=== PATIENT | female | born 1940 | race Caucasian/White ===

== ENCOUNTER 2016-05-12 02:54 | Inpatient (IN) | payer OTHER ==
--- NOTE | 2016-05-12 03:09 | EDPHY ---
HPI/HX/ROS/PE/MDM Narrative: Chief complaint: Left ankle injury HPI: 76-year-old woman with unclear medical history [place] . Patient was being assisted to ambulate by her when she slipped and twisted her ankle. Per EMS when they arrived she seems confused and this has progressed during the transport of her. states that she does have a history of dementia and this seems to have been waxing waiting recently been worsening the last several weeks. Patient has been refusing all treatment by EMS. They gave her some Versed and fentanyl and she has calmed down. Further history is unavailable as the patient is refusing to answer questions. ROS: Unavailable secondary the patient is unwilling to answer questions or cooperate Past medical history: Hypertension Chronic hypoxic respiratory failure Multiple myeloma in remission Morbid obesity Compression fracture Breast cancer status post lumpectomy and radiation Peripheral neuropathy Bilateral hip and knee arthroplasties Physical exam: Gen: Awake, Alert, No Distress HEENT: Nose: no rhinorrhea Eyes: PERRLA, EOMI Mouth: Dry mucosa Neck: Supple, no JVD Chest: nontender, lungs clear to auscultation Heart: S1, S2 normal, no murmur Abd: Soft, non-tender, no guarding Back: no CVA tenderness, no midline tenderness Ext: no edema, left ankle ears some swelling and deformity to the lateral ankle. There is tenderness in the lateral malleolus. Skin: no rash Neuro: CN II-XII intact, Sensation grossly intact, Strength 5/5 in bilateral upper and lower extremities ED Course: CT scan of the brain: No acute process Left ankle x-ray. Old appearing avulsion of the medial malleolus, no obvious acute injuries. Impression: 76-year-old female presenting after a fall with ankle pain. Patient has a delirium now, possibly secondary to recently worsening dementia symptoms. Per patient has been getting increasing confused particularly in the evening. She is normally requires assistance transferring at home, now has ankle pain with no obvious deformity. She has required Versed and fentanyl by EMS. Still awaiting blood results. She will certainly need to be admitted for further evaluation. I have discussed with Dr. Gillette, hospitalist. Will admit to his service for further care. General Initial Vital Signs: Initial Vital Signs Temperature (C) 35.9 C L 05/12/16 03:08 Heart Rate 68 05/12/16 03:08 Respiratory Rate 18 05/12/16 03:08 Blood Pressure 171/72 H 05/12/16 03:08 O2 Sat (%) 93 05/12/16 03:08 O2 Delivery Mode Nasal Cannula O2 (L/minute) 4 Allergies/Adverse Reactions: No Allergies [NKDA] Allergy (Unknown, Verified 08/20/12 13:30) Home Medications: Medication Instructions Recorded ALPRAZolam [Xanax 0.5 MG (*)] 1 tab PO TID PRN 10/24/15 Fluticasone/Salmeter 100/50Mcg 1 puffs IH BID 10/24/15 [Advair 100/50 (*)] Furosemide [Lasix 20 MG (*)] 40 mg PO DAILY 10/24/15 Gabapentin [Neurontin 300 MG (*)] 600 mg PO HS 10/24/15 Herbals/Supplements -Info Only 1 ea PO DAILY 10/24/15 Potassium Cl [Klor-Con 10 meq (RX)] 20 meq PO DAILY 10/24/15 amLODIPine BESYLATE [Norvasc 5 mg 5 mg PO DAILY 10/24/15 (*)] celeCOXIB [Celebrex (*)] 200 mg PO DAILY 10/24/15 diphenhydrAMINE [Benadryl 25 MG 25 mg PO DAILY PRN 10/24/15 (*)] Gabapentin [Neurontin 300 MG (*)] 300 mg PO DAILY06 10/25/15 Oxybutynin Chloride [OXYBUTYNIN 5 mg PO DAILY 10/25/15 CHLORIDE ER] Nystatin Powder [Mycostatin Powder] 1 devendra TP TID #0 powder 10/27/15 oxyCODONE IR [Oxycodone Ir (*)] 5 mg PO Q4 PRN #0 tab 10/27/15
[2016-05-12] MEDS ORDERED: HALOPERIDOL LACT 5 MG/ML INJ IVP ONE (05:15)
[2016-05-12] MEDS ORDERED: HALOPERIDOL LACT 5 MG/ML INJ ONE (05:18)
[2016-05-12] MEDS ORDERED: ONDANSETRON DISINTEGRATING 4 MG TAB PO PRN (07:25)
[2016-05-12] MEDS ORDERED: ONDANSETRON 4 MG/2 ML VIAL IVP PRN (07:25)
--- NOTE | 2016-05-12 08:01 | GHP ---
[f rep st] HISTORY AND PHYSICAL DATE OF ADMISSION: 05/12/2016 CHIEF COMPLAINT: Left ankle pain. HISTORY OF PRESENT ILLNESS: This is a 76-year-old female, with a history of obesity and chronic nitin lity at baseline. At baseline she is able to pivot, but her basically transports her from be d to wheelchair to bathroom. Apparently, when she was pivoting she twisted her ankle and is having p ain. In the emergency department she is having significant amount of shoulder pain and was unable to cooperate. She has received 5 mg Haldol and is much more sedated. Her says that she has be en getting more confused in the evening, but she does respond to some questions, currently she is not that interactive. REVIEW OF SYSTEMS: Unable to obtain secondary to patient's sedation. PAST MEDICAL HISTORY: 1. Morbid obesity. 2. Asthma. 3. Multiple myeloma, in remission. 4. History of DVT. 5. History of breast cancer. 6. History of peripheral neuropathy secondary to chemotherapy. 7. Chronic respiratory failure. 8. Arthritis. 9. Hypertension. SOCIAL HISTORY: No smoking or alcohol. Lives with her up in the [facility]. FAMILY HISTORY: Reviewed and not contributory. PHYSICAL EXAM: VITAL SIGNS: Afebrile. Blood pressure is 168/90, heart rate 71, oxygenation 91% on 4 L. GENERAL: The patient is well developed, in no apparent distress. HEENT: Nonicteric sclerae. Extraocular movements intact. Moist mucous membranes. NECK: Supple. No thyromegaly. LUNGS: Poor effort, but clear to auscultation bilaterally anteriorly. CARDIOVASCULAR: Regular rhythm. A 2/6 s ystolic murmur right upper sternal border. ABDOMEN: Positive bowel sounds. Soft, nontender, nondis tended. No hepatosplenomegaly. EXTREMITIES: No clubbing, cyanosis, or edema. SKIN: Significant ex coriation and probable yeast infection over the perineal area. NEURO: Sedated. LABS: No labs were able to be done. Head CT: No acute abnormalities. Ankle x-ray: No obvious fracture. ASSESSMENT: This is a 76-year-old female, with chronic debility and probable advancing dementia, pre senting with left ankle sprain and failure to thrive. PLAN: 1. Left ankle sprain. We will see how she does with physical therapy. 2. Weakness. We will have to see what physical therapy assessment and social work in terms of abili ty for to care for her. 3. Shoulder arthritis. She had been on Celebrex. Will try to continue this if she is on it, when m ed reconciliation is done. 4. Dementia with confusion. 5. History of DVTs. Will use prophylaxis. /[id number]/MODL
--- NOTE | 2016-05-12 08:15 | DX ---
Left Ankle, Three Views History: Pain, post trauma. Fall. Confusion. Comparison: October 24, 2015 Findings: No ankle joint fracture, effusion, or dislocation is identified. There is severe pace planu s. There is a moderate plantar calcaneal spur. There is diffuse low bone density, suspicious for oste oporosis. Impression: Negative..
--- NOTE | 2016-05-12 08:28 | CT ---
CT Head Without Contrast History: Confusion. Fall. Comparison: June 2014. Technique: Standard noncontrast head CT protocol utilizing axial images acquired through the [facility]. Images were reconstructed down to 1.25-mm slice thickness as well. Radiation dose technique was u tilized. Findings: Mild periventricular and deep hemispheric white matter change is seen bilaterally. No evide nce for acute hemorrhage, intracranial mass, or acute infarct. Vascular calcifications are seen intra cranially indicating atherosclerotic disease. The ventricles, sulci, and cisterns are within normal l imits for the patient's age. No evidence for an extraaxial fluid collection. No evidence for skull fr acture. Impression: Mild periventricular and deep hemispheric white matter change that can be seen with small vessel ischemic disease. No evidence of acute intracranial abnormality. Results discussed with Dr. Chepe Clemente at 0339 hours on 12 May 2016. Final interpretation concurs with initial preliminary radiologist impression.
[2016-05-12 09:33] LABS: % IMMATURE GRANULYOCYTES 0.3 % (0.0-1.1); ABSOLUTE IMMATURE GRANULOCYTES 0.03 10^3/uL (0.00-0.10); ADD DIFF? NO; ADD MORPH? NO; ADD SCAN? NO; ATYPICAL LYMPHOCYTE FLAG 10 (0-99); FRAGMENT RBC FLAG 0 (0-99); HEMATOCRIT 41.3 % (38.0-47.0); HEMOGLOBIN 13.9 g/dL (12.6-16.3); LEFT SHIFT FLG 0 (0-99); LIPEMIA HEMOLYSIS FLAG 80 (0-99); MEAN CELL HEMOGLOBIN 30.1 pg (27.9-34.1); MEAN CELL HEMOGLOBIN CONCENTR. 33.7 g/dL (32.4-36.7); MEAN CELL VOLUME 89.4 fL (81.5-99.8); MEAN PLATELET VOLUME 8.7 fL (8.7-11.7); PLATELET CLUMPS FLAG 0 (0-99); PLATELET COUNT 183 10^3/uL (150-400); RED BLOOD CELL COUNT 4.62 10^6/uL (4.18-5.33); RED CELL DISTRIBUTION WIDTH 12.5 % (11.5-15.2)
[2016-05-12 10:05] LABS: ALANINE AMINOTRANSFERASE 29 IU/L (9-52); ALBUMIN 3.4 g/dL (3.5-5.0); ALKALINE PHOSPHATASE 108 IU/L (38-126); ANION GAP 7 mEq/L (8-16); ASPARTATE AMINOTRANSFERASE 26 IU/L (14-46); BILIRUBIN,TOTAL 0.6 mg/dL (0.1-1.4); CALCIUM 8.9 mg/dL (8.5-10.4); CARBON DIOXIDE 26 mEq/l (22-31); CHLORIDE 106 mEq/L (97-110); CREATININE 0.8 mg/dL (0.6-1.0); GLOMERULAR FILTRATION RATE > 60; GLUCOSE 101 mg/dL (70-100); POTASSIUM 4.6 mEq/L (3.5-5.2); SODIUM 139 mEq/L (134-144)
[2016-05-12] MEDS ORDERED: oxyCODONE IR 5 MG TAB PO PRN (11:14)
[2016-05-12] MEDS ORDERED: ALPRAZolam 0.5 MG TAB PO PRN (12:02)
[2016-05-12] MEDS ORDERED: ALBUTEROL 60 PUFFS/8 GM MDI IH PRN (12:02)
--- NOTE | 2016-05-12 15:47 | WOCRNPDOC ---
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 Injury is a combination of both moisture-related factors and shear, with shallow, partial- thickness, friable wounds on both buttocks. Scar tissue noted throughout, indicating this is a long-standing problem for patient. Currently, entire site in blanching. However, given the fragile appearance of this tissue and patient' s immobility, she is at high risk for a pressure-related injury. Advised clear zinc w/ geraldine-care, along w/ turns q. 2 (side to side only), and an Accu-max pump applied to the bed for pressure redistribution. Bilateral Breast Dressing Type: Open to Air Exudate Amount: None Exudate Characteristic(s): None Geraldine Wound Tissue: Raw Geraldine Wound Swelling: None Wound Bed Color: Red Wound Bed Constitution: Smooth Tissue Site Odor: Slight Skin Integrity Problem Comment: Raw, denuded skin under bilateral breast folds, w/ shallow, linear wounds noted. Consistent in appearance with itertriginous dermatitis, where redness is mirrored on both the upper and lower aspect of the folds. Advised webfed offset press operatorMEGAN Schwartz to remove existing anti-fungal cream and apply Interdry sheets to both folds to help manage moisture and friction. Bilateral Groin Incont Assoc Dermatitis Dressing Type: Open to Air Exudate Amount: Scant Exudate Color: Reddish/Yellow Exudate Characteristic(s): Serosanguinous Geraldine Wound Tissue: Erythema, Raw, Swollen, Weeping, Denuded Geraldine Wound Swelling: Moderate Wound Bed Color: Red Skin Integrity Problem Comment: Severe IAD noted in both groin folds, w/ scattered vesicles noted. While the geraldine-wound tissue is consistent w/ IAD, the vesicles are a different type of presentation and this injury is possibly a combination etiologies. Advised webfed offset press operatorMEGAN Yates to remove anti-fungal cream, which is adding too much moisture. Placed Interdry sheets in both groin folds, covering areas of denudement. Bilateral Pannus Dermatitis Dressing Type: Open to Air Exudate Amount: None Exudate Characteristic(s): None Geraldine Wound Tissue: Blanching, Erythema Geraldine Wound Swelling: Mild Wound Bed Color: Red Wound Bed Constitution: Smooth Tissue Skin Integrity Problem Comment: Red, denuded skin with shallow, linear wounds noted in bilateral pannus, consistent in appearance w/ intertriginous dermatitis. Skin has characteristic mirrored redness on both upper and lower fold, w/ linear opening at the base of the fold. Supplied RN w/ Interdry sheets to place in folds, which will help w/ both moisture and friction.
[2016-05-12] MEDS: morphINE 10 MG/0.5 ML UDSYR PO PRN ×2 (16:32→21:53)
[2016-05-12] MEDS: HEPARIN 5,000 UNIT/0.5 ML SYR SC SCH ×2 (16:36→22:03)
[2016-05-12 17:12] LABS: COLOR YELLOW; LEUKOCYTE ESTERASE,URINE TRACE (NEGATIVE); NITRITE,URINE NEGATIVE (NEGATIVE)
[2016-05-12 17:15] LABS: BACTERIA TRACE /hpf (NONE SEEN); MUCUS TRACE /lpf (NONE-1+)
[2016-05-12] MEDS: MONTELUKAST SODIUM 10 MG TAB PO SCH (18:23)
[2016-05-12] MEDS: FLUTICASONE/SALMETER 100/50MCG DISKUS IH SCH (19:57)
[2016-05-12] MEDS: GABAPENTIN 300 MG CAP PO SCH (22:01)
[2016-05-13] MEDS: morphINE 10 MG/0.5 ML UDSYR PO PRN ×5 (03:25→22:34)
[2016-05-13] MEDS: GABAPENTIN 300 MG CAP PO SCH ×2 (06:40→22:34)
[2016-05-13] MEDS: HEPARIN 5,000 UNIT/0.5 ML SYR SC SCH ×3 (06:41→22:35)
[2016-05-13] MEDS: FLUTICASONE/SALMETER 100/50MCG DISKUS IH SCH ×2 (08:08→21:01)
[2016-05-13] MEDS ORDERED: NON-FORMULARY NEW DRUG (Esomeprazole Mag Trihydrate [Nexium] 40 MG) PO SCH (09:00)
[2016-05-13] MEDS ORDERED: Herbals/Supplements -Info Only PO SCH (09:00)
--- NOTE | 2016-05-13 10:11 | HOSPPROG ---
Hospitalist Progress Note Assessment/Plan: 76 y/o female with history of dementia presenting with #Adult Failure to Thrive -Pt is refusing meds and refusing to eat # Immobility with reported left ankle sprain found to have severe incontinence associated dermatitis (present on admission) -Cont wound care -palliative care consult ordered # Dementia with possible Delirium vs progressive dementia -UA show trace leuks doubt uti is causing her symptoms -will monitor off abx for now and consider starting based on tomorrows serum wbc -IVF containing dextrose considering ketones in urine -check tsh # History of DVT #generalized pain and discomfort possibly contributing to delirium -cont to trial roxanol as ordered -bowel protocol Pt is high risk dispo: palliative care consult ordered dc to snf vs possibly home with hospice Subjective: pt is confused. does not answer questions appropriately Objective: Vital Signs Temp Pulse Resp BP Pulse Ox 36.8 C 90 18 148/73 H 94 05/13/16 04:31 05/13/16 08:08 05/13/16 08:08 05/13/16 04:31 05/13/16 08:08 Laboratory Results 05/12/16 09:24 05/12/16 09:24 05/12/16 05/13/16 05/14/16 05:59 05:59 05:59 Intake Total 100 Output Total 2 150 Balance -2 -50 refuses exam - Physical Exam Constitutional: chronically ill appearing, uncomfortable Neurologic: CN II-XII Intact, No AAOx3 (oriented to name only), No facial droop ICD10 Worksheet Patient Problems: Problems Problem Status Diagnosed Knee pain, acute Acute Lower limb nerve lesion Active Multiple myeloma in remission Active Back pain Acute Decubital ulcer Acute Yeast infection involving the vagina and surrounding area Acute GERD (gastroesophageal reflux disease) Chronic Hypertension Chronic
[2016-05-13] MEDS: PANTOPRAZOLE SODIUM 40 MG TAB PO SCH ×2 (10:37→11:07)
[2016-05-13] MEDS: POLYETHYLENE GLYCOL 3350 17 GM PKT PO SCH ×2 (10:37→11:25)
[2016-05-13] MEDS: LISINOPRIL/HCTZ 20/12.5MG 1 EA TAB PO SCH ×2 (10:37→11:07)
--- NOTE | 2016-05-13 15:52 | PDPCPN ---
Palliative Care Progress Note Assessment/Plan: Referring provider: Dr Goldstein Reason for consult: Complex medical decision making Symptom control HPI: Bridgett King is a 76 yo female with PMH HTN, Asthma, multiple myeloma in remission, dementia, chronic pain, and chronic disability admitted to the hospital for increasing confusion and inability to care for herself at home. Found to have severe incontinence related dermatitis and acute confusion without known cause. Patient and are familiar to me as she was seen at home for routine care September 2015. At that time patient dementia was mild and able to care for herself with the help of her . She was mostly wheelchair bound at that point due to chronic pain in her shoulders. Spoke with outpatient memory care program resident who states patient has continued to refuse evaluation by PCP but was receiving home health care services. Patient and family have been reluctant to accept increasing help at home at times. Palliative care consulted for complex medical decision making. Spoke with Layton over the phone who stated he is not returning back to the hospital until later this evening. Discussed palliative care and he stated "thats sending someone to hospice to ". Clarified purpose of palliative care is to have a discussion about goals of care as well as values and what matters most depending on the individual that sometimes mean hospice care. He stated he wasn't ready for hospice care. Agreed we would meet on Monday if Bridgett is still in the hospital. Assessment: Physical: - Pain: chronic neuropathy from breast cancer treatment. Chronic bilateral shoulder pain - on scheduled gabapentin and Celebrex - roxanol PRN for any increased pain - weakness - PT/OT on consult Emotional/psychological: Confusion: acute on chronic. Significant decline from baseline - haldol PRN is best choice for any agitation Advanced Care Planning: Is patient decisional?: No Code Status: Full MD POA: is decision maker, though no MDPOA on file Plan: Will have spirtual care follow up with tomorrow. PC will attempt follow up on Monday if still in the hospital. Otherwise plans are for [facility] for rehab when medically ready with potential for intermediate care after rehab completes. Subjective: no Objective: Social History: to [place]. Has a son and daughter involved. Medication list reviewed ROS: General: fatigue, weakness, weight loss ENT: negative Resp: negative GI: poor appetite : negative MS: shoulder pain Skin: excoriation Neuro: negative Psych: confusion, agitation, anxiety Functional assessment: PPS: 30% Functional status: dependent on ADLs, IADLs Vital Signs Temp Pulse Resp BP Pulse Ox 36.6 C 96 20 177/98 H 95 05/13/16 11:20 05/13/16 11:20 05/13/16 11:20 05/13/16 11:20 05/13/16 11:20 Laboratory Results 05/12/16 09:24 05/12/16 09:24 05/12/16 05/13/16 05/14/16 05:59 05:59 05:59 Intake Total 100 Output Total 2 150 Balance -2 -50 Physical Exam - Physical Exam General Appearance: alert, no apparent distress Respiratory: No respiratory distress, No accessory muscle use Skin: normal color, warm/dry Extremities: pedal edema Neuro/Psych: disoriented to person, disoriented to place, disoriented to time ICD10 Worksheet Patient Problems: Problems Problem Status Diagnosed Knee pain, acute Acute Palliative care encounter Acute Lower limb nerve lesion Active Multiple myeloma in remission Active Back pain Acute Decubital ulcer Acute Yeast infection involving the vagina and surrounding area Acute GERD (gastroesophageal reflux disease) Chronic Hypertension Chronic - ICD10 Problem Qualifiers (1) Palliative care encounter
--- NOTE | 2016-05-13 16:57 | WOCRNPDOC ---
WOCRN Advanced Assessment Note - Skin Integrity Problem, Advanced Assess Generalized Buttock Incont Assoc Dermatitis Geraldine Wound Tissue: Blanching, Erythema Geraldine Wound Swelling: Mild Skin Integrity Problem Comment: Site much improved since yesterday's assessment. Clear zinc and regular geraldine-care appear to be mitigating the IAD. Advised grey roll worker Salvador that nursing may apply Cavilon skin prep to skin across buttocks to protect skin. In addition, Allevyn Life foam dressing may be applied to open shear wounds on R buttock for additional protection. Wound RN will reassess site on 05/15.
[2016-05-13] MEDS: MONTELUKAST SODIUM 10 MG TAB PO SCH (18:27)
[2016-05-13] MEDS ORDERED: amLODIPine BESYLATE 5 MG TAB PO ONE (22:30)
[2016-05-13] MEDS: amLODIPine BESYLATE 5 MG TAB PO ONE ×2 (22:36→22:38)
[2016-05-14] MEDS: morphINE 10 MG/0.5 ML UDSYR PO PRN (01:15)
[2016-05-14] MEDS: GABAPENTIN 300 MG CAP PO SCH ×2 (04:46→04:58)
[2016-05-14] MEDS: HEPARIN 5,000 UNIT/0.5 ML SYR SC SCH ×3 (04:46→21:14)
[2016-05-14 05:33] LABS: % IMMATURE GRANULYOCYTES 0.4 % (0.0-1.1); ABSOLUTE IMMATURE GRANULOCYTES 0.03 10^3/uL (0.00-0.10); ADD DIFF? NO; ADD MORPH? NO; ADD SCAN? NO; ATYPICAL LYMPHOCYTE FLAG 10 (0-99); FRAGMENT RBC FLAG 0 (0-99); HEMATOCRIT 43.4 % (38.0-47.0); HEMOGLOBIN 14.4 g/dL (12.6-16.3); LEFT SHIFT FLG 0 (0-99); LIPEMIA HEMOLYSIS FLAG 80 (0-99); MEAN CELL HEMOGLOBIN 29.4 pg (27.9-34.1); MEAN CELL HEMOGLOBIN CONCENTR. 33.2 g/dL (32.4-36.7); MEAN CELL VOLUME 88.6 fL (81.5-99.8); MEAN PLATELET VOLUME 8.8 fL (8.7-11.7); PLATELET CLUMPS FLAG 0 (0-99); PLATELET COUNT 197 10^3/uL (150-400); RED CELL DISTRIBUTION WIDTH 12.5 % (11.5-15.2)
[2016-05-14 05:55] LABS: ANION GAP 12 mEq/L (8-16); CALCIUM 9.8 mg/dL (8.5-10.4); CARBON DIOXIDE 28 mEq/l (22-31); CHLORIDE 101 mEq/L (97-110); CREATININE 0.8 mg/dL (0.6-1.0); GLOMERULAR FILTRATION RATE > 60; GLUCOSE 99 mg/dL (70-100); POTASSIUM 4.2 mEq/L (3.5-5.2); SODIUM 141 mEq/L (134-144)
[2016-05-14] MEDS: D5W 1/2 NS W/ 20 KCl/L 1,000 ML IV SCH ×2 (08:46→23:10)
[2016-05-14] MEDS: FLUTICASONE/SALMETER 100/50MCG DISKUS IH SCH ×2 (09:23→19:08)
--- NOTE | 2016-05-14 09:37 | DX ---
Portable Chest 929 a.m. History: Altered mental status, history of recent fall Comparison: October 24, 2015, June 20, 2014, August 12, 2012 Findings: The heart is large. The pulmonary vascularity is equalized. There is no obvious pulmonary e maddy. There is chronic or recurrent consolidation at the lateral left base. It is difficult to exclud e a small left pleural effusion vs chronic pleural thickening. The right shoulder is again malalignme nt with the glenoid. Kyphoplasty cement is again noted in the L1 vertebral body. A thoracic-lumbar sc oliosis is stable. I do not identify an acute rib fracture. Impression: 1. Chronic cardiomegaly with pulmonary venous hypertension, but no overt failure. 2. Suspect chronic left basilar scarring rather than recurrent left lower lobe pneumonia. 3. Chronic or recurrent malalignment of the right shoulder.
[2016-05-14] MEDS: LISINOPRIL/HCTZ 20/12.5MG 1 EA TAB PO SCH (10:05)
[2016-05-14] MEDS: POLYETHYLENE GLYCOL 3350 17 GM PKT PO SCH (10:05)
[2016-05-14] MEDS: PANTOPRAZOLE SODIUM 40 MG TAB PO SCH (10:05)
[2016-05-14 10:21] LABS: COLOR YELLOW; LEUKOCYTE ESTERASE,URINE NEGATIVE (NEGATIVE); NITRITE,URINE NEGATIVE (NEGATIVE)
[2016-05-14 10:26] LABS: MUCUS 4+ /lpf (NONE-1+)
--- NOTE | 2016-05-14 14:35 | HOSPPROG ---
Hospitalist Progress Note Assessment/Plan: DIAGNOSIS: # ACUTE DECREASE IN ALERTNESS, UNCERTAIN ETIOLOGY # ACUTE ENCEPHALOPATHY, LIKELY MULTIFACTORIAL # ADMINISTRATION OF MULTIPLE SEDATING MEDICATIONS # ACUTE ANKLE INJURY WITHOUT EVIDENCE OF FRACTURE # DEHYDRATION WITH MILD HYPERNATREMIA # CHRONIC ADVANCED DEMENTIA # CHRONIC NEUROPATHY PAIN FROM PREVIOUS CHEMOTHERAPY The patient's mental status has changed remarkably since her admission here approximately 2 days ago. She came in with agitation and confusion, most likely caused by acute pain of injury on top of her chronic advanced dementia. Yesterday she was reported to me as having been still awake but somewhat stuporous, declining food and medications from the nursing staff though she was eating for her family. She was not answering questions for the staff. She did not participate well yesterday with attempted therapies. Today as I have visit the patient and observe her through today she has been barely responsive, only opening her eyes and turning slightly to voice but no other response. My highest suspicion is for dehydration in addition to multiple sedating medicines including fentanyl and Versed which were given in the ambulance route to the ER, Haldol given in the ER, multiple doses of narcotic analgesics given here, as well as her chronic gabapentin at fairly high dose for her age. She has home use of benzodiazepine and that has been prescribed as needed here but she has gotten no doses of benzodiazepine here. I cannot find any evidence of infection, internal organ dysfunction, or other metabolic issue. She is breathing oxygen by nasal cannula here but her oxygen saturations have all been between 95 and 99% and I do not think she needs as much oxygen as she is getting. I have spoken with her family at the bedside about her situation. They are concerned about the possibility of stroke. The gradual onset of this syndrome is not very consistent with stroke and I do not think that is what she has, however her unresponsive state makes evaluating for stroke clinically very difficult by examination. I have ordered an MRI scan to evaluate for the possibility of a brainstem lesion, though at this point between her gradual onset of symptoms and no definite known time of arrival at her current neurologic state there would be no safe indication for use of thrombolytics so that calling a stroke alert is not indicated and have not done so. I am not worried about intracranial hemorrhage from her fall at home as she had a witnessed fall down, did not hit her head, and had a CT scan at the time of admission with no evidence of bleeding. PLANS: -MRI of the brain is ordered -I have also ordered arterial blood glass to check on pH and pCO2 -IV fluids for hydration and electrolyte management -I have discontinued all of her sedating medicines at this time - SUBJECTIVE: The patient is unresponsive so no symptom evaluation possible The nurses have noted decreased in responsiveness gradually over the last 2 days culminating in her being very unresponsive now. OBJECTIVE Vitals reviewed: No fevers, borderline high systolic blood pressures otherwise normal Exam: Lying in bed sleeping with mouth open and eyes closed, respirations appear normal. In response to me calling her name she does open her eyes and turns her head slightly toward me. This is the only response I get from her at all at this time. I did not find abnormal reflexes on my examination. There is no tremor. Her pupils are normal in diameter and response to light skin warm dry color ok resps not labored lungs clear BSs heart regular abd soft nondistended nontender, bowel sounds present limbs warm, no edema iv site ok On review of lab she now has a mild hypernatremia; I ordered a repeat urinalysis as the initial was slightly abnormal in today's urinalysis shows no sign of infection Chest x-ray today, my personal interpretation of images: There is a haziness obscuring the lateral the left border of the left ventricle as well as the lateral portion of the left hemidiaphragm which is unchanged from 2015. Some of this may be due to obesity though there could be some scarring. There is no meniscus show and I do not think this is likely an effusion. Objective: Vital Signs Temp Pulse Resp BP Pulse Ox 36.9 C 66 18 145/74 H 99 05/14/16 12:26 05/14/16 12:26 05/14/16 12:26 05/14/16 12:26 05/14/16 12:26 Laboratory Results 05/14/16 05:08 05/14/16 05:08 05/13/16 05/14/16 05/15/16 06:59 06:59 06:59 Intake Total 100 500 Output Total 150 2 Balance -50 498 ICD10 Worksheet Patient Problems: Problems Problem Status Diagnosed Knee pain, acute Acute Palliative care encounter Acute Lower limb nerve lesion Active Multiple myeloma in remission Active Back pain Acute Decubital ulcer Acute Yeast infection involving the vagina and surrounding area Acute GERD (gastroesophageal reflux disease) Chronic Hypertension Chronic
--- NOTE | 2016-05-14 16:14 | MR ---
MRI of the Brain (Without Contrast) History: Possible stroke, altered mental status, confusion, recent fall. Comparison: Head CT May 12, 2016 Technique: T1-weighted images were acquired axially and sagittally from the foramen magnum to the ve rtex. Axial fast inversion recovery, fast T2-weighted, GRE and diffusion-weighted axial images were obtained without contrast. Findings: There is moderate age-appropriate cerebral atrophy. There is scattered bilateral isovolumic T2-weighted foci of white matter hyperintensity involving the periventricular deep and subcortical w mariam matter of the supratentorium, of in nature often seen in elderly often hypertensive patients. Th e ventricles, cisterns, and sulci are consistent with each other. There is no hydrocephalus, midline shift, herniation, or epidural/subdural hematomas. No intracranial hemorrhage or masses. Diffusion-we ighted sequence demonstrates no acute infarct. Cerebellar tonsils are in normal position. 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 There is normal signal flow-void in the superior sagittal sinus, basilar artery, and bilateral in ternal carotid arteries indicating patency. Paranasal sinuses and mastoid air cells are clear. Result s no subdural hematoma. Impression:1. No evidence for acute infarction or posttraumatic hemorrhage or subdural hematoma. 2. Hypervascular ischemic changes of in nature often seen in hypertensive elderly patients. 3. Nothing acute detected.
[2016-05-14] MEDS: MONTELUKAST SODIUM 10 MG TAB PO SCH (19:46)
[2016-05-15] MEDS: HEPARIN 5,000 UNIT/0.5 ML SYR SC SCH ×2 (05:04→17:47)
[2016-05-15 05:48] LABS: BASE EXCESS 1.5 mEq/L (-2.5-2.5); BICARBONATE 26 mEq/L (22-26); MEASURED OXYGEN SATURATION 96 % (92-95); PCO2 44 mmHg (34-38); PO2 77 mmHg (65-75); TCO2 28 mEq/L (23-27)
[2016-05-15] MEDS: FLUTICASONE/SALMETER 100/50MCG DISKUS IH SCH ×2 (09:41→23:11)
[2016-05-15] MEDS: POLYETHYLENE GLYCOL 3350 17 GM PKT PO SCH (09:52)
[2016-05-15] MEDS: PANTOPRAZOLE SODIUM 40 MG TAB PO SCH (09:52)
[2016-05-15] MEDS: LISINOPRIL/HCTZ 20/12.5MG 1 EA TAB PO SCH (09:52)
--- NOTE | 2016-05-15 10:29 | WOCRNPDOC ---
WOCRN Advanced Assessment Note - Skin Integrity Problem, Advanced Assess Generalized Buttock Incont Assoc Dermatitis Dressing Type: Benton Vickers (X2, R and L buttocks) Dressing Description: Intact Exudate Amount: Scant Exudate Color: Reddish/Yellow Exudate Characteristic(s): Serosanguinous Integumentary Issue Intervention: Visualized Under Dressing Josefina Wound Tissue: Blanching, Erythema, Raw, Denuded Josefina Wound Swelling: Mild Wound Bed Color: Red Wound Bed Constitution: Smooth Tissue Skin Integrity Problem Comment: Skin across buttocks improved since previous assessments, with decreased erythema and denudement noted. Patient now has Juarez in place, which will greatly mitigate dmagae from moisture. Continue w/ existing treatment. Bilateral Groin Incont Assoc Dermatitis Dressing Type: Interdry Dressing Description: Clean/Dry Exudate Amount: None Exudate Characteristic(s): None Josefina Wound Tissue: Blanching, Erythema, Raw, Swollen Josefina Wound Swelling: Moderate Wound Bed Color: Red Skin Integrity Problem Comment: Decreased erythema and swelling noted in bilateral groin folds. Patient still has scattered blister-like lesions in bilateral folds, unable to discern etiology though excess moisture is clearly a factor. Interdry sheet presently intact, and appears to be lessening severity of skin breakdown. Bilateral Pannus Dermatitis Dressing Type: Interdry Dressing Description: Clean/Dry, Intact Exudate Amount: None Exudate Characteristic(s): None Josefina Wound Tissue: Erythema, Raw Skin Integrity Problem Comment: Erythema improved since previous assessment. Shallow linear lesion noted in the pannus fold during previous assessment is now resolved. Continue w/ Interdry sheets.
--- NOTE | 2016-05-15 17:33 | HOSPPROG ---
Hospitalist Progress Note Assessment/Plan: DIAGNOSIS: # ACUTE DECREASE IN ALERTNESS, DUE IN PART TO HER MULTIFACTORIAL DELIRIUM WELL SEDATING MEDICATIONS THE # ACUTE ENCEPHALOPATHY (DELIRIUM), MULTIFACTORIAL - this actually started at home on the night for admission and was worsened by her being in the ambulance and hospital as well as other factors # ADMINISTRATION OF MULTIPLE SEDATING MEDICATIONS, NOW DISCONTINUED # ACUTE ANKLE INJURY WITHOUT EVIDENCE OF FRACTURE # DEHYDRATION WITH MILD HYPERNATREMIA # CHRONIC ADVANCED DEMENTIA # CHRONIC NEUROPATHY PAIN FROM PREVIOUS CHEMOTHERAPY The patient's family now describes to me that the patient has had gradually worsening name in word recollection as well as trouble keeping up with schedules over the past year. She also has progressive difficulty with balance and has been spending literally 24 hours per day sitting in the same chair every day only getting up to use the commode with her 's assistance. In addition she has had clear episodes of severe sundowning with dramatic delusional thought processes, very paranoid ideation, and significant behavioral and personality issues during these episodes. Overall this is clearly a picture of progressive neuro degenerative disease typical of a dementia. She apparently and had what sounds like probably a mini-mental status examination done by nurse practitioner in the home recently and was told that she did not have dementia. It is also noteworthy that she is given Xanax on a daily basis at home, and this is ordered at 0.5 mg three times daily p.r.n.. This is certainly going to worsen all these symptoms and also markedly increase her fall risk. I have discussed all this in great detail with the family in outlined steps that I think should be taken as she goes home. She is clearly improving from her decreased alertness and her delirium at this time but has a ways to go to get back to her baseline and remains at very high fall risk care now. PLANS: -Continue avoidance of all sedating and mind-altering medications -Continue PT and OT along with fall risk precautions -Continue hydration with IV as needed -Observed further for resolution of delirium here, wall of line delirium prevention/recovery measures -I have recommended to the family that we stop using Xanax as part of her home medication list and avoid benzodiazepines in the future -It will be helpful to consider adding medication for her dementia -With talked about caregiver support groups for her as well as further caregiver education, and reorienting activities and other measures for helping her keep oriented better at home -She should be kept from napping at home as much as possible that so that she is able to sleep better at night with less sundowning effect if possible but she may need further help with her sleep cycles I spent greater than 50 minutes with the patient's family at the bedside reviewing all the above in detail answering their questions. Total visit time today greater than 1 hour SUBJECTIVE: she is still unable to verbalize any symptoms so no subjective evaluation. There have been no acute episodes or events per the nurses and family OBJECTIVE Vitals reviewed: No fevers, otherwise normal Exam: She is now much more alert and attentive, eyes are very wide open and she makes prolonged eye contact. She does listen to her family and occasionally speaks to them but I can't am not able myself to get her to speak to me or to follow any can commands in particular. She does appear mildly frightened. There is mild anxiety. I cannot find any focal neurologic abnormalities. No tremor skin warm dry color ok resps not labored lungs clear BSs heart regular abd soft nondistended nontender, bowel sounds present limbs warm, no edema iv site ok MRI of the brain yesterday on my review of the images shows no acute abnormalities including no ischemic lesions, bleeding, masses, signs of injury The arterial blood gas showed normal pH and good oxygenation. PCO2 minimally elevated at 44 Objective: Vital Signs Temp Pulse Resp BP Pulse Ox 37.1 C 78 16 143/88 H 95 05/15/16 16:00 05/15/16 16:00 05/15/16 16:00 05/15/16 16:00 05/15/16 16:00 Laboratory Results 05/14/16 05:08 05/14/16 05:08 05/14/16 05/15/16 05/16/16 06:59 06:59 06:59 Intake Total 500 1200 Output Total 2 500 Balance 498 700 ICD10 Worksheet Patient Problems: Problems Problem Status Diagnosed Knee pain, acute Acute Palliative care encounter Acute Lower limb nerve lesion Active Multiple myeloma in remission Active Back pain Acute Decubital ulcer Acute Yeast infection involving the vagina and surrounding area Acute GERD (gastroesophageal reflux disease) Chronic Hypertension Chronic
[2016-05-15] MEDS: MONTELUKAST SODIUM 10 MG TAB PO SCH (17:59)
[2016-05-15] MEDS: D5W 1/2 NS W/ 20 KCl/L 1,000 ML IV SCH (19:53)
[2016-05-16] MEDS: HEPARIN 5,000 UNIT/0.5 ML SYR SC SCH ×4 (01:50→21:33)
[2016-05-16] MEDS: D5W 1/2 NS W/ 20 KCl/L 1,000 ML IV SCH (06:28)
[2016-05-16] MEDS: FLUTICASONE/SALMETER 100/50MCG DISKUS IH SCH ×2 (08:18→20:32)
[2016-05-16] MEDS: LISINOPRIL/HCTZ 20/12.5MG 1 EA TAB PO SCH (08:24)
[2016-05-16] MEDS: PANTOPRAZOLE SODIUM 40 MG TAB PO SCH (08:24)
[2016-05-16] MEDS: POLYETHYLENE GLYCOL 3350 17 GM PKT PO SCH (08:31)
--- NOTE | 2016-05-16 10:09 | HOSPPROG ---
Hospitalist Progress Note Assessment/Plan: DIAGNOSIS: # ACUTE DECREASE IN ALERTNESS, DUE IN PART TO HER MULTIFACTORIAL DELIRIUM WELL SEDATING MEDICATIONS THE # ACUTE ENCEPHALOPATHY (DELIRIUM), MULTIFACTORIAL - this actually started at home on the night for admission and was worsened by her being in the ambulance and hospital as well as other factors # ADMINISTRATION OF MULTIPLE SEDATING MEDICATIONS, CHRONIC AND ACUTE, NOW DISCONTINUED # ACUTE ANKLE INJURY WITHOUT EVIDENCE OF FRACTURE # DEHYDRATION WITH MILD HYPERNATREMIA # INCONTINENCE RELATED SKIN CHANGES # DEMENTIA # SEVERE DECONDITIONING # CHRONIC NEUROPATHY PAIN FROM PREVIOUS CHEMOTHERAPY Overall she has made noticeable daily progress but is not at her baseline, and is severely debilitated in multiple spheres. I believe she will need [facility], but will watch her here another 1-2 days to ensure that her delirium recovers appropriately and there are no other complications. The patient's family has described to me that the patient has had gradually worsening name in word recollection as well as trouble keeping up with schedules over the past year. She also has progressive difficulty with balance and has been spending literally 24 hours per day sitting in the same chair every day only getting up to use the commode with her 's assistance. In addition she has had clear episodes of severe sundowning with dramatic delusional thought processes, very paranoid ideation, and significant behavioral and personality issues during these episodes. Overall this is clearly a picture of progressive neuro degenerative disease typical of a dementia. She apparently and had what sounds like probably a mini-mental status examination done by nurse practitioner in the home recently and was told that she did not have dementia. It is also noteworthy that she is given Xanax on a daily basis at home, and this is ordered at 0.5 mg three times daily p.r.n.. This is certainly going to worsen all these symptoms and also markedly increase her fall risk. I have discussed all this in great detail with the family in outlined steps that I think should be taken as she goes home. She is clearly improving from her decreased alertness and her delirium at this time but has a ways to go to get back to her baseline and remains at very high fall risk care now. PLANS: -Continue avoidance of all sedating and mind-altering medications -Continue PT and OT along with fall risk precautions -Continue hydration with IV as needed -Observed further for resolution of delirium here, with delirium prevention/ recovery measures -I have recommended to the family that we stop using Xanax as part of her home medication list and avoid benzodiazepines in the future -WILL ADD ARICEPT AT THIS TIME -talked about caregiver support groups for her as well as further caregiver education, and reorienting activities and other measures for helping her keep oriented better at home -She should be kept from napping at home as much as possible that so that she is able to sleep better at night with less sundowning effect if possible but she may need further help with her sleep cycles SUBJECTIVE: Today she does tell me that she has some discomfort but is unable to tell me the location of her discomfort or describe it in other ways She does not have any other specific symptoms that I can discern, however communication is limited. OBJECTIVE Vitals reviewed: No fevers, some mild hypertension, otherwise normal Exam: -She is very alert and attentive, eyes are very wide open and she makes prolonged eye contact. She now converses with me though it is clear she is disoriented to where she is and what is going on; she speaks frequently but a lot of her words are mumbled on hard to understand. When I can understand her it is clear that she is hearing 1 of saying and has reasonable comprehension for a lot of it but it is does not understand everything I tell her. No focal neurologic changes and no tremor -skin warm dry color ok -resps not labored -lungs clear BSs -heart regular -abd soft nondistended nontender, bowel sounds present -limbs warm, no edema -iv site ok Objective: Vital Signs Temp Pulse Resp BP Pulse Ox 36.6 C 72 18 148/71 H 98 05/16/16 07:50 05/16/16 08:05 05/16/16 08:05 05/16/16 08:24 05/16/16 08:05 Laboratory Results 05/14/16 05:08 05/14/16 05:08 05/15/16 05/16/16 05/17/16 06:59 06:59 06:59 Intake Total 1200 2425 Output Total 500 2200 Balance 700 225 ICD10 Worksheet Patient Problems: Problems Problem Status Diagnosed Knee pain, acute Acute Palliative care encounter Acute Lower limb nerve lesion Active Multiple myeloma in remission Active Back pain Acute Decubital ulcer Acute Yeast infection involving the vagina and surrounding area Acute GERD (gastroesophageal reflux disease) Chronic Hypertension Chronic
[2016-05-16] MEDS: ACETAMINOPHEN 500 MG TAB PO PRN ×2 (12:08→18:31)
[2016-05-16] MEDS: MONTELUKAST SODIUM 10 MG TAB PO SCH (18:31)
[2016-05-16] MEDS: MELATONIN 3 MG TAB PO SCH (21:34)
[2016-05-16] MEDS: DONEPEZIL HCL 5 MG TAB PO SCH (21:34)
[2016-05-17] MEDS: D5W 1/2 NS W/ 20 KCl/L 1,000 ML IV SCH ×2 (05:19→16:02)
[2016-05-17] MEDS: HEPARIN 5,000 UNIT/0.5 ML SYR SC SCH ×3 (05:19→20:43)
[2016-05-17] MEDS: FLUTICASONE/SALMETER 100/50MCG DISKUS IH SCH ×2 (08:14→22:34)
[2016-05-17] MEDS: LISINOPRIL/HCTZ 20/12.5MG 1 EA TAB PO SCH (09:16)
[2016-05-17] MEDS: PANTOPRAZOLE SODIUM 40 MG TAB PO SCH (09:16)
[2016-05-17] MEDS: POLYETHYLENE GLYCOL 3350 17 GM PKT PO SCH (09:17)
--- NOTE | 2016-05-17 16:25 | HOSPPROG ---
Hospitalist Progress Note Assessment/Plan: DIAGNOSIS: # ACUTE DECREASE IN ALERTNESS, DUE IN PART TO HER MULTIFACTORIAL DELIRIUM WELL MULTIPLE SEDATING MEDICATIONS (some chronic from home and some given by paramedics and here) # ACUTE ENCEPHALOPATHY (DELIRIUM), MULTIFACTORIAL - this actually started at home on the night for admission and was worsened by her being in the ambulance and hospital as well as other factors # ADMINISTRATION OF MULTIPLE SEDATING MEDICATIONS, CHRONIC AND ACUTE, NOW DISCONTINUED # ACUTE ANKLE INJURY WITHOUT EVIDENCE OF FRACTURE -minimal pain now, suspect very minor sprain # DEHYDRATION WITH MILD HYPERNATREMIA # INCONTINENCE RELATED SKIN CHANGES # SEVERE GAIT INSTABILITY, CHRONIC, PARTLY NEUROLOGIC AND PARTLY DECONDITIONING # DEMENTIA # SEVERE DECONDITIONING # CHRONIC NEUROPATHY PAIN FROM PREVIOUS CHEMOTHERAPY Again she is more alert and interactive today than yesterday; better articulation of speech today than yest but a lot of word finding difficulty. Remains weaker than baseline which is extremely weak; using mechanical lift for all transfer/movement. The patient's family has described to me that the patient has had gradually worsening name in word recollection as well as trouble keeping up with schedules over the past year. She also has progressive difficulty with balance and has been spending literally 24 hours per day sitting in the same chair every day only getting up to use the commode with her 's assistance. In addition she has had clear episodes of severe sundowning with dramatic delusional thought processes, very paranoid ideation, and significant behavioral and personality issues during these episodes. Overall this is clearly a picture of progressive neuro degenerative disease typical of a dementia. She apparently and had what sounds like probably a mini-mental status examination done by nurse practitioner in the home recently and was told that she did not have dementia. It is also noteworthy that she is given Xanax on a daily basis at home, and this is ordered at 0.5 mg three times daily p.r.n.. This is certainly going to worsen all these symptoms and also markedly increase her fall risk. I have discussed all this in great detail with the family in outlined steps that I think should be taken as she goes home. She is clearly improving from her decreased alertness and her delirium at this time but has a ways to go to get back to her baseline and remains at very high fall risk care now. PLANS: -Continue avoidance of all sedating and mind-altering medications (especially the xanax she was getting daily at home) -Continue PT and OT along with fall risk precautions -Continue hydration with IV as needed -will recheck basic met panel in am -Observed further for resolution of delirium here, with delirium prevention/ recovery measures -I have recommended to the family that we stop using Xanax as part of her home medication list and avoid benzodiazepines in the future -ARICEPT ADDED AT THIS TIME -talked about caregiver support groups for her as well as further caregiver education, and reorienting activities and other measures for helping her keep oriented better at home -She should be kept from napping at home as much as possible that so that she is able to sleep better at night with less ing effect if possible but she may need further help with her sleep cycles SUBJECTIVE: Denies any pain, but is disoriented enough to not be able to give reliable info OBJECTIVE Vitals reviewed: No fevers, some mild hypertension, otherwise normal Exam: -She is very alert and attentive, more conversant than yesterday but disoriented and with word finding difficulty; no focal but extreme generalized weakness -skin warm dry color ok -resps not labored -lungs clear BSs -heart regular -abd soft nondistended nontender, bowel sounds present -limbs warm, no edema -iv site ok Objective: Vital Signs Temp Pulse Resp BP Pulse Ox 37.3 C 76 18 155/75 H 96 05/17/16 11:18 05/17/16 11:18 05/17/16 11:18 05/17/16 11:18 05/17/16 11:18 Microbiology 05/14/16 10:04 Urine Culture - Final Urine,Catheterized Laboratory Results 05/14/16 05:08 05/14/16 05:08 05/16/16 05/17/16 05/18/16 06:59 06:59 06:59 Intake Total 2425 2029 100 Output Total 2200 2450 Balance 225 -421 100 ICD10 Worksheet Patient Problems: Problems Problem Status Diagnosed Knee pain, acute Acute Palliative care encounter Acute Lower limb nerve lesion Active Multiple myeloma in remission Active Back pain Acute Decubital ulcer Acute Yeast infection involving the vagina and surrounding area Acute GERD (gastroesophageal reflux disease) Chronic Hypertension Chronic
[2016-05-17] MEDS: MONTELUKAST SODIUM 10 MG TAB PO SCH (17:13)
[2016-05-17] MEDS: DONEPEZIL HCL 5 MG TAB PO SCH (20:43)
[2016-05-17] MEDS: MELATONIN 3 MG TAB PO SCH (20:43)
[2016-05-18] MEDS: HEPARIN 5,000 UNIT/0.5 ML SYR SC SCH ×3 (06:00→21:12)
[2016-05-18] MEDS: FLUTICASONE/SALMETER 100/50MCG DISKUS IH SCH ×2 (08:05→20:04)
[2016-05-18] MEDS: POLYETHYLENE GLYCOL 3350 17 GM PKT PO SCH (08:41)
[2016-05-18] MEDS: LISINOPRIL/HCTZ 20/12.5MG 1 EA TAB PO SCH (08:42)
[2016-05-18] MEDS: PANTOPRAZOLE SODIUM 40 MG TAB PO SCH (08:43)
[2016-05-18 13:14] LABS: ANION GAP 11 mEq/L (8-16); CALCIUM 9.9 mg/dL (8.5-10.4); CARBON DIOXIDE 25 mEq/l (22-31); CHLORIDE 103 mEq/L (97-110); CREATININE 0.7 mg/dL (0.6-1.0); GLOMERULAR FILTRATION RATE > 60; GLUCOSE 108 mg/dL (70-100); POTASSIUM 4.5 mEq/L (3.5-5.2); SODIUM 139 mEq/L (134-144)
--- NOTE | 2016-05-18 16:04 | WOCRNPDOC ---
WOCRN Advanced Assessment Note - Skin Integrity Problem, Advanced Assess Generalized Buttock Incont Assoc Dermatitis Dressing Type: Allevyn Life (x2) Dressing Description: Clean/Dry, Intact Integumentary Issue Intervention: Visualized Under Dressing Josefina Wound Tissue: Blanching, Erythema, Xerotic Josefina Wound Swelling: None Wound Bed Color: Purple, Red Wound Bed Constitution: Healed (scar tissue) Skin Integrity Problem Comment: Healing IAD and friction injury to bilateral buttocks flesh and intertriginous dermatitis to gluteal cleft. No open areas, however there is a significant amount of scar tissue on the buttocks. Continue with plan of care. Dwayne GUZMAN assisted with patient turning. Pt's visualized area and reports great improvement to area. Wound care will round again in one week for follow up. Bilateral Groin Incont Assoc Dermatitis Dressing Type: Interdry Integumentary Issue Intervention: Visualized Under Dressing Skin Integrity Problem Comment: Healing. Please do not apply cream and use interdry sheets. Only interdry sheets to area.
--- NOTE | 2016-05-18 18:14 | HOSPPROG ---
Hospitalist Progress Note Assessment/Plan: Acute encephalopathy Delirium with h/o dementia Failure to thrive / weakness Deconditioning Ankle sprain Neuropathy Pt is making slow improvement with her mentation. Doubt infection. She was on multiple sedating medications, all of which have been held and may take some time to clear. PT/OT assessments both recommend SNF vs LTAC. Continue to assess. Will ask for CM assistance with dispo planning. Subjective: Pt awake, answers basic questions, still a bit confused. Denies pain. No fevers/chills. Objective: Vital Signs Temp Pulse Resp BP Pulse Ox 36.6 C 65 18 144/88 H 95 05/18/16 16:40 05/18/16 16:40 05/18/16 16:40 05/18/16 12:00 05/18/16 16:40 Laboratory Results 05/14/16 05:08 05/18/16 12:24 05/17/16 05/18/16 05/19/16 05:59 05:59 05:59 Intake Total 2028 1630 400 Output Total 2450 1800 1350 Balance -421 -170 -950 - Physical Exam Constitutional: no apparent distress Eyes: PERRL Ears, Nose, Mouth, Throat: moist mucous membranes Cardiovascular: regular rate and rhythym Respiratory: no respiratory distress Gastrointestinal: normoactive bowel sounds, soft, non-tender abdomen Skin: warm Psychiatric: encephalopathic, poor memory ICD10 Worksheet Patient Problems: Problems Problem Status Diagnosed Knee pain, acute Acute Palliative care encounter Acute Lower limb nerve lesion Active Multiple myeloma in remission Active Back pain Acute Decubital ulcer Acute Yeast infection involving the vagina and surrounding area Acute GERD (gastroesophageal reflux disease) Chronic Hypertension Chronic
[2016-05-18] MEDS: MONTELUKAST SODIUM 10 MG TAB PO SCH (18:38)
[2016-05-18] MEDS: MELATONIN 3 MG TAB PO SCH ×2 (21:12→21:27)
[2016-05-18] MEDS: DONEPEZIL HCL 5 MG TAB PO SCH ×2 (21:12→21:27)
[2016-05-19] MEDS: HEPARIN 5,000 UNIT/0.5 ML SYR SC SCH ×3 (06:00→21:37)
[2016-05-19] MEDS: D5W 1/2 NS W/ 20 KCl/L 1,000 ML IV SCH ×2 (06:00→17:08)
[2016-05-19 06:26] LABS: CHOLESTEROL 186 mg/dL (140-220); CHOLESTEROL/HDL RATIO 3.58 RATIO (1.00-4.44); HIGH DENSITY LIPOPROTEIN 52 mg/dL (40-85); LDL/HDL RATIO 1.87 RATIO (1.00-3.22); LOW DENSITY LIPOPROTEIN 97 mg/dL (80-100); NON-HIGH DENSITY LIPOPROTEIN 134 mg/dL (90-129); TRIGLYCERIDE 188 mg/dL (35-135); VERY LOW DENSITY LIPOPROTEINS 37 mg/dL (8-25)
[2016-05-19] MEDS: PANTOPRAZOLE SODIUM 40 MG TAB PO SCH (08:12)
[2016-05-19] MEDS: POLYETHYLENE GLYCOL 3350 17 GM PKT PO SCH (08:12)
[2016-05-19] MEDS: LISINOPRIL/HCTZ 20/12.5MG 1 EA TAB PO SCH (08:12)
[2016-05-19] MEDS: FLUTICASONE/SALMETER 100/50MCG DISKUS IH SCH ×2 (11:00→21:35)
--- NOTE | 2016-05-19 14:07 | HOSPPROG ---
Hospitalist Progress Note Assessment/Plan: Acute encephalopathy Advanced dementia Failure to thrive / weakness Deconditioning Ankle sprain Neuropathy Pt is making slow improvement with her mentation, but I suspect she is entering the end stages of dementia. She was on multiple sedating medications, all of which have been held though no significant change in her cognition. PT/OT assessments both recommend SNF vs LTAC. Continue to assess. May consider introducing hospice to . Will continue to monitor for now. Subjective: Pt apparently had a good morning, up and talkative, ate her entire breakfast. No fevers/chills. Denies pain. She is not ambulatory. Objective: Vital Signs Temp Pulse Resp BP Pulse Ox 39.4 C H 78 18 156/84 H 100 05/19/16 13:06 05/19/16 11:49 05/19/16 11:49 05/19/16 11:49 05/19/16 11:49 Laboratory Results 05/14/16 05:08 05/18/16 12:24 05/18/16 05/19/16 05/20/16 05:59 05:59 05:59 Intake Total 1630 4031 Output Total 1800 2750 400 Balance -170 1281 -400 - Physical Exam Constitutional: no apparent distress Eyes: PERRL Ears, Nose, Mouth, Throat: moist mucous membranes Cardiovascular: regular rate and rhythym Respiratory: no respiratory distress Gastrointestinal: normoactive bowel sounds, soft, non-tender abdomen Skin: warm Psychiatric: encephalopathic, flat affect, poor memory ICD10 Worksheet Patient Problems: Problems Problem Status Diagnosed Knee pain, acute Acute Palliative care encounter Acute Lower limb nerve lesion Active Multiple myeloma in remission Active Back pain Acute Decubital ulcer Acute Yeast infection involving the vagina and surrounding area Acute GERD (gastroesophageal reflux disease) Chronic Hypertension Chronic
[2016-05-19] MEDS: MONTELUKAST SODIUM 10 MG TAB PO SCH (18:18)
[2016-05-19] MEDS: MELATONIN 3 MG TAB PO SCH (21:37)
[2016-05-19] MEDS: DONEPEZIL HCL 5 MG TAB PO SCH (21:37)
[2016-05-20] MEDS: HEPARIN 5,000 UNIT/0.5 ML SYR SC SCH ×3 (05:58→21:09)
[2016-05-20] MEDS: LISINOPRIL/HCTZ 20/12.5MG 1 EA TAB PO SCH (09:27)
[2016-05-20] MEDS: POLYETHYLENE GLYCOL 3350 17 GM PKT PO SCH (09:34)
[2016-05-20] MEDS: FLUTICASONE/SALMETER 100/50MCG DISKUS IH SCH ×2 (09:39→21:09)
[2016-05-20] MEDS: PANTOPRAZOLE SODIUM 40 MG TAB PO SCH (09:41)
--- NOTE | 2016-05-20 11:05 | HOSPPROG ---
Hospitalist Progress Note Assessment/Plan: Acute encephalopathy Advanced dementia Failure to thrive / weakness Deconditioning Ankle sprain Neuropathy Suspect this is end stage dementia, but seems to have a more abrupt decline over past few weeks. She was on multiple sedating medications, all of which have been held though no significant change in her cognition. PT/OT assessments both recommend SNF vs LTAC. Pt's more open to palliative care. Will also request neurology consult to get for opinion about her condition and if any further evaluation is recommended. Will check B12, folate. Subjective: Pt awake, quite confused, non-sensical speech, giggling a lot. No fevers (temp of 39.4 documented yesterday was a charting error, wrong pt). Eating a bit, appetite better in the morning. Her cognition, appetite and overall condition seem to worsen in the afternoon/evening. Objective: Vital Signs Temp Pulse Resp BP Pulse Ox 36.6 C 78 18 117/77 90 L 05/20/16 08:00 05/20/16 08:00 05/20/16 08:00 05/20/16 08:00 05/20/16 08:00 Laboratory Results 05/14/16 05:08 05/18/16 12:24 05/19/16 05/20/16 05/21/16 05:59 05:59 05:59 Intake Total 4031 150 1145 Output Total 2750 1600 Balance 1281 -1450 1145 - Physical Exam Constitutional: no apparent distress, chronically ill appearing Eyes: PERRL Ears, Nose, Mouth, Throat: moist mucous membranes Cardiovascular: regular rate and rhythym Respiratory: no respiratory distress Gastrointestinal: normoactive bowel sounds, soft, non-tender abdomen Skin: warm Psychiatric: encephalopathic, poor memory ICD10 Worksheet Patient Problems: Problems Problem Status Diagnosed Knee pain, acute Acute Palliative care encounter Acute Lower limb nerve lesion Active Multiple myeloma in remission Active Back pain Acute Decubital ulcer Acute Yeast infection involving the vagina and surrounding area Acute GERD (gastroesophageal reflux disease) Chronic Hypertension Chronic
[2016-05-20] MEDS: D5W 1/2 NS W/ 20 KCl/L 1,000 ML IV SCH (13:38)
--- NOTE | 2016-05-20 15:37 | PDPCPN ---
Palliative Care Progress Note Assessment/Plan: HPI: Bridgett King is a 76 yo female with PMH HTN, Asthma, multiple myeloma in remission, dementia, chronic pain, and chronic disability admitted to the hospital for increasing confusion and inability to care for herself at home. Found to have severe incontinence related dermatitis and acute confusion without known cause. Patient and are familiar to me as she was seen at home for routine care September 2015. At that time patient dementia was mild and able to care for herself with the help of her . She was mostly wheelchair bound at that point due to chronic pain in her shoulders.Palliative care consulted for complex medical decision making. Bridgett has improved a little from admission with mental status but continues to be significantly below baseline. Spoke wtih her Moises outside of the room this morning. He stated he wants her to be at home but in order to do that she needs to be able to transfer with assist only. Per Moises she really has been declining for the past 3 weeks prior to hospitalization with decreasing mobility to the point just prior to admission she was only able to transfer to wheelchair with his assistance. Her PCP is Echo Bahena [employer] OPERATOR with physician house calls and no longer Dr Blank. Moises stated Bridgett has a living will in which she has stated "no artificial tubes" but they have never had a further conversation regarding end of life care. He is focused on her improvement but did discuss if she does not improve what her options would be. Discussed custodial care and possibly hospice if she continues to decline. We discussed having outpt palliative care follow in rehab to see how she does and help direct her care depending on how she does. Assessment: Physical: - Pain: chronic neuropathy from breast cancer treatment. Chronic bilateral shoulder pain - on scheduled gabapentin and Celebrex - roxanol PRN for any increased pain - weakness - PT/OT on consult Emotional/psychological: Confusion: acute on chronic. Significant decline from baseline - haldol PRN is best choice for any agitation Advanced Care Planning: Is patient decisional?: No Code Status: Full MD POA: is decision maker, though no MDPOA on file Plan:Will have Edgardo outpt palliative care follow up in a couple of weeks at rehab to assess how she is doing and help with goals of care as needed. Plan is still for [place] [facility] care at rehab Subjective: mumbles words Objective: Vital Signs Temp Pulse Resp BP Pulse Ox 36.8 C 73 14 125/76 H 97 05/20/16 12:00 05/20/16 12:00 05/20/16 12:00 05/20/16 12:00 05/20/16 12:00 Laboratory Results 05/14/16 05:08 05/18/16 12:24 05/19/16 05/20/16 05/21/16 05:59 05:59 05:59 Intake Total 4031 150 1145 Output Total 2750 1600 Balance 1281 -1450 1145 Physical Exam - Physical Exam General Appearance: alert, other (confused) Respiratory: No respiratory distress, No accessory muscle use Skin: normal color, warm/dry Extremities: pedal edema Neuro/Psych: alert, disoriented to place, disoriented to time ICD10 Worksheet Patient Problems: Problems Problem Status Diagnosed Knee pain, acute Acute Palliative care encounter Acute Lower limb nerve lesion Active Multiple myeloma in remission Active Back pain Acute Decubital ulcer Acute Yeast infection involving the vagina and surrounding area Acute GERD (gastroesophageal reflux disease) Chronic Hypertension Chronic - ICD10 Problem Qualifiers (1) Palliative care encounter
[2016-05-20] MEDS: MONTELUKAST SODIUM 10 MG TAB PO SCH (17:34)
--- NOTE | 2016-05-20 19:45 | GCON ---
[f rep st] CONSULTATION NEUROLOGIC CONSULTATION REFERRING PHYSICIAN: Dr. Kinney HISTORY: The patient is a 76-year-old woman, whom I am asked to see in neurologic consultation vishal debra decline in mental status. The history is obtained from the since the patient cannot pro vide any meaningful history at this point, and review of the medical records. He says that it has be en about a 4-month process of decline. He says 6 months ago she was basically speaking rather well a nd having a relatively normal conversation, even 2 weeks ago. He said she was able to converse. She might have had some trouble with word finding, but not the profound changes that are present over e last several weeks. She has had chronic problems with arthritis and has had hip surgery a couple o f times and has had bilateral knee replacements, and has been impaired in her walking for many years but that has become more impaired recently as well. She came to the hospital on May 12 with pain in her ankle. Her said she had gotten up to go to the bathroom and slipped. He caught her, and says she did not seem to hit her head. The rescue squad came and he said she was hysterical, sc reaming and swearing, and she received sedation with Haldol. She was having apparent shoulder pain a s well which is chronic from severe arthritis. When she came in, she was not interactive in a meanin gful way. That state has basically persisted throughout this hospital stay. On her admission there was generalized debilitated state documented and she has gone through rather extensive workup so far, that has included labs with relatively unremarkable CBC, electrolytes, and urinalysis. She has had brain imaging, which has not shown anything very specific. There is some nonspecific white matter ch anges documented bilaterally. At no point has myoclonus been documented or seizure activity. Her hu sband says she tends to be a little bit better in the mornings than later in the day, but feels that she is continuing to decline in her mental state. She has not had any fever. At times she will laug h spontaneously or start laughing inappropriately with just basic questions. He says all of that is new. There are no clear-cut alleviating or exacerbating factors. She has not apparently had specifi c new focal numbness or weakness described but a lot of that is very difficult to determine. REVIEW OF SYSTEMS: A 10-point review of systems was completed and negative except for that described above. PAST HISTORY: There is a history of obesity, asthma, multiple myeloma in remission, history of DVT, breast cancer, peripheral neuropathy with prior chemotherapy, respiratory insufficiency, arthritis, h ypertension. SOCIAL HISTORY: No smoking and no alcohol of any significance. She lives with her up in the [facility]. FAMILY HISTORY: Negative for any primary neurologic disease. MEDICATIONS: When she came to the hospital, she was on Celebrex, Xanax as needed, Advair, gabapentin for neuropathic pain, Bactrim, lisinopril, triamterene, Singulair, albuterol. ALLERGIES: No known allergies. When she first came in, she did get some sedatives in the form of Haldol. Sedative medications have been held at this point, and she has not had any sedatives recently. She was started on donepezil Fe bruary 6 for her cognitive impairment, but her says he has not noticed any change since doing that. PHYSICAL EXAM: VITAL SIGNS: Blood pressure 159/87, pulse of 87, respiration 18, temperature 37.1. GENERAL: She has not had any definite fever at any point throughout hospitalization. On exam, she i s overweight, lying in the bed, poorly interactive. NECK: Supple with no bruits or masses. CARDIAC : Regular rate and rhythm with no murmur. NEUROLOGIC: She has a generalized bradykinesia with decr eased facial expression and some mild increased tone in her wrists and elbows. I do not see any myoc lonic jerks or other abnormal movements. She has her eyes open, and her mouth hangs open and does no t generally spontaneously speak at all. She has poor attention to the examiner, but will sometimes t rack me. For the most part, she either does not answer my questions or makes sounds that are un-inte rpretable. A couple of times I might have been able to interpret a word, but then when I showed her some words she did read a couple of words and initiated part of the sentence but then usually simply stops. She was not able to name objects. She could not answer any questions on orientation. She wo uld spontaneously laugh intermittently. The pupils are 3 mm and reactive. Extraocular movements see m to be intact with no nystagmus evident. She does not track particularly well. The visual green a re unreliable for testing. I do not see any asymmetry to facial movements. She does not protrude he r tongue. Hearing is seemingly intact. Motor exam is a little limited by all her orthopedic problem s for reliable detail. She certainly demonstrates at least a solid 4/5 for biceps rn school. Shoulders a re extremely painful so it is not really possible to test deltoid strength but at baseline she cannot really elevate her arms more than maybe 45 degrees, her says. EXTREMITIES: Lower extremiti es likewise in the 3-4 over 5 range but rather difficult to say for sure. Reflexes are difficult to elicit at the knees, where she has had bilateral knee replacements. Upper extremities are about 2+ a t the biceps and brachial radialis without clear-cut asymmetry. Sensory testing likewise hard to det ermine where she actually can feel or not feel. She seems to recognize touch, but I cannot get her t o distinguish details on temperature otherwise. It is not possible to have her stand and ambulate in her current condition. I have reviewed the brain MRI and agree that there seems to be bilateral white matter changes. I did not see any definite increased signal in the basal ganglia. I do not think the temporal lobes have definite increased signal, although I will review this in more detail with Radiology in that there mi ght be some relative brightness in the FLAIR imaging there that I need to discuss with him further. There certainly are florid changes and does not seem to be clear-cut edema. I do not see abnormal en hancement. No acute strokes are evident. The labs are as outlined above. The patient has a very unusual and progressive case of cognitive decline over the course of a few mon ths and particularly over the last few weeks. With such relatively rapid decline, we need to conside r differential diagnoses of an autoimmune limbic type encephalitis even without clear-cut temporal lo be changes and no seizure activity. Paraneoplastic conditions with or without cancer could do this. Sometimes frontotemporal dementia can have a relatively rapid course. Her clinical features are mor e consistent with a frontotemporal lobe process given the abulia and some of the emotional lability w ith spontaneous laughter. She has generalized bradykinesia. I do not think it is likely with no fev er that she has a primary infectious process like herpes encephalitis. An even more ominous conditio n like CJD is on the differential diagnosis but felt to be less likely than a primary neurodegenerati ve process with a rapid course versus 1 of the autoimmune encephalitides. I will plan to obtain CSF studies either tonight or tomorrow, so that we can look if there is any ramirez jd inflammatory markers or increased white count. Depending on those results, we can further tailo r our workup, but I will send away paraneoplastic antibodies for the CSF as well as the serum. We ma y even consider an empiric course of steroids once we see initial CSF results. If this is a primary neurodegenerative dementia with a relative delirium, we may see spontaneous improvement, but right no w, it is worrisome that she is not getting any better, and sedatives have been held. I had a detaile d discussion with her regarding what is happening and the uncertainties but the fact we will try some further diagnostic evaluations. This highly complex case has been a total unit time of 75 minutes with greater than 50% of the time c rigobertoeling and coordination of care and reviewing information with her . We will follow along. /[id number]/MODL
[2016-05-20] MEDS: DONEPEZIL HCL 5 MG TAB PO SCH (19:55)
[2016-05-21] MEDS: HEPARIN 5,000 UNIT/0.5 ML SYR SC SCH (04:28)
[2016-05-21 07:27] LABS: FOLATE SERUM > 20.00 ng/mL (2.80 - >20.00)
[2016-05-21] MEDS: FLUTICASONE/SALMETER 100/50MCG DISKUS IH SCH ×2 (09:08→21:09)
--- NOTE | 2016-05-21 09:32 | NEUROPROG ---
Assessment: Pt is stable overnight with differential diagnosis as outline in my consult last PM. Dementia with worsening and looking into potential treatable causes. LP is pending for today. I discussed with . Subjective: Pt not having any complaints this am. has noted no changes Objective: Vital Signs Temp Pulse Resp BP Pulse Ox 36.4 C 74 19 144/106 H 96 05/21/16 02:17 05/21/16 02:17 05/21/16 02:17 05/21/16 02:17 05/21/16 02:17 Laboratory Results 05/14/16 05:08 05/18/16 12:24 05/20/16 05/21/16 05/22/16 05:59 05:59 05:59 Intake Total 150 2225 Output Total 1600 1550 Balance -1450 675 No change in her state of relative akinesia and mutism. Allergies/Adverse Reactions: No Allergies [NKDA] Allergy (Unknown, Verified 08/20/12 13:30)
[2016-05-21] MEDS: PANTOPRAZOLE SODIUM 40 MG TAB PO SCH (10:01)
[2016-05-21] MEDS: POLYETHYLENE GLYCOL 3350 17 GM PKT PO SCH (10:01)
[2016-05-21] MEDS: LISINOPRIL/HCTZ 20/12.5MG 1 EA TAB PO SCH (10:01)
[2016-05-21 10:05] LABS: INR 1.01 (0.83-1.16); PROTIME(PATIENT) 13.2 SEC (12.0-15.0)
[2016-05-21] MEDS: D5W 1/2 NS W/ 20 KCl/L 1,000 ML IV SCH (10:05)
[2016-05-21] MEDS ORDERED: MAGNESIUM HYDROXIDE 30 ML UDCUP PO PRN (10:29)
[2016-05-21] MEDS ORDERED: BISACODYL 10 MG SUPP PR PRN (10:29)
[2016-05-21] MEDS ORDERED: NA BICARBONATE 50 MEQ/50 ML VIAL ONE (11:48)
[2016-05-21] MEDS ORDERED: LIDO/EPI 1% **for epidural** 30 ML SDV ONE (11:48)
--- NOTE | 2016-05-21 13:07 | DX ---
Lumbar puncture Indication: Altered mental status. Informed consent: Obtained from the patient. Risks and benefits were discussed. Cross Cutting Measure: Patient's current list of medications including all known prescriptions, over -the-counters, herbals, and vitamin/mineral/dietary supplements are reviewed. Medications' name, dos age, frequency, and route of administration are confirmed. Patient is a non-smoker. Prophylactic Antibiotic: Cefazolin was not ordered and administered for antimicrobial prophylaxis be cause it was not medically necessary. VTE Prophylaxis: There is not an order for VTE prophylaxis to be given within 24 hours of the proced ure end time. VTE prophylaxis was not given because it was not medically necessary. Technique: Patient is placed in prone position. A "timeout" procedure was performed to identify the correct patient and the correct procedure. 1% Xylocaine was used for local anesthetic. All elemen ts of maximal sterile barrier technique including cap, mask, sterile gown, sterile gloves, large ster ile sheet, hand hygiene, and 2% chlorhexidine for cutaneous antisepsis, followed. Because of patient's body habitus, a 20-gauge, 20 cm Chiba needle was used. This was guided under flu oroscopic guidance into the right L5-S1 interlaminar space, and advanced under clear CSF was obtained . A total of 16 mL of clear CSF was obtained into 4 collection vials, sent for requested labs. Tran duran tolerated the procedure well. Fluoroscopy: 1.1 minutes, 1 images Impression: L5-S1 right-sided interlaminar LP performed as above, obtaining 16 mL of clear CSF, sent for requested labs.
--- NOTE | 2016-05-21 13:15 | HOSPPROG ---
Hospitalist Progress Note Assessment/Plan: Acute / subacute encephalopathy - no significant change Advanced dementia - rapidly progressive over past several weeks. Failure to thrive / weakness - not ambulatory, requiring lift Deconditioning Ankle sprain Neuropathy Hypoxemic respiratory failure - suspect atelectasis, no change in O2 requirement of 3 LPM, unclear if she uses this at home. This appears to be end stage dementia, but seems to have had a more abrupt decline over past few weeks. She was on multiple sedating medications (Xanax, Gabapentin), all of which have been held, though no significant change in her cognition. Neurology consulted yesterday, appreciate assistance. LP done today with broad workup to r/o treatable causes of rapid cognitive decline. Pt' s more open to palliative care if neuro workup unrevealing. PT/OT assessments both recommend SNF vs LTAC. Subjective: Pt remains confused, non-sensical speech. Able to speak a couple of complete sentences, but able to appropriately engage in conversation or answer questions appropriately. She continues to be more engaged in the morning , eats more in the am, then seems to decline in the afternoon/evening. No fevers. Objective: Vital Signs Temp Pulse Resp BP Pulse Ox 37.4 C 71 21 H 118/75 98 05/21/16 10:21 05/21/16 10:04 05/21/16 10:21 05/21/16 10:04 05/21/16 10:21 Laboratory Results 05/14/16 05:08 05/18/16 12:24 05/20/16 05/21/16 05/22/16 05:59 05:59 05:59 Intake Total 150 2225 Output Total 1600 1550 Balance -1450 675 PT 13.2 SEC (12.0-15.0) 05/21/16 09:50 INR 1.01 (0.83-1.16) 05/21/16 09:50 - Physical Exam Constitutional: chronically ill appearing Ears, Nose, Mouth, Throat: moist mucous membranes Cardiovascular: regular rate and rhythym Respiratory: no respiratory distress Gastrointestinal: normoactive bowel sounds, soft, non-tender abdomen Skin: warm Psychiatric: encephalopathic, poor memory ICD10 Worksheet Patient Problems: Problems Problem Status Diagnosed Knee pain, acute Acute Palliative care encounter Acute Lower limb nerve lesion Active Multiple myeloma in remission Active Back pain Acute Decubital ulcer Acute Yeast infection involving the vagina and surrounding area Acute GERD (gastroesophageal reflux disease) Chronic Hypertension Chronic
[2016-05-21 13:41] LABS: CSF APPEARANCE CLEAR (CLEAR); CSF COLOR COLORLESS (COLORLESS); CSF SUPERNATANT COLORLESS (COLORLESS); WBC, CSF 2 /mm3 (0-5)
[2016-05-21 13:42] LABS: PROTEIN, CSF 77 mg/dL (12-60)
[2016-05-21] MEDS: MONTELUKAST SODIUM 10 MG TAB PO SCH (19:00)
[2016-05-21] MEDS: DONEPEZIL HCL 5 MG TAB PO SCH (20:40)
[2016-05-21] MEDS: SENNOSIDES/DOCUSATE SODIUM TAB PO SCH (23:37)
[2016-05-22] MEDS ORDERED: HYDROmorphONE/DILAUDID 1 MG/ML SYR IVP ONE (05:03)
--- NOTE | 2016-05-22 09:14 | DX ---
Portable AP chest. 05/22/2016 at 8:57 AM History: worsening hypoxemia Comparison study: May 14, 2016 Findings: Pleural/parenchymal fibrosis in the left lower lung is unchanged. Right lung is clear. Card iac silhouette is moderately prominent. Persistent anterior right shoulder dislocation. Impression: Stable chest.
--- NOTE | 2016-05-22 09:43 | NEUROPROG ---
Assessment: Progressive dementing process with parkinsonism. This is most likely a neurodegenerative condition like Frontotemporal dementia or dementia with Lewy bodies rather than Alzheimer's disease. However, the rather rapid subacute decline is atypical for these conditions and has led to the work up for other potential causes. The CSF elevated protein is nonspecific. I don't believe there is [employer] infection, although there is a low chance of prion disease. Autoimmune encephalitides remain differential considerations. My partner with start following up tomorrow, Dr. Deras, or other colleague and will remain available for questions. total of 25 minutes of unit time with more than 50% discussion and coordination of care. Subjective: Pt unable to express any specific complaints but is moaning and seems to be in pain with a left forearm IV infiltration. Family and nurse not no other new changes overall. Objective: Vital Signs Temp Pulse Resp BP Pulse Ox 36.9 C 75 18 123/66 H 91 L 05/22/16 05:38 05/22/16 05:38 05/22/16 05:38 05/22/16 00:00 05/22/16 05:38 Microbiology 05/21/16 12:45 Gram Stain - Final Cerebral Spinal Fluid Laboratory Results 05/14/16 05:08 05/18/16 12:24 05/21/16 05/22/16 05/23/16 05:59 05:59 05:59 Intake Total 2225 4050 Output Total 1550 350 Balance 675 3700 PT 13.2 SEC (12.0-15.0) 05/21/16 09:50 INR 1.01 (0.83-1.16) 05/21/16 09:50 Opens eyes briefly and moaning loudly but not speaking in words currently. She remains bradykinetic with limited ability to interact or communicate. The CSF cell count is normal. The protein is 70 and other specific abnormalities so far. Allergies/Adverse Reactions: No Allergies [NKDA] Allergy (Unknown, Verified 08/20/12 13:30)
[2016-05-22] MEDS ORDERED: morphINE 10 MG/0.5 ML UDSYR PO PRN ×2 (10:26→10:41)
[2016-05-22] MEDS: FLUTICASONE/SALMETER 100/50MCG DISKUS IH SCH ×2 (10:43→22:16)
[2016-05-22] MEDS ORDERED: QUEtiapine FUMARATE 25 MG TAB PO SCH (11:00)
--- NOTE | 2016-05-22 11:01 | HOSPPROG ---
Hospitalist Progress Note Assessment/Plan: Rapidly progressive dementia with behavioral disturbance - DDx frontotemporal dementia vs Lewy body disease vs autoimmune encephalitis vs prion disease / CJD) . CT showed white matter change with small vessel ischemic dz. MRI neg for CVA , showed hypervascular ischemic changes. She has had an abrupt decline over past few weeks. She was on multiple sedating medications (Xanax, Gabapentin), all of which have been held, though no significant change in her cognition. Neurology consult appreciated. LP done 05/21 with broad workup to r/o treatable causes of rapid cognitive decline. Pt's , Moises, more open to palliative care if neuro workup unrevealing. Agitation - increased symptoms today. Possibly related to pain, given po roxanol and will start Seroquel. LUE swelling - IV infiltrated, but will check RUE u/s to r/o DVT. Failure to thrive / weakness - not ambulatory, requiring lift Ground level fall prompting admission - pt suffered left ankle sprain, no head injury reported. Neuropathy - gabapentin held due to concern for oversedation Hypoxemic respiratory failure - suspect atelectasis, increased O2 requirement up to 4 LPM. Repeat CXR stable. Full code DVT PPLX - RAY Dispo - cont inpt while awaiting neuro workup. Will need SNF vs LTAC / memory care. CM involved. Subjective: Pt is screaming out a lot today. She was constipated, received a suppository last night and then had a large BM. She screams out, "I gotta shit! ". She seems distressed by BM production this am. Very agitated with any manipulation by RN to try to clean her bottom and perineal area. Objective: Vital Signs Temp Pulse Resp BP Pulse Ox 36.9 C 75 18 123/66 H 91 L 05/22/16 05:38 05/22/16 05:38 05/22/16 05:38 05/22/16 00:00 05/22/16 05:38 Microbiology 05/21/16 12:45 Gram Stain - Final Cerebral Spinal Fluid Laboratory Results 05/14/16 05:08 05/18/16 12:24 05/21/16 05/22/16 05/23/16 05:59 05:59 05:59 Intake Total 2225 4050 Output Total 1550 350 Balance 675 3700 PT 13.2 SEC (12.0-15.0) 05/21/16 09:50 INR 1.01 (0.83-1.16) 05/21/16 09:50 - Physical Exam Constitutional: chronically ill appearing Cardiovascular: regular rate and rhythym Respiratory: no respiratory distress Gastrointestinal: normoactive bowel sounds, soft, non-tender abdomen Musculoskeletal: other (RUE edema) Psychiatric: agitated ICD10 Worksheet Patient Problems: Problems Problem Status Diagnosed Knee pain, acute Acute Palliative care encounter Acute Lower limb nerve lesion Active Multiple myeloma in remission Active Back pain Acute Decubital ulcer Acute Yeast infection involving the vagina and surrounding area Acute GERD (gastroesophageal reflux disease) Chronic Hypertension Chronic
[2016-05-22] MEDS ORDERED: POLYETHYLENE GLYCOL 3350 17 GM PKT PO PRN (11:11)
[2016-05-22] MEDS ORDERED: SENNOSIDES/DOCUSATE SODIUM TAB PO PRN (11:11)
[2016-05-22] MEDS: morphINE 10 MG/0.5 ML UDSYR PO PRN (14:18)
[2016-05-22] MEDS: QUEtiapine FUMARATE 25 MG TAB PO SCH (14:19)
[2016-05-22] MEDS: PANTOPRAZOLE SODIUM 40 MG TAB PO SCH (14:22)
[2016-05-22] MEDS: LISINOPRIL/HCTZ 20/12.5MG 1 EA TAB PO SCH (14:23)
[2016-05-22] MEDS: POLYETHYLENE GLYCOL 3350 17 GM PKT PO SCH (14:24)
[2016-05-22] MEDS: SENNOSIDES/DOCUSATE SODIUM TAB PO SCH (14:24)
[2016-05-22] MEDS: HEPARIN 5,000 UNIT/0.5 ML SYR SC SCH ×2 (15:35→23:00)
--- NOTE | 2016-05-22 16:06 | US ---
Ultrasound Venous Duplex Doppler left Arm History: Arm pain. LUE swelling Findings: Ultrasound venous duplex/Doppler imaging of left internal jugular vein, subclavian vein, ax illary vein, cephalic vein, brachial vein, basilic vein, radial vein, and ulnar veins demonstrate nor mal compressibility, color flow, and Doppler flow without evidence of deep venous thrombosis. Impression: No deep venous thrombosis left arm.
[2016-05-22] MEDS: D5W 1/2 NS W/ 20 KCl/L 1,000 ML IV SCH (18:49)
[2016-05-22] MEDS: MONTELUKAST SODIUM 10 MG TAB PO SCH (19:43)
[2016-05-22] MEDS: DONEPEZIL HCL 5 MG TAB PO SCH (23:06)
[2016-05-23] MEDS: HEPARIN 5,000 UNIT/0.5 ML SYR SC SCH ×3 (05:54→20:12)
[2016-05-23] MEDS: D5W 1/2 NS W/ 20 KCl/L 1,000 ML IV SCH (06:20)
[2016-05-23] MEDS: morphINE 10 MG/0.5 ML UDSYR PO PRN ×2 (06:21→12:40)
--- NOTE | 2016-05-23 07:55 | NEUROPROG ---
Assessment: INTERVAL HISTORY: Assuming care from Dr. Queen. No family at bedside this AM. Nursing reports relative abulic/akinetic state this AM. No events overnight. Patient nonverbal today, other than repeating "no" over and over. EXAM: VS reviewed in EMR GEN: overweight, laying in bed, in NAD HEENT: NCAT, sclera anicteric, conjunctiva not injected, MMD NECK: supple, nontender, no meningismus CV: RRR s1 s2 wo m/r/c/g. Carotid pulses 2+ wo bruit NEURO: MS: she has eyes closed, does not respond to verbal stimulation, repeats "no" with tactile stim, does not follow commands, utilization noted in the hands, unable to assess higher cortical function due to current mental state CN: pupils 4mm round and reactive. Forced eye closure. Primary gaze centered. No VORs. Grimace and yell to nox stim of the face. Face symmetric. MOTOR: normal bulk, increased tone throughout (seems more paratonic), no adventitial movements, no spontaneous purposeful movements SENSORY: yells to nox stim of the extremities, but does not withdraw COORD: unable to assess due to current mental status REFLEX: left plantar is extensor, right plantar is flexor. No clonus. She has forced contraction of the extremities, so cannot assess DTRs. GAIT: unable to assess due to mental status DATA REVIEW: Labs reviewed in EMR MRI brain wo personally reviewed - nonspecific subcortical T2 FLAIR hyperintensities, likely chronic microvascular in origin. IMPRESSION AND RECOMMENDATIONS: // DEMENTIA WITH RAPID PROGRESSION/DECLINE // PARKINSONISM Patient with relative rapid decline in cognition on a background of indication of dementia. Her structural exam (MRI brain) is relatively unremarkable. CSF with nonspecific proteinoracchia, but no pleocytosis. Metabolic/infectious screening labs unremarkable. In absence of any underlying toxic/metabolic/infectious process that could precipitate an acute delirium on dementia, it is likely she is suffering from a rapidly progressive neurodegenerative process. Prion disease unlikely, as MRI does not reflect typical changes of such. Autoimmune/dysimmune encephalitis remains on the differential. I think given the data at hand, it would be prudent to trial a course of IV steroid to assess for clinical response, which may point towards an autoimmune/ dysimmune process. Her CSF autoimmune encephalitis panel is likely to take about 10 days to result, so I would not wait for these results to trial steroid. Would start with methylprednisolone 1gram IV daily for 3-5 days and we will assess for clinical response. Continue to await results of CSF labs, and continue supportive measures per the primary team. Exercise delirium precautions - lights on/window shade up from [id number], family at bedside, frequent reorientation, sensory optimization with hearing aids/glasses if applicable, OOB to chair or upright position in bed during daytime, nonpharmacologic sleep enhancement at night with cool/quiet/dark room. Avoid sedating/disinhibiting medications. Temp Pulse Resp BP Pulse Ox 36.6 C 67 12 115/59 L 97 05/23/16 05:59 05/23/16 05:59 05/23/16 05:59 05/23/16 05:59 05/23/16 05:59 O2 (L/minute) 4 WBC 8.50 10^3/uL (3.80-9.50) 05/14/16 05:08 RBC 4.90 10^6/uL (4.18-5.33) 05/14/16 05:08 Hgb 14.4 g/dL (12.6-16.3) 05/14/16 05:08 Hct 43.4 % (38.0-47.0) 05/14/16 05:08 MCV 88.6 fL (81.5-99.8) 05/14/16 05:08 MCH 29.4 pg (27.9-34.1) 05/14/16 05:08 MCHC 33.2 g/dL (32.4-36.7) 05/14/16 05:08 RDW 12.5 % (11.5-15.2) 05/14/16 05:08 Plt Count 197 10^3/uL (150-400) 05/14/16 05:08 MPV 8.8 fL (8.7-11.7) 05/14/16 05:08 Neut % (Auto) 74.6 % (39.3-74.2) H 05/14/16 05:08 Lymph % (Auto) 15.8 % (15.0-45.0) 05/14/16 05:08 Mobile % (Auto) 7.4 % (4.5-13.0) 05/14/16 05:08 Eos % (Auto) 1.6 % (0.6-7.6) 05/14/16 05:08 Baso % (Auto) 0.2 % (0.3-1.7) L 05/14/16 05:08 Nucleat RBC Rel Count 0.0 % (0.0-0.2) 05/14/16 05:08 Absolute Neuts (auto) 6.34 10^3/uL (1.70-6.50) 05/14/16 05:08 Absolute Lymphs (auto) 1.34 10^3/uL (1.00-3.00) 05/14/16 05:08 Absolute Monos (auto) 0.63 10^3/uL (0.30-0.80) 05/14/16 05:08 Absolute Eos (auto) 0.14 10^3/uL (0.03-0.40) 05/14/16 05:08 Absolute Basos (auto) 0.02 10^3/uL (0.02-0.10) 05/14/16 05:08 Absolute Nucleated RBC 0.00 10^3/uL (0-0.01) 05/14/16 05:08 Immature Gran % 0.4 % (0.0-1.1) 05/14/16 05:08 Immature Gran # 0.03 10^3/uL (0.00-0.10) 05/14/16 05:08 PT 13.2 SEC (12.0-15.0) 05/21/16 09:50 INR 1.01 (0.83-1.16) 05/21/16 09:50 Puncture Site RIGHT RADIAL 05/15/16 05:38 Patient Temperature 37.1 DEGREES 05/15/16 05:38 pCO2 44 mmHg (34-38) H 05/15/16 05:38 pO2 77 mmHg (65-75) H 05/15/16 05:38 Total CO2 28 mEq/L (23-27) H 05/15/16 05:38 ABG pH 7.39 (7.35-7.45) 05/15/16 05:38 ABG O2 Saturation 96 % (92-95) H 05/15/16 05:38 ABG Base Excess 1.5 mEq/L (-2.5-2.5) 05/15/16 05:38 Total O2 Concentration 3.0 LITERS 05/15/16 05:38 Sodium 139 mEq/L (134-144) 05/18/16 12:24 Potassium 4.5 mEq/L (3.5-5.2) 05/18/16 12:24 Chloride 103 mEq/L (97-110) 05/18/16 12:24 Carbon Dioxide 25 mEq/l (22-31) 05/18/16 12:24 Bicarbonate 26 mEq/L (22-26) 05/15/16 05:38 Anion Gap 11 mEq/L (8-16) 05/18/16 12:24 BUN 14 mg/dL (7-23) 05/18/16 12:24 Creatinine 0.7 mg/dL (0.6-1.0) 05/18/16 12:24 Estimated GFR > 60 05/18/16 12:24 Glucose 108 mg/dL (70-100) H 05/18/16 12:24 Calcium 9.9 mg/dL (8.5-10.4) 05/18/16 12:24 Total Bilirubin 0.6 mg/dL (0.1-1.4) 05/12/16 09:24 Conjugated Bilirubin REJ 05/12/16 05:00 Unconjugated Bilirubin REJ 05/12/16 05:00 AST 26 IU/L (14-46) 05/12/16 09:24 ALT 29 IU/L (9-52) 05/12/16 09:24 Alkaline Phosphatase 108 IU/L (38-126) 05/12/16 09:24 Total Protein 7.0 g/dL (6.3-8.2) 05/12/16 09:24 Albumin 3.4 g/dL (3.5-5.0) L 05/12/16 09:24 Triglycerides 188 mg/dL (35-135) H 05/19/16 05:38 Cholesterol 186 mg/dL (140-220) 05/19/16 05:38 Cholesterol Risk Factr 0.8 (0.2-1.0) 05/19/16 05:38 LDL Cholesterol, Calc 97 mg/dL (80-100) 05/19/16 05:38 LDL Risk Factor 0.6 (0.2-1.0) 05/19/16 05:38 VLDL Cholesterol 37 mg/dL (8-25) H 05/19/16 05:38 Non-HDL Cholesterol 134 mg/dL (90-129) H 05/19/16 05:38 HDL Cholesterol 52 mg/dL (40-85) 05/19/16 05:38 LDL/HDL Ratio 1.87 RATIO (1.00-3.22) 05/19/16 05:38 Cholesterol/HDL Ratio 3.58 RATIO (1.00-4.44) 05/19/16 05:38 Lipase REJ 05/12/16 05:00 Vitamin B12 978 pg/mL (239-931) H 05/21/16 05:55 Folate > 20.00 ng/mL (2.80 - >20.00) 05/21/16 05:55 TSH 1.490 uIU/mL (0.465-4.680) 05/12/16 09:24 Urine Color YELLOW 05/14/16 10:04 Urine Appearance HAZY 05/14/16 10:04 Urine pH 5.0 (5.0-7.5) 05/14/16 10:04 Ur Specific [place] 1.019 (1.002-1.030) 05/14/16 10:04 Urine Protein 1+ (NEGATIVE) H 05/14/16 10:04 Urine Ketones TRACE (NEGATIVE) H 05/14/16 10:04 Urine Blood NEGATIVE (NEGATIVE) 05/14/16 10:04 Urine Nitrate NEGATIVE (NEGATIVE) 05/14/16 10:04 Urine Bilirubin NEGATIVE (NEGATIVE) 05/14/16 10:04 Urine Urobilinogen NEGATIVE EU (0.2-1.0) 05/14/16 10:04 Ur Leukocyte Esterase NEGATIVE (NEGATIVE) 05/14/16 10:04 Urine RBC 1-3 /hpf (0-3) 05/14/16 10:04 Urine WBC 1-3 /hpf (0-3) 05/14/16 10:04 Ur Epithelial Cells TRACE /lpf (NONE-1+) 05/14/16 10:04 Urine Bacteria TRACE /hpf (NONE SEEN) H 05/12/16 17:00 Hyaline Casts 5-15 /lpf (0-1) 05/14/16 10:04 Urine Mucus 4+ /lpf (NONE-1+) H 05/14/16 10:04 Urine Glucose NEGATIVE (NEGATIVE) 05/14/16 10:04 CSF Tube Number 1 05/21/16 12:45 CSF Appearance CLEAR (CLEAR) 05/21/16 12:45 CSF Color COLORLESS (COLORLESS) 05/21/16 12:45 CSF Supernatant COLORLESS (COLORLESS) 05/21/16 12:45 CSF WBC 2 /mm3 (0-5) 05/21/16 12:45 CSF RBC 105 /mm3 (0-0) H 05/21/16 12:45 CSF Glucose 55 mg/dL (50-75) 05/21/16 12:45 CSF Total Protein 77 mg/dL (12-60) H 05/21/16 12:45 CSF Albumin Cancelled 05/21/16 12:45 CSF IgG Cancelled 05/21/16 12:45 Serum IgG Cancelled 05/21/16 12:45 Serum Albumin Cancelled 05/21/16 12:45 Serum IgG/Albumin Cancelled 05/21/16 12:45 CSF IgG/Albumin Cancelled 05/21/16 12:45 CSF IgG Index Cancelled 05/21/16 12:45 Ser Oligoclonal Bands Cancelled 05/21/16 12:45 CSF Oligoclonal Bands Cancelled 05/21/16 12:45 Oligoclonal Band Interp Cancelled 05/21/16 12:45 IgG Synthesis Rate Cancelled 05/21/16 12:45 Paraneoplastic Interp Cancelled 05/20/16 12:45 Neuronal Nuc Ab Type 1 Cancelled 05/20/16 12:45 Neuronal Nuc Ab Type 2 Cancelled 05/20/16 12:45 Neuronal Nuc Ab Type 3 Cancelled 05/20/16 12:45 AGNA-1 Cancelled 05/20/16 12:45 AChR Ganglion Neuronal Cancelled 05/20/16 12:45 Anti-Purkinje Ab Titer Cancelled 05/20/16 12:45 Purkinje Cell (LAND MEASURER-2) Cancelled 05/20/16 12:45 Purkinje Cytoplas Typ Tr Cancelled 05/20/16 12:45 CRMP-5 IgG Antibody Cancelled 05/20/16 12:45 Amphiphysin Antibody Cancelled 05/20/16 12:45 Ca Channel Bind Ab - N Cancelled 05/20/16 12:45 Ca Channel Bind Ab P/Q Cancelled 05/20/16 12:45 Volt-[place] K Channel Ab Cancelled 05/20/16 12:45 Striated Musc Total Ab Cancelled 05/20/16 12:45 Acetylchol Rcpt Bind Ab Cancelled 05/20/16 12:45 HSV Source Description Cancelled 05/21/16 12:45 HSV I DNA PCR Cancelled 05/21/16 12:45 HSV II DNA PCR Cancelled 05/21/16 12:45 Cytology RECEIVED 05/21/16 12:45 Miscellaneous Test Cancelled 05/21/16 12:45 Objective: Vital Signs Temp Pulse Resp BP Pulse Ox 36.6 C 67 12 115/59 L 97 05/23/16 05:59 05/23/16 05:59 05/23/16 05:59 05/23/16 05:59 05/23/16 05:59 Microbiology 05/21/16 12:45 Gram Stain - Final Cerebral Spinal Fluid Laboratory Results 05/14/16 05:08 05/18/16 12:24 05/22/16 05/23/16 05/24/16 05:59 05:59 05:59 Intake Total 4050 945 Output Total 350 450 Balance 3700 495 PT 13.2 SEC (12.0-15.0) 05/21/16 09:50 INR 1.01 (0.83-1.16) 05/21/16 09:50 Allergies/Adverse Reactions: No Allergies [NKDA] Allergy (Unknown, Verified 08/20/12 13:30)
[2016-05-23] MEDS: methylPREDNISolone SOD SUCC 1 GM in D5W 100 ML IV SCH (10:15)
[2016-05-23] MEDS ORDERED: ALTEPLASE 2 MG VIAL IVP PRN (10:24)
[2016-05-23] MEDS: QUEtiapine FUMARATE 25 MG TAB PO SCH (12:26)
[2016-05-23] MEDS: DONEPEZIL HCL 5 MG TAB PO SCH (12:26)
[2016-05-23] MEDS: PANTOPRAZOLE SODIUM 40 MG TAB PO SCH (12:27)
[2016-05-23] MEDS: LISINOPRIL/HCTZ 20/12.5MG 1 EA TAB PO SCH (12:27)
--- NOTE | 2016-05-23 14:00 | IR ---
Imaging Guided Peripherally Inserted Central Catheter History: Dementia, delirium, encephalopathy. Technique: Following informed consent, the left arm was prepped and draped in sterile fashion. All el ements of maximal sterile barrier technique including cap, mask, sterile gown, sterile gloves, large sterile sheet, hand hygiene, and 2% chlorhexidine for cutaneous antisepsis, followed. Ultrasound clark sducer was placed in sterile sleeve and sterile coupling gel was used. Ultrasound evaluation of poten tial access sites was performed. After successfully identifying a patent vessel of adequate size, 1% Xylocaine was used for local anesthetic. Ultrasound guidance was used to puncture the brachial vein with a 21-gauge needle. 0.018 measuring wire was passed centrally under fluoroscopic control. A skin baljinder with scalpel blade was followed by removing the access needle. A 5.5 Armenian peel-away sheath was followed by a 5-Armenian double lumen central catheter, trimmed to 46 cm length. The tip of the cathet er was positioned centrally and the guidewire removed. AP fluoroscopic spot image was obtained in ins piration. The catheter irrigated easily. The hub of the catheter was secured to the skin using a Stat Lock adhesive device, and a sterile dressing was applied. Fluoroscopy time in minutes: 0.3 . Estimated exposure in mGy: 4.1 . Findings: The tip of the central catheter terminates at the junction of the superior vena cava and th e right atrium. Impression: 5-Armenian double lumen peripherally inserted central catheter is ready to use. - - - - - - - - - - - - - - - - - - - - - - - - - - - - - - - - - - - - - - - - - (Cross-cutting measures: Current medications were listed in the medical record, including all known prescriptions, [id number] medications, herbal medications, and nutritional supplements. The pat ient does not smoke. )
--- NOTE | 2016-05-23 14:25 | HOSPPROG ---
Hospitalist Progress Note Assessment/Plan: # Rapidly progressive dementia with behavioral disturbance - DDx frontotemporal dementia, Lewy body, autoimmune encephalitis vs. prion disease). CT head ( personally reviewed and interpreted) showed white matter change with small vessel ischemic dz. MRI neg for CVA. She has had an abrupt decline over past few weeks- She was on multiple sedating medications (Xanax, Gabapentin), all of which have been held. LP done 05/21 with broad workup to r/o treatable causes of rapid cognitive decline- pending - B12 and folate -wnl - starting high-dose IV steroids to treat possible autoimmune causes # acute intermittent Agitation - increased symptoms in past 48 hours- unclear if related to pain. - cont po roxanol - cont Seroquel. # LUE swelling - IV infiltrated-but will check RUE u/s negative for DVT - cont to monitor # Failure to thrive / weakness - not ambulatory, requiring lift # Ground level fall prompting admission - pt suffered left ankle sprain, no head injury reported. # Neuropathy - gabapentin held due to concern for oversedation # Hypoxemic respiratory failure - suspect atelectasis- oxygen saturations 98% on 4 L # Full code # DVT PPLX - RAY # Dispo - cont inpt while awaiting neuro workup. Will need SNF vs LTAC / memory care. CM involved. I have discussed the case with the RN- we will place PICC line today is patient anticipating 3-5 days of IV steroids Subjective: marked agitation overnight Objective: Vital Signs Temp Pulse Resp BP Pulse Ox 37.0 C 65 18 119/66 98 05/23/16 08:00 05/23/16 08:00 05/23/16 08:00 05/23/16 08:00 05/23/16 08:00 Microbiology 05/21/16 12:45 Gram Stain - Final Cerebral Spinal Fluid Laboratory Results 05/14/16 05:08 05/18/16 12:24 05/22/16 05/23/16 05/24/16 05:59 05:59 05:59 Intake Total 4050 945 Output Total 350 450 Balance 3700 495 PT 13.2 SEC (12.0-15.0) 05/21/16 09:50 INR 1.01 (0.83-1.16) 05/21/16 09:50 - Physical Exam Constitutional: chronically ill appearing Eyes: anicteric sclera Ears, Nose, Mouth, Throat: dry mucous membranes Cardiovascular: regular rate and rhythym Respiratory: no respiratory distress, No expiratory wheeze, No inspiratory crackles Gastrointestinal: normoactive bowel sounds Genitourinary: no bladder fullness Skin: warm, normal color Musculoskeletal: No asymmetric calves Neurologic: No AAOx3 Psychiatric: No interacting appropriately Lymph, Heme, Immunologic: no cervical LAD ICD10 Worksheet Patient Problems: Problems Problem Status Diagnosed Knee pain, acute Acute Palliative care encounter Acute Lower limb nerve lesion Active Multiple myeloma in remission Active Back pain Acute Decubital ulcer Acute Yeast infection involving the vagina and surrounding area Acute GERD (gastroesophageal reflux disease) Chronic Hypertension Chronic
[2016-05-23] MEDS: MONTELUKAST SODIUM 10 MG TAB PO SCH (18:21)
[2016-05-24 06:44] LABS: ALANINE AMINOTRANSFERASE 42 IU/L (9-52); ALBUMIN 3.3 g/dL (3.5-5.0); ALKALINE PHOSPHATASE 105 IU/L (38-126); ANION GAP 8 mEq/L (8-16); ASPARTATE AMINOTRANSFERASE 29 IU/L (14-46); BILIRUBIN,TOTAL 0.5 mg/dL (0.1-1.4); CALCIUM 9.8 mg/dL (8.5-10.4); CARBON DIOXIDE 25 mEq/l (22-31); CHLORIDE 103 mEq/L (97-110); CREATININE 0.7 mg/dL (0.6-1.0); GLOMERULAR FILTRATION RATE > 60; GLUCOSE 146 mg/dL (70-100); POTASSIUM 4.1 mEq/L (3.5-5.2); SODIUM 136 mEq/L (134-144); TOTAL PROTEIN 6.7 g/dL (6.3-8.2)
[2016-05-24 06:57] LABS: % IMMATURE GRANULYOCYTES 1.1 % (0.0-1.1); ABSOLUTE IMMATURE GRANULOCYTES 0.09 10^3/uL (0.00-0.10); ADD DIFF? NO; ADD MORPH? NO; ADD SCAN? NO; ATYPICAL LYMPHOCYTE FLAG 0 (0-99); FRAGMENT RBC FLAG 10 (0-99); HEMATOCRIT 40.3 % (38.0-47.0); HEMOGLOBIN 13.8 g/dL (12.6-16.3); LEFT SHIFT FLG 0 (0-99); LIPEMIA HEMOLYSIS FLAG 90 (0-99); MEAN CELL HEMOGLOBIN CONCENTR. 34.2 g/dL (32.4-36.7); MEAN CELL VOLUME 87.6 fL (81.5-99.8); MEAN PLATELET VOLUME 9.5 fL (8.7-11.7); PLATELET CLUMPS FLAG 0 (0-99); PLATELET COUNT 187 10^3/uL (150-400); RED CELL DISTRIBUTION WIDTH 12.1 % (11.5-15.2)
[2016-05-24] MEDS: HEPARIN 5,000 UNIT/0.5 ML SYR SC SCH ×3 (08:05→21:51)
--- NOTE | 2016-05-24 09:52 | NEUROPROG ---
Assessment: Assessment INTERVAL HISTORY: Assuming care from Dr. Queen. No family at bedside this AM. Nursing reports relative abulic/akinetic state this AM. No events overnight. Patient nonverbal today, other than repeating "no" over and over. EXAM: VS reviewed in EMR GEN: overweight, laying in bed, in NAD HEENT: NCAT, sclera anicteric, conjunctiva not injected, MMD NECK: supple, nontender, no meningismus CV: RRR s1 s2 wo m/r/c/g. Carotid pulses 2+ wo bruit NEURO: MS: she has eyes closed, does not respond to verbal stimulation, repeats "no" with tactile stim, does not follow commands, utilization noted in the hands, unable to assess higher cortical function due to current mental state CN: pupils 4mm round and reactive. Forced eye closure. Primary gaze centered. No VORs. Grimace and yell to nox stim of the face. Face symmetric. MOTOR: normal bulk, increased tone throughout (seems more paratonic), no adventitial movements, no spontaneous purposeful movements SENSORY: yells to nox stim of the extremities, but does not withdraw COORD: unable to assess due to current mental status REFLEX: left plantar is extensor, right plantar is flexor. No clonus. She has forced contraction of the extremities, so cannot assess DTRs. GAIT: unable to assess due to mental status DATA REVIEW: Labs reviewed in EMR MRI brain wo personally reviewed - nonspecific subcortical T2 FLAIR hyperintensities, likely chronic microvascular in origin. IMPRESSION AND RECOMMENDATIONS: // DEMENTIA WITH RAPID PROGRESSION/DECLINE // PARKINSONISM Patient with relative rapid decline in cognition on a background of indication of dementia. Her structural exam (MRI brain) is relatively unremarkable. CSF with nonspecific proteinoracchia, but no pleocytosis. Metabolic/infectious screening labs unremarkable. In absence of any underlying toxic/metabolic/infectious process that could precipitate an acute delirium on dementia, it is likely she is suffering from a rapidly progressive neurodegenerative process. Prion disease unlikely, as MRI does not reflect typical changes of such. Autoimmune/dysimmune encephalitis remains on the differential. I think given the data at hand, it would be prudent to trial a course of IV steroid to assess for clinical response, which may point towards an autoimmune/ dysimmune process. Her CSF autoimmune encephalitis panel is likely to take about 10 days to result, so I would not wait for these results to trial steroid. Would start with methylprednisolone 1gram IV daily for 3-5 days and we will assess for clinical response. Continue to await results of CSF labs, and continue supportive measures per the primary team. Exercise delirium precautions - lights on/window shade up from [phone], family at bedside, frequent reorientation, sensory optimization with hearing aids/glasses if applicable, OOB to chair or upright position in bed during daytime, nonpharmacologic sleep enhancement at night with cool/quiet/dark room. Avoid sedating/disinhibiting medications. Temp Pulse Resp BP Pulse Ox 36.6 C 67 12 115/59 L 97 05/23/16 05:59 05/23/16 05:59 05/23/16 05:59 05/23/16 05:59 05/23/16 05:59 O2 (L/minute) 4 WBC 8.50 10^3/uL (3.80-9.50) 05/14/16 05:08 RBC 4.90 10^6/uL (4.18-5.33) 05/14/16 05:08 Hgb 14.4 g/dL (12.6-16.3) 05/14/16 05:08 Hct 43.4 % (38.0-47.0) 05/14/16 05:08 MCV 88.6 fL (81.5-99.8) 05/14/16 05:08 MCH 29.4 pg (27.9-34.1) 05/14/16 05:08 MCHC 33.2 g/dL (32.4-36.7) 05/14/16 05:08 RDW 12.5 % (11.5-15.2) 05/14/16 05:08 Plt Count 197 10^3/uL (150-400) 05/14/16 05:08 MPV 8.8 fL (8.7-11.7) 05/14/16 05:08 Neut % (Auto) 74.6 % (39.3-74.2) H 05/14/16 05:08 Lymph % (Auto) 15.8 % (15.0-45.0) 05/14/16 05:08 [place] % (Auto) 7.4 % (4.5-13.0) 05/14/16 05:08 Eos % (Auto) 1.6 % (0.6-7.6) 05/14/16 05:08 Baso % (Auto) 0.2 % (0.3-1.7) L 05/14/16 05:08 Nucleat RBC Rel Count 0.0 % (0.0-0.2) 05/14/16 05:08 Absolute Neuts (auto) 6.34 10^3/uL (1.70-6.50) 05/14/16 05:08 Absolute Lymphs (auto) 1.34 10^3/uL (1.00-3.00) 05/14/16 05:08 Absolute Monos (auto) 0.63 10^3/uL (0.30-0.80) 05/14/16 05:08 Absolute Eos (auto) 0.14 10^3/uL (0.03-0.40) 05/14/16 05:08 Absolute Basos (auto) 0.02 10^3/uL (0.02-0.10) 05/14/16 05:08 Absolute Nucleated RBC 0.00 10^3/uL (0-0.01) 05/14/16 05:08 Immature Gran % 0.4 % (0.0-1.1) 05/14/16 05:08 Immature Gran # 0.03 10^3/uL (0.00-0.10) 05/14/16 05:08 PT 13.2 SEC (12.0-15.0) 05/21/16 09:50 INR 1.01 (0.83-1.16) 05/21/16 09:50 Puncture Site RIGHT RADIAL 05/15/16 05:38 Patient Temperature 37.1 DEGREES 05/15/16 05:38 pCO2 44 mmHg (34-38) H 05/15/16 05:38 pO2 77 mmHg (65-75) H 05/15/16 05:38 Total CO2 28 mEq/L (23-27) H 05/15/16 05:38 ABG pH 7.39 (7.35-7.45) 05/15/16 05:38 ABG O2 Saturation 96 % (92-95) H 05/15/16 05:38 ABG Base Excess 1.5 mEq/L (-2.5-2.5) 05/15/16 05:38 Total O2 Concentration 3.0 LITERS 05/15/16 05:38 Sodium 139 mEq/L (134-144) 05/18/16 12:24 Potassium 4.5 mEq/L (3.5-5.2) 05/18/16 12:24 Chloride 103 mEq/L (97-110) 05/18/16 12:24 Carbon Dioxide 25 mEq/l (22-31) 05/18/16 12:24 Bicarbonate 26 mEq/L (22-26) 05/15/16 05:38 Anion Gap 11 mEq/L (8-16) 05/18/16 12:24 BUN 14 mg/dL (7-23) 05/18/16 12:24 Creatinine 0.7 mg/dL (0.6-1.0) 05/18/16 12:24 Estimated GFR > 60 05/18/16 12:24 Glucose 108 mg/dL (70-100) H 05/18/16 12:24 Calcium 9.9 mg/dL (8.5-10.4) 05/18/16 12:24 Total Bilirubin 0.6 mg/dL (0.1-1.4) 05/12/16 09:24 Conjugated Bilirubin REJ 05/12/16 05:00 Unconjugated Bilirubin REJ 05/12/16 05:00 AST 26 IU/L (14-46) 05/12/16 09:24 ALT 29 IU/L (9-52) 05/12/16 09:24 Alkaline Phosphatase 108 IU/L (38-126) 05/12/16 09:24 Total Protein 7.0 g/dL (6.3-8.2) 05/12/16 09:24 Albumin 3.4 g/dL (3.5-5.0) L 05/12/16 09:24 Triglycerides 188 mg/dL (35-135) H 05/19/16 05:38 Cholesterol 186 mg/dL (140-220) 05/19/16 05:38 Cholesterol Risk Factr 0.8 (0.2-1.0) 05/19/16 05:38 LDL Cholesterol, Calc 97 mg/dL (80-100) 05/19/16 05:38 LDL Risk Factor 0.6 (0.2-1.0) 05/19/16 05:38 VLDL Cholesterol 37 mg/dL (8-25) H 05/19/16 05:38 Non-HDL Cholesterol 134 mg/dL (90-129) H 05/19/16 05:38 HDL Cholesterol 52 mg/dL (40-85) 05/19/16 05:38 LDL/HDL Ratio 1.87 RATIO (1.00-3.22) 05/19/16 05:38 Cholesterol/HDL Ratio 3.58 RATIO (1.00-4.44) 05/19/16 05:38 Lipase REJ 05/12/16 05:00 Vitamin B12 978 pg/mL (239-931) H 05/21/16 05:55 Folate > 20.00 ng/mL (2.80 - >20.00) 05/21/16 05:55 TSH 1.490 uIU/mL (0.465-4.680) 05/12/16 09:24 Urine Color YELLOW 05/14/16 10:04 Urine Appearance HAZY 05/14/16 10:04 Urine pH 5.0 (5.0-7.5) 05/14/16 10:04 Ur Specific [place] 1.019 (1.002-1.030) 05/14/16 10:04 Urine Protein 1+ (NEGATIVE) H 05/14/16 10:04 Urine Ketones TRACE (NEGATIVE) H 05/14/16 10:04 Urine Blood NEGATIVE (NEGATIVE) 05/14/16 10:04 Urine Nitrate NEGATIVE (NEGATIVE) 05/14/16 10:04 Urine Bilirubin NEGATIVE (NEGATIVE) 05/14/16 10:04 Urine Urobilinogen NEGATIVE EU (0.2-1.0) 05/14/16 10:04 Ur Leukocyte Esterase NEGATIVE (NEGATIVE) 05/14/16 10:04 Urine RBC 1-3 /hpf (0-3) 05/14/16 10:04 Urine WBC 1-3 /hpf (0-3) 05/14/16 10:04 Ur Epithelial Cells TRACE /lpf (NONE-1+) 05/14/16 10:04 Urine Bacteria TRACE /hpf (NONE SEEN) H 05/12/16 17:00 Hyaline Casts 5-15 /lpf (0-1) 05/14/16 10:04 Urine Mucus 4+ /lpf (NONE-1+) H 05/14/16 10:04 Urine Glucose NEGATIVE (NEGATIVE) 05/14/16 10:04 CSF Tube Number 1 05/21/16 12:45 CSF Appearance CLEAR (CLEAR) 05/21/16 12:45 CSF Color COLORLESS (COLORLESS) 05/21/16 12:45 CSF Supernatant COLORLESS (COLORLESS) 05/21/16 12:45 CSF WBC 2 /mm3 (0-5) 05/21/16 12:45 CSF RBC 105 /mm3 (0-0) H 05/21/16 12:45 CSF Glucose 55 mg/dL (50-75) 05/21/16 12:45 CSF Total Protein 77 mg/dL (12-60) H 05/21/16 12:45 CSF Albumin Cancelled 05/21/16 12:45 CSF IgG Cancelled 05/21/16 12:45 Serum IgG Cancelled 05/21/16 12:45 Serum Albumin Cancelled 05/21/16 12:45 Serum IgG/Albumin Cancelled 05/21/16 12:45 CSF IgG/Albumin Cancelled 05/21/16 12:45 CSF IgG Index Cancelled 05/21/16 12:45 Ser Oligoclonal Bands Cancelled 05/21/16 12:45 CSF Oligoclonal Bands Cancelled 05/21/16 12:45 Oligoclonal Band Interp Cancelled 05/21/16 12:45 IgG Synthesis Rate Cancelled 05/21/16 12:45 Paraneoplastic Interp Cancelled 05/20/16 12:45 Neuronal Nuc Ab Type 1 Cancelled 05/20/16 12:45 Neuronal Nuc Ab Type 2 Cancelled 05/20/16 12:45 Neuronal Nuc Ab Type 3 Cancelled 05/20/16 12:45 AGNA-1 Cancelled 05/20/16 12:45 AChR Ganglion Neuronal Cancelled 05/20/16 12:45 Anti-Purkinje Ab Titer Cancelled 05/20/16 12:45 Purkinje Cell ([employer]-2) Cancelled 05/20/16 12:45 Purkinje Cytoplas Typ Tr Cancelled 05/20/16 12:45 CRMP-5 IgG Antibody Cancelled 05/20/16 12:45 Amphiphysin Antibody Cancelled 05/20/16 12:45 Ca Channel Bind Ab - N Cancelled 05/20/16 12:45 Ca Channel Bind Ab P/Q Cancelled 05/20/16 12:45 Volt-[place] K Channel Ab Cancelled 05/20/16 12:45 Striated Musc Total Ab Cancelled 05/20/16 12:45 Acetylchol Rcpt Bind Ab Cancelled 05/20/16 12:45 HSV Source Description Cancelled 05/21/16 12:45 HSV I DNA PCR Cancelled 05/21/16 12:45 HSV II DNA PCR Cancelled 05/21/16 12:45 Cytology RECEIVED 05/21/16 12:45 Miscellaneous Test Cancelled 05/21/16 12:45 Subjective: INTERVAL HISTORY: 05/24: Patient more awake and alert today, still confused, thinks she's in a "sports club in [place]." Denies any pain. No family at bedside. 05/23: Assuming care from Dr. Queen. No family at bedside this AM. Nursing reports relative abulic/akinetic state this AM. No events overnight. Patient nonverbal today, other than repeating "no" over and over. EXAM: VS reviewed in EMR GEN: overweight, laying in bed, in NAD HEENT: NCAT, sclera anicteric, conjunctiva not injected, MMD NECK: supple, nontender, no meningismus CV: RRR s1 s2 wo m/r/c/g. Carotid pulses 2+ wo bruit NEURO: MS: she has eyes closed, opens immediately to auditory stimulation. She is oriented to self only. Reduced attention. Displays utilization behavior. Speech nondysarthric, but hypophonic and bradykinetic. She is bradyphrenic. No language disturbance. No obvious hallucinations. CN: pupils 4mm round and reactive. Blinks to threat OU. Primary gaze centered. She has limited vertical gaze. She has saccadic intrusion with smooth pursuit and motor impersistence. Grimace and nox stim of the face. Face symmetric. Tongue protrudes midline. MOTOR: normal bulk, increased tone throughout (seems more paratonic), no adventitial movements including myoclonus, sustains antigravity in all extremities, but does not participate in formal segmental exam SENSORY: localizes to nox stim in BUEs, briskly withdraws in BLEs COORD: no ataxia with spontaneous movements - does not participate in formal exam REFLEX: plantars extensor, no clonus. She is activating, so cannot assess DTRs. She grasps and has positive glabellar tap. No excess startle response. GAIT: unable to assess due to mental status DATA REVIEW: Labs reviewed in EMR MRI brain wo personally reviewed - nonspecific subcortical T2 FLAIR hyperintensities, likely chronic microvascular in origin. IMPRESSION AND RECOMMENDATIONS: // DEMENTIA WITH RAPID PROGRESSION/DECLINE // PARKINSONISM Patient with relative rapid decline in cognition on a background of indication of dementia. Her structural exam (MRI brain) is relatively unremarkable. CSF with nonspecific proteinoracchia, but no pleocytosis. Metabolic/infectious screening labs unremarkable. In absence of any underlying toxic/metabolic/infectious process that could precipitate an acute delirium on dementia, it is likely she is suffering from a rapidly progressive neurodegenerative process. 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 Given the possibility of neuroleptic sensitive degenrative process, I would discontinue schedule quetiapine for now and use only on an as needed basis for agitation not responsive to behavioral interventions. Prion disease unlikely, as MRI does not reflect typical changes of such and she does not have any other typical stigmata of prion disease. Autoimmune/ dysimmune encephalitis remains on the differential. I would continue IV methylprednisolone for now - today is day 2 - will continue for 3-5 days. Her CSF autoimmune encephalitis panel is likely to take about 10 days to result. Continue to await results of CSF labs, and continue supportive measures per the primary team. Exercise delirium precautions - lights on/window shade up from [phone], family at bedside, frequent reorientation, sensory optimization with hearing aids/glasses if applicable, OOB to chair or upright position in bed during daytime, nonpharmacologic sleep enhancement at night with cool/quiet/dark room. Avoid sedating/disinhibiting medications. Objective: Vital Signs Temp Pulse Resp BP Pulse Ox 36.7 C 83 14 132/80 H 93 05/24/16 09:05 05/24/16 09:05 05/24/16 09:05 05/24/16 09:05 05/24/16 09:05 Microbiology 05/21/16 12:45 Gram Stain - Final Cerebral Spinal Fluid Laboratory Results 05/24/16 05:27 05/24/16 05:27 05/23/16 05/24/16 05/25/16 05:59 05:59 05:59 Intake Total 945 20 Output Total 450 750 Balance 495 -730 PT 13.2 SEC (12.0-15.0) 05/21/16 09:50 INR 1.01 (0.83-1.16) 05/21/16 09:50 Allergies/Adverse Reactions: No Allergies [NKDA] Allergy (Unknown, Verified 08/20/12 13:30)
--- NOTE | 2016-05-24 10:05 | NEUROPROG ---
Assessment: INTERVAL HISTORY: 05/24: Patient more awake and alert today, still confused, thinks she's in a "sports club in [place]." Denies any pain. No family at bedside. 05/23: Assuming care from Dr. Queen. No family at bedside this AM. Nursing reports relative abulic/akinetic state this AM. No events overnight. Patient nonverbal today, other than repeating "no" over and over. EXAM: VS reviewed in EMR GEN: overweight, laying in bed, in NAD HEENT: NCAT, sclera anicteric, conjunctiva not injected, MMD NECK: supple, nontender, no meningismus CV: RRR s1 s2 wo m/r/c/g. Carotid pulses 2+ wo bruit NEURO: MS: she has eyes closed, opens immediately to auditory stimulation. She is oriented to self only. Reduced attention. Displays utilization behavior. Speech nondysarthric, but hypophonic and bradykinetic. She is bradyphrenic. No language disturbance. No obvious hallucinations. CN: pupils 4mm round and reactive. Blinks to threat OU. Primary gaze centered. She has limited vertical gaze. She has saccadic intrusion with smooth pursuit and motor impersistence. Grimace and nox stim of the face. Face symmetric. Tongue protrudes midline. MOTOR: normal bulk, increased tone throughout (seems more paratonic), no adventitial movements including myoclonus, sustains antigravity in all extremities, but does not participate in formal segmental exam SENSORY: localizes to nox stim in BUEs, briskly withdraws in BLEs COORD: no ataxia with spontaneous movements - does not participate in formal exam REFLEX: plantars extensor, no clonus. She is activating, so cannot assess DTRs. She grasps and has positive glabellar tap. No excess startle response. GAIT: unable to assess due to mental status DATA REVIEW: Labs reviewed in EMR MRI brain wo personally reviewed - nonspecific subcortical T2 FLAIR hyperintensities, likely chronic microvascular in origin. IMPRESSION AND RECOMMENDATIONS: // DEMENTIA WITH RAPID PROGRESSION/DECLINE // PARKINSONISM Patient with relative rapid decline in cognition on a background of indication of dementia. Her structural exam (MRI brain) is relatively unremarkable. CSF with nonspecific proteinoracchia, but no pleocytosis. Metabolic/infectious screening labs unremarkable. CSF HSV PCR is neg, and her CSF cytology is negative for malignancy. In absence of any underlying toxic/metabolic/infectious process that could precipitate an acute delirium on dementia, it is likely she is suffering from a rapidly progressive neurodegenerative process. 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 Given the possibility of neuroleptic sensitive degenrative process, I would discontinue schedule quetiapine for now and use only on an as needed basis for agitation not responsive to behavioral interventions. Prion disease unlikely, as MRI does not reflect typical changes of such and she does not have any other typical stigmata of prion disease. Autoimmune/ dysimmune encephalitis remains on the differential. I would continue IV methylprednisolone for now - today is day 2 - will continue for 3-5 days. Her CSF autoimmune encephalitis panel is likely to take about 10 days to result (changed to CSF order in system, not cancelled as listed). Continue to await results of CSF labs, and continue supportive measures per the primary team. Exercise delirium precautions - lights on/window shade up from [phone], family at bedside, frequent reorientation, sensory optimization with hearing aids/glasses if applicable, OOB to chair or upright position in bed during daytime, nonpharmacologic sleep enhancement at night with cool/quiet/dark room. Avoid sedating/disinhibiting medications. Objective: Vital Signs Temp Pulse Resp BP Pulse Ox 36.7 C 83 14 132/80 H 93 05/24/16 09:05 05/24/16 09:05 05/24/16 09:05 05/24/16 09:05 05/24/16 09:05 Microbiology 05/21/16 12:45 Gram Stain - Final Cerebral Spinal Fluid Laboratory Results 05/24/16 05:27 05/24/16 05:27 05/23/16 05/24/16 05/25/16 05:59 05:59 05:59 Intake Total 945 20 Output Total 450 750 Balance 495 -730 PT 13.2 SEC (12.0-15.0) 05/21/16 09:50 INR 1.01 (0.83-1.16) 05/21/16 09:50 WBC 8.29 10^3/uL (3.80-9.50) 05/24/16 05:27 RBC 4.60 10^6/uL (4.18-5.33) 05/24/16 05:27 Hgb 13.8 g/dL (12.6-16.3) 05/24/16 05:27 Hct 40.3 % (38.0-47.0) 05/24/16 05:27 MCV 87.6 fL (81.5-99.8) 05/24/16 05:27 MCH 30.0 pg (27.9-34.1) 05/24/16 05:27 MCHC 34.2 g/dL (32.4-36.7) 05/24/16 05:27 RDW 12.1 % (11.5-15.2) 05/24/16 05:27 Plt Count 187 10^3/uL (150-400) 05/24/16 05:27 MPV 9.5 fL (8.7-11.7) 05/24/16 05:27 Neut % (Auto) 91.0 % (39.3-74.2) H 05/24/16 05:27 Lymph % (Auto) 6.5 % (15.0-45.0) L 05/24/16 05:27 [place] % (Auto) 1.3 % (4.5-13.0) L 05/24/16 05:27 Eos % (Auto) 0.0 % (0.6-7.6) L 05/24/16 05:27 Baso % (Auto) 0.1 % (0.3-1.7) L 05/24/16 05:27 Nucleat RBC Rel Count 0.0 % (0.0-0.2) 05/24/16 05:27 Absolute Neuts (auto) 7.54 10^3/uL (1.70-6.50) H 05/24/16 05:27 Absolute Lymphs (auto) 0.54 10^3/uL (1.00-3.00) L 05/24/16 05:27 Absolute Monos (auto) 0.11 10^3/uL (0.30-0.80) L 05/24/16 05:27 Absolute Eos (auto) 0.00 10^3/uL (0.03-0.40) L 05/24/16 05:27 Absolute Basos (auto) 0.01 10^3/uL (0.02-0.10) L 05/24/16 05:27 Absolute Nucleated RBC 0.00 10^3/uL (0-0.01) 05/24/16 05:27 Immature Gran % 1.1 % (0.0-1.1) 05/24/16 05:27 Immature Gran # 0.09 10^3/uL (0.00-0.10) 05/24/16 05:27 PT 13.2 SEC (12.0-15.0) 05/21/16 09:50 INR 1.01 (0.83-1.16) 05/21/16 09:50 Puncture Site RIGHT RADIAL 05/15/16 05:38 Patient Temperature 37.1 DEGREES 05/15/16 05:38 pCO2 44 mmHg (34-38) H 05/15/16 05:38 pO2 77 mmHg (65-75) H 05/15/16 05:38 Total CO2 28 mEq/L (23-27) H 05/15/16 05:38 ABG pH 7.39 (7.35-7.45) 05/15/16 05:38 ABG O2 Saturation 96 % (92-95) H 05/15/16 05:38 ABG Base Excess 1.5 mEq/L (-2.5-2.5) 05/15/16 05:38 Total O2 Concentration 3.0 LITERS 05/15/16 05:38 Sodium 136 mEq/L (134-144) 05/24/16 05:27 Potassium 4.1 mEq/L (3.5-5.2) 05/24/16 05:27 Chloride 103 mEq/L (97-110) 05/24/16 05:27 Carbon Dioxide 25 mEq/l (22-31) 05/24/16 05:27 Bicarbonate 26 mEq/L (22-26) 05/15/16 05:38 Anion Gap 8 mEq/L (8-16) 05/24/16 05:27 BUN 23 mg/dL (7-23) 05/24/16 05:27 Creatinine 0.7 mg/dL (0.6-1.0) 05/24/16 05:27 Estimated GFR > 60 05/24/16 05:27 Glucose 146 mg/dL (70-100) H 05/24/16 05:27 Calcium 9.8 mg/dL (8.5-10.4) 05/24/16 05:27 Total Bilirubin 0.5 mg/dL (0.1-1.4) 05/24/16 05:27 Conjugated Bilirubin REJ 05/12/16 05:00 Unconjugated Bilirubin REJ 05/12/16 05:00 AST 29 IU/L (14-46) 05/24/16 05:27 ALT 42 IU/L (9-52) 05/24/16 05:27 Alkaline Phosphatase 105 IU/L (38-126) 05/24/16 05:27 Total Protein 6.7 g/dL (6.3-8.2) 05/24/16 05:27 Albumin 3.3 g/dL (3.5-5.0) L 05/24/16 05:27 Triglycerides 188 mg/dL (35-135) H 05/19/16 05:38 Cholesterol 186 mg/dL (140-220) 05/19/16 05:38 Cholesterol Risk Factr 0.8 (0.2-1.0) 05/19/16 05:38 LDL Cholesterol, Calc 97 mg/dL (80-100) 05/19/16 05:38 LDL Risk Factor 0.6 (0.2-1.0) 05/19/16 05:38 VLDL Cholesterol 37 mg/dL (8-25) H 05/19/16 05:38 Non-HDL Cholesterol 134 mg/dL (90-129) H 05/19/16 05:38 HDL Cholesterol 52 mg/dL (40-85) 05/19/16 05:38 LDL/HDL Ratio 1.87 RATIO (1.00-3.22) 05/19/16 05:38 Cholesterol/HDL Ratio 3.58 RATIO (1.00-4.44) 05/19/16 05:38 Lipase REJ 05/12/16 05:00 Vitamin B12 978 pg/mL (239-931) H 05/21/16 05:55 Folate > 20.00 ng/mL (2.80 - >20.00) 05/21/16 05:55 TSH 1.490 uIU/mL (0.465-4.680) 05/12/16 09:24 Urine Color YELLOW 05/14/16 10:04 Urine Appearance HAZY 05/14/16 10:04 Urine pH 5.0 (5.0-7.5) 05/14/16 10:04 Ur Specific [place] 1.019 (1.002-1.030) 05/14/16 10:04 Urine Protein 1+ (NEGATIVE) H 05/14/16 10:04 Urine Ketones TRACE (NEGATIVE) H 05/14/16 10:04 Urine Blood NEGATIVE (NEGATIVE) 05/14/16 10:04 Urine Nitrate NEGATIVE (NEGATIVE) 05/14/16 10:04 Urine Bilirubin NEGATIVE (NEGATIVE) 05/14/16 10:04 Urine Urobilinogen NEGATIVE EU (0.2-1.0) 05/14/16 10:04 Ur Leukocyte Esterase NEGATIVE (NEGATIVE) 05/14/16 10:04 Urine RBC 1-3 /hpf (0-3) 05/14/16 10:04 Urine WBC 1-3 /hpf (0-3) 05/14/16 10:04 Ur Epithelial Cells TRACE /lpf (NONE-1+) 05/14/16 10:04 Urine Bacteria TRACE /hpf (NONE SEEN) H 05/12/16 17:00 Hyaline Casts 5-15 /lpf (0-1) 05/14/16 10:04 Urine Mucus 4+ /lpf (NONE-1+) H 05/14/16 10:04 Urine Glucose NEGATIVE (NEGATIVE) 05/14/16 10:04 CSF Tube Number 1 05/21/16 12:45 CSF Appearance CLEAR (CLEAR) 05/21/16 12:45 CSF Color COLORLESS (COLORLESS) 05/21/16 12:45 CSF Supernatant COLORLESS (COLORLESS) 05/21/16 12:45 CSF WBC 2 /mm3 (0-5) 05/21/16 12:45 CSF RBC 105 /mm3 (0-0) H 05/21/16 12:45 CSF Glucose 55 mg/dL (50-75) 05/21/16 12:45 CSF Total Protein 77 mg/dL (12-60) H 05/21/16 12:45 CSF Albumin Cancelled 05/21/16 12:45 CSF IgG Cancelled 05/21/16 12:45 Serum IgG Cancelled 05/21/16 12:45 Serum Albumin Cancelled 05/21/16 12:45 Serum IgG/Albumin Cancelled 05/21/16 12:45 CSF IgG/Albumin Cancelled 05/21/16 12:45 CSF IgG Index Cancelled 05/21/16 12:45 Ser Oligoclonal Bands Cancelled 05/21/16 12:45 CSF Oligoclonal Bands Cancelled 05/21/16 12:45 Oligoclonal Band Interp Cancelled 05/21/16 12:45 IgG Synthesis Rate Cancelled 05/21/16 12:45 Paraneoplastic Interp Cancelled 05/20/16 12:45 Neuronal Nuc Ab Type 1 Cancelled 05/20/16 12:45 Neuronal Nuc Ab Type 2 Cancelled 05/20/16 12:45 Neuronal Nuc Ab Type 3 Cancelled 05/20/16 12:45 AGNA-1 Cancelled 05/20/16 12:45 AChR Ganglion Neuronal Cancelled 05/20/16 12:45 Anti-Purkinje Ab Titer Cancelled 05/20/16 12:45 Purkinje Cell (WASHING MACHINE STRIPER-2) Cancelled 05/20/16 12:45 Purkinje Cytoplas Typ Tr Cancelled 05/20/16 12:45 CRMP-5 IgG Antibody Cancelled 05/20/16 12:45 Amphiphysin Antibody Cancelled 05/20/16 12:45 Ca Channel Bind Ab - N Cancelled 05/20/16 12:45 Ca Channel Bind Ab P/Q Cancelled 05/20/16 12:45 Volt-Williams K Channel Ab Cancelled 05/20/16 12:45 Striated Musc Total Ab Cancelled 05/20/16 12:45 Acetylchol Rcpt Bind Ab Cancelled 05/20/16 12:45 HSV Source Description Not Reported 05/21/16 12:45 HSV I DNA PCR TNP 05/21/16 12:45 HSV II DNA PCR Not Reported 05/21/16 12:45 Cytology RECEIVED 05/21/16 12:45 Miscellaneous Test See Comments (()) 05/21/16 12:45 Allergies/Adverse Reactions: No Allergies [NKDA] Allergy (Unknown, Verified 08/20/12 13:30)
[2016-05-24] MEDS: LISINOPRIL/HCTZ 20/12.5MG 1 EA TAB PO SCH (10:39)
[2016-05-24] MEDS: PANTOPRAZOLE SODIUM 40 MG TAB PO SCH (10:39)
[2016-05-24] MEDS: methylPREDNISolone SOD SUCC 1 GM in D5W 100 ML IV SCH (10:42)
[2016-05-24] MEDS: QUEtiapine FUMARATE 25 MG TAB PO SCH (10:48)
[2016-05-24 11:14] LABS: ALBUMIN SERUM 3930 mg/dL; CSF IGG INDEX 0.59 (<=0.85); IGG CSF 3.5 mg/dL (<=8.1); IGG SERUM 658 mg/dL (767 - 1590); IGG/ALBUMIN SERUM 0.17 (<=0.40); INTERPRETATION 0 bands (<4); OLIGOCLONAL BANDING CSF 0 bands; OLIGOCLONAL BANDING SERUM 0 bands; SYNTHESIS RATE 3.62 mg/24 h (<=12)
[2016-05-24] MEDS: ONDANSETRON 4 MG/2 ML VIAL IVP PRN (11:56)
--- NOTE | 2016-05-24 14:20 | HOSPPROG ---
Hospitalist Progress Note Assessment/Plan: # Rapidly progressive dementia with behavioral disturbance - DDx frontotemporal dementia, Lewy body, autoimmune encephalitis vs. prion disease). MRI head ( personally reviewed and interpreted) neg for CVA. She has had an abrupt decline over past few weeks- She was on multiple sedating medications (Xanax, Gabapentin), all of which have been held. LP done 05/21 with broad workup to r/o treatable causes of rapid cognitive decline- pending - B12 and folate -wnl Patient more conversant this am - remains A&O x0 however - cont high-dose IV steroids (to treat possible autoimmune causes) - cont aricept # acute intermittent Agitation -stable in past 48 hours- unclear if related to pain- oxygen saturations 93% on 3 L - cont po roxanol - cont Seroquel. # LUE swelling - IV infiltrated- RUE u/s negative for DVT - cont to monitor # Failure to thrive / weakness - not ambulatory, requiring lift # Ground level fall prompting admission - pt suffered left ankle sprain, no head injury reported. # Neuropathy - gabapentin held due to concern for oversedation # Hypoxemic respiratory failure - suspect atelectasis- WBC 8.2 this morning # Full code # DVT PPLX - RAY # Dispo - cont inpt while awaiting neuro workup. Will need SNF vs LTAC / memory care. CM involved. I have discussed the case with the RN- we will continue high-dose steroids in hopes of continue continued consistent improvement Subjective: denies pain Objective: Vital Signs Temp Pulse Resp BP Pulse Ox 36.7 C 83 14 132/80 H 93 05/24/16 09:05 05/24/16 09:05 05/24/16 09:05 05/24/16 09:05 05/24/16 09:05 Microbiology 05/21/16 12:45 Gram Stain - Final Cerebral Spinal Fluid CSF Culture - Final Laboratory Results 05/24/16 05:27 05/24/16 05:27 05/23/16 05/24/16 05/25/16 05:59 05:59 05:59 Intake Total 945 20 Output Total 450 750 Balance 495 -730 PT 13.2 SEC (12.0-15.0) 05/21/16 09:50 INR 1.01 (0.83-1.16) 05/21/16 09:50 - Physical Exam Constitutional: chronically ill appearing Eyes: anicteric sclera Ears, Nose, Mouth, Throat: moist mucous membranes Cardiovascular: regular rate and rhythym Respiratory: no respiratory distress, no rales or rhonchi, reduced air movement Gastrointestinal: normoactive bowel sounds, soft, non-tender abdomen Genitourinary: no bladder fullness Skin: warm, normal color Musculoskeletal: No asymmetric calves Neurologic: No AAOx3 Psychiatric: No interacting appropriately Lymph, Heme, Immunologic: no cervical LAD ICD10 Worksheet Patient Problems: Problems Problem Status Onset Palliative care encounter Acute Lower limb nerve lesion Active Multiple myeloma in remission Active Back pain Acute Decubital ulcer Acute Knee pain, acute Acute Yeast infection involving the vagina and surrounding area Acute GERD (gastroesophageal reflux disease) Chronic Hypertension Chronic
[2016-05-24] MEDS: D5W 1/2 NS W/ 20 KCl/L 1,000 ML IV SCH (14:25)
--- NOTE | 2016-05-24 15:40 | PDPCPN ---
Palliative Care Progress Note Assessment/Plan: HPI: Bridgett King is a 76 yo female with PMH HTN, Asthma, multiple myeloma in remission, dementia, chronic pain, and chronic disability admitted to the hospital for increasing confusion and inability to care for herself at home. Found to have severe incontinence related dermatitis and acute confusion without known cause. Patient and are familiar to me as she was seen at home for routine care September 2015. At that time patient dementia was mild and able to care for herself with the help of her . She was mostly wheelchair bound at that point due to chronic pain in her shoulders.Palliative care consulted for complex medical decision making. Bridgett seen this afternoon without family present. She was more awake and alert today. She stated she did not know why she was in the hospital but stated "I remember bill going through this". When asked what she meant she stated "not getting better in the hospital". She said her hope was to be able to communicate better. She was confused still also talking about pudding but seemed at times to have slight insight as to what has been happening. Denied any pain or SOB. Feels she is doing ok otherwise. Assessment: Physical: - Pain: chronic neuropathy from breast cancer treatment. Chronic bilateral shoulder pain - on scheduled gabapentin and Celebrex - roxanol PRN for any increased pain - weakness - PT/OT on consult Emotional/psychological: Confusion: acute on chronic. Significant decline from baseline - haldol PRN is best choice for any agitation Advanced Care Planning: Is patient decisional?: No Code Status: Full MD POA: is decision maker, though no MDPOA on file Plan:Ongoing discussions of goals of care as needed. Rehab planned at discharge Subjective: I'm doing ok i think Objective: Vital Signs Temp Pulse Resp BP Pulse Ox 36.9 C 76 16 155/74 H 97 05/24/16 15:34 05/24/16 15:34 05/24/16 15:34 05/24/16 15:34 05/24/16 15:34 Microbiology 05/21/16 12:45 Gram Stain - Final Cerebral Spinal Fluid CSF Culture - Final Laboratory Results 05/24/16 05:27 05/24/16 05:27 05/23/16 05/24/16 05/25/16 05:59 05:59 05:59 Intake Total 945 20 Output Total 450 750 Balance 495 -730 PT 13.2 SEC (12.0-15.0) 05/21/16 09:50 INR 1.01 (0.83-1.16) 05/21/16 09:50 Physical Exam - Physical Exam General Appearance: alert, no apparent distress Respiratory: No respiratory distress, No accessory muscle use Skin: normal color, warm/dry Extremities: pedal edema Neuro/Psych: alert, disoriented to place, disoriented to time ICD10 Worksheet Patient Problems: Problems Problem Status Onset Palliative care encounter Acute Lower limb nerve lesion Active Multiple myeloma in remission Active Back pain Acute Decubital ulcer Acute Knee pain, acute Acute Yeast infection involving the vagina and surrounding area Acute GERD (gastroesophageal reflux disease) Chronic Hypertension Chronic - ICD10 Problem Qualifiers (1) Palliative care encounter
[2016-05-24] MEDS: MONTELUKAST SODIUM 10 MG TAB PO SCH (18:13)
[2016-05-24] MEDS: DONEPEZIL HCL 5 MG TAB PO SCH (21:51)
[2016-05-25] MEDS: D5W 1/2 NS W/ 20 KCl/L 1,000 ML IV SCH ×3 (00:32→21:30)
[2016-05-25] MEDS: QUEtiapine FUMARATE 25 MG TAB PO PRN (01:39)
[2016-05-25] MEDS: morphINE 10 MG/0.5 ML UDSYR PO PRN (04:20)
[2016-05-25] MEDS: HEPARIN 5,000 UNIT/0.5 ML SYR SC SCH ×3 (05:54→22:23)
[2016-05-25 08:08] LABS: ANION GAP 6 mEq/L (8-16); CALCIUM 10.2 mg/dL (8.5-10.4); CARBON DIOXIDE 30 mEq/l (22-31); CHLORIDE 101 mEq/L (97-110); CREATININE 0.7 mg/dL (0.6-1.0); GLOMERULAR FILTRATION RATE > 60; GLUCOSE 129 mg/dL (70-100); POTASSIUM 4.2 mEq/L (3.5-5.2); SODIUM 137 mEq/L (134-144)
[2016-05-25] MEDS: LISINOPRIL/HCTZ 20/12.5MG 1 EA TAB PO SCH (08:22)
[2016-05-25] MEDS: PANTOPRAZOLE SODIUM 40 MG TAB PO SCH (08:23)
[2016-05-25] MEDS: methylPREDNISolone SOD SUCC 1 GM in D5W 100 ML IV SCH (09:17)
--- NOTE | 2016-05-25 15:53 | HOSPPROG ---
Hospitalist Progress Note Assessment/Plan: # Rapidly progressive dementia with behavioral disturbance - DDx frontotemporal dementia, Lewy body, autoimmune encephalitis vs. prion disease). MRI head -neg for CVA. She has had an abrupt decline over past few weeks- She was on multiple sedating medications (Xanax, Gabapentin), all of which have been held. LP done 05/21 with broad workup to r/o treatable causes of rapid cognitive decline- cytology negative for malignancy - B12 and folate -wnl patient remains A&O x0 - no discernible improvement in the past 24 hours - cont high-dose IV steroids (to treat possible autoimmune causes) today #3/5 - cont aricept # acute intermittent Agitation -stable in past 48 hours- unclear if related to pain- - cont po roxanol - cont Seroquel. # LUE swelling - IV infiltrated- RUE u/s negative for DVT - cont to monitor # Failure to thrive / weakness - not ambulatory, requiring lift # Ground level fall prompting admission - pt suffered left ankle sprain, no head injury reported. # Neuropathy - gabapentin held due to concern for oversedation # Hypoxemic respiratory failure - suspect atelectasis- oxygen saturations 93% on 3 L chest x-ray ( personally reviewed and interpreted) WBC 8.2 # Full code # DVT PPLX - RAY # Dispo - cont inpt while awaiting neuro workup. Will need SNF vs LTAC / memory care. CM involved. I have discussed the case with the RN- patient would require 4 person assist for mobilization- seems unmotivated and unable to coordinate with instruction Subjective: denies pain Objective: Vital Signs Temp Pulse Resp BP Pulse Ox 36.5 C 76 16 171/88 H 93 05/25/16 07:49 05/25/16 07:49 05/25/16 07:49 05/25/16 07:49 05/25/16 07:49 Microbiology 05/21/16 12:45 Gram Stain - Final Cerebral Spinal Fluid CSF Culture - Final Laboratory Results 05/24/16 05:27 05/25/16 07:30 05/24/16 05/25/16 05/26/16 05:59 05:59 05:59 Intake Total 20 2468 Output Total 750 1900 660 Balance -730 568 -660 PT 13.2 SEC (12.0-15.0) 05/21/16 09:50 INR 1.01 (0.83-1.16) 05/21/16 09:50 - Physical Exam Constitutional: chronically ill appearing Eyes: anicteric sclera Ears, Nose, Mouth, Throat: dry mucous membranes Cardiovascular: regular rate and rhythym, systolic murmur Respiratory: no respiratory distress, reduced air movement Gastrointestinal: normoactive bowel sounds, soft, non-tender abdomen Genitourinary: no bladder fullness Skin: warm, normal color Musculoskeletal: No asymmetric calves Neurologic: No AAOx3 Psychiatric: No agitated Lymph, Heme, Immunologic: no cervical LAD ICD10 Worksheet Patient Problems: Problems Problem Status Onset Palliative care encounter Acute Lower limb nerve lesion Active Multiple myeloma in remission Active Back pain Acute Decubital ulcer Acute Knee pain, acute Acute Yeast infection involving the vagina and surrounding area Acute GERD (gastroesophageal reflux disease) Chronic Hypertension Chronic
--- NOTE | 2016-05-25 16:21 | WOCRNPDOC ---
WOCRN Advanced Assessment Note - Skin Integrity Problem, Advanced Assess Bilateral Breast Dressing Type: Interdry Dressing Description: Clean/Dry Exudate Amount: None Exudate Characteristic(s): None Josefina Wound Tissue: Intact Josefina Wound Swelling: None Wound Bed Color: Red Skin Integrity Problem Comment: Intertriginous dermatitis under both breasts is almost completely healed. No linear, shallow wounds noted, and only mild redness remains under R breast. Continue w/ Interdry sheets to manage moisture/ friction. Generalized Buttock Incont Assoc Dermatitis Dressing Type: Allevyn Life Dressing Description: Intact Exudate Amount: None Exudate Characteristic(s): None Integumentary Issue Intervention: Visualized Under Dressing Josefina Wound Tissue: Blanching, Erythema, Raw Josefina Wound Swelling: Mild Wound Bed Color: Red Skin Integrity Problem Comment: Healing, epithelializing satellite lesions noted on both R and L buttocks, improved since previous assessment. Josefina-wound skin continues to be fragile, raw, and vulnerable to friction injury. Advised tugboat captain Naomi to continue w/ current tx, off-loading patient's buttocks and turning q 2. Bilateral Groin Incont Assoc Dermatitis Dressing Type: Interdry Dressing Description: Clean/Dry Exudate Amount: None Exudate Characteristic(s): None Skin Integrity Problem Comment: Site almost completely healed. Previously, there were papule-like lesions scattered densely throughout groin folds. Those raised, red areas are now flat and fading to a pale brown. Continue w/ Interdry sheets tucked into folds.
[2016-05-25] MEDS: MONTELUKAST SODIUM 10 MG TAB PO SCH (18:43)
[2016-05-25] MEDS: DONEPEZIL HCL 5 MG TAB PO SCH (22:23)
[2016-05-26] MEDS: QUEtiapine FUMARATE 25 MG TAB PO PRN (00:11)
[2016-05-26] MEDS: morphINE 10 MG/0.5 ML UDSYR PO PRN (00:55)
[2016-05-26 04:11] LABS: MISCELLANEOUS TEST See Comments (())
[2016-05-26 04:17] LABS: AMPHIPHYSEN AB Negative titer (<1:240); ANTI NEURONAL NUCLEAR AB TYPE3 Negative titer (<1:240); NEURONAL (V-G) K+ CHANNEL AB 0 nmol/L (<=0.02); PURKINJE CELL CYTOPLASMIC ABTR Negative titer (<1:240); PURKINJE CELL CYTOPLASMIC TY 2 Negative titer (<1:240); REFLEX ADDED None.; STRIATED MUSCLE ANTIBODIES Negative titer (<1:120)
[2016-05-26] MEDS: HEPARIN 5,000 UNIT/0.5 ML SYR SC SCH ×3 (04:48→20:24)
[2016-05-26] MEDS: D5W 1/2 NS W/ 20 KCl/L 1,000 ML IV SCH (04:49)
[2016-05-26 05:16] LABS: HEMATOCRIT 42.1 % (38.0-47.0); HEMOGLOBIN 14.4 g/dL (12.6-16.3); MEAN CELL HEMOGLOBIN 29.3 pg (27.9-34.1); MEAN CELL HEMOGLOBIN CONCENTR. 34.2 g/dL (32.4-36.7); MEAN CELL VOLUME 85.6 fL (81.5-99.8); RED BLOOD CELL COUNT 4.92 10^6/uL (4.18-5.33); RED CELL DISTRIBUTION WIDTH 12.1 % (11.5-15.2)
[2016-05-26] MEDS: PANTOPRAZOLE SODIUM 40 MG TAB PO SCH (08:18)
[2016-05-26] MEDS: methylPREDNISolone SOD SUCC 1 GM in D5W 100 ML IV SCH (08:18)
[2016-05-26] MEDS: LISINOPRIL/HCTZ 20/12.5MG 1 EA TAB PO SCH (08:18)
[2016-05-26] MEDS: ONDANSETRON 4 MG/2 ML VIAL IVP PRN (08:33)
--- NOTE | 2016-05-26 08:46 | HOSPPROG ---
Hospitalist Progress Note Assessment/Plan: #Rapidly progressive dementia -paraneoplastic panel negative. -plan for 3-5 days IV steroids. Appreciate neuro recs -avoid sedative meds (ie. Benzos, etc) #Agitation: cont Seroquel #LUE swelling: negative for DVT #FTT: due to dementia #Neuropathy: hold Neurontin with oversedation #Mild leukocytosis: afebrile. Due to steroids #Acute hypoxic resp failure: due to atelectasis #Breast/incontinence dermatitis: wound care following #Diet: regular #DVT ppx: [facility] #Disp: LTAC vs. SNF once medically clear Subjective: denies pain to me Objective: Vital Signs Temp Pulse Resp BP Pulse Ox 36.3 C 71 17 169/93 H 96 05/26/16 07:52 05/26/16 07:52 05/26/16 07:52 05/26/16 08:18 05/26/16 08:15 Laboratory Results 05/26/16 05:00 05/25/16 07:30 05/25/16 05/26/16 05/27/16 05:59 05:59 05:59 Intake Total 2468 2325 Output Total 1900 2360 Balance 568 -35 PT 13.2 SEC (12.0-15.0) 05/21/16 09:50 INR 1.01 (0.83-1.16) 05/21/16 09:50 - Physical Exam Constitutional: chronically ill appearing, other (patient refused most of physical exam) Eyes: PERRL Ears, Nose, Mouth, Throat: moist mucous membranes Cardiovascular: regular rate and rhythym Neurologic: other (alert to self) Psychiatric: anxious ICD10 Worksheet Patient Problems: Problems Problem Status Onset Palliative care encounter Acute Lower limb nerve lesion Active Multiple myeloma in remission Active Back pain Acute Decubital ulcer Acute Knee pain, acute Acute Yeast infection involving the vagina and surrounding area Acute GERD (gastroesophageal reflux disease) Chronic Hypertension Chronic
--- NOTE | 2016-05-26 16:48 | NEUROPROG ---
Assessment: 1. cognitive disorder NOS I reviewed the extensive neurologic records including MRI brain, CSF and paraneoplastic results. Patient had a non inflammatory CSF. Paraneoplastic antibody panel was negative. She is on day 4/5 of IV Solu-Medrol without sustained improvement. Query atypical neurodegenerative process versus protracted atypical medication effect. plan - we will finish steroid course and plan on discharging to SNF. I added TPO antibodies to her workup she can follow up with Dr. Queen as an outpatient. Certainly, Dr. Queen and family could consider subspecialty consultation at the [facility] if indicated. Subjective: No definite improvement on IV steroids Objective: Vital Signs Temp Pulse Resp BP Pulse Ox 36.3 C 55 L 17 164/83 H 94 05/26/16 16:00 05/26/16 16:00 05/26/16 16:00 05/26/16 16:00 05/26/16 16:00 Laboratory Results 05/26/16 05:00 05/25/16 07:30 05/25/16 05/26/16 05/27/16 05:59 05:59 05:59 Intake Total 2468 2325 Output Total 1900 2360 700 Balance 568 -35 -700 PT 13.2 SEC (12.0-15.0) 05/21/16 09:50 INR 1.01 (0.83-1.16) 05/21/16 09:50 patient is awake and alert, she thought the year was 2001. She did not know the president. Allergies/Adverse Reactions: No Allergies [NKDA] Allergy (Unknown, Verified 08/20/12 13:30)
[2016-05-26] MEDS: MONTELUKAST SODIUM 10 MG TAB PO SCH (18:13)
[2016-05-26] MEDS: DONEPEZIL HCL 5 MG TAB PO SCH (20:24)
[2016-05-27] MEDS: D5W 1/2 NS W/ 20 KCl/L 1,000 ML IV SCH ×3 (01:12→22:31)
[2016-05-27] MEDS: HEPARIN 5,000 UNIT/0.5 ML SYR SC SCH ×3 (06:07→21:05)
[2016-05-27] MEDS: LISINOPRIL/HCTZ 20/12.5MG 1 EA TAB PO SCH (08:43)
[2016-05-27] MEDS: PANTOPRAZOLE SODIUM 40 MG TAB PO SCH (08:44)
[2016-05-27] MEDS: methylPREDNISolone SOD SUCC 1 GM in D5W 100 ML IV SCH (08:46)
--- NOTE | 2016-05-27 11:36 | NEUROPROG ---
Assessment: I spoke with the patient and her . He feels she is much better today and she has just completed 5 days of steroids. I will have Dr. Deras check on her tomorrow to see how she is doing. Long-term plans and f/u can be determined at that time. Objective: Vital Signs Temp Pulse Resp BP Pulse Ox 36.7 C 86 18 159/93 H 923 H 05/27/16 07:51 05/27/16 07:51 05/27/16 07:51 05/27/16 07:51 05/27/16 07:51 Laboratory Results 05/26/16 05:00 05/25/16 07:30 05/26/16 05/27/16 05/28/16 05:59 05:59 05:59 Intake Total 2325 1400 Output Total 2360 2225 Balance -35 -825 PT 13.2 SEC (12.0-15.0) 05/21/16 09:50 INR 1.01 (0.83-1.16) 05/21/16 09:50 Allergies/Adverse Reactions: No Allergies [NKDA] Allergy (Unknown, Verified 08/20/12 13:30)
--- NOTE | 2016-05-27 15:27 | HOSPPROG ---
Hospitalist Progress Note Assessment/Plan: #Rapidly progressive dementia: improvement in mental status and mobility today. -paraneoplastic panel negative. Completed 5 day IV Solumedrol. Appreciate neuro consultation to assist in next steps -avoid sedative meds (ie. Benzos, etc) #Agitation: cont Seroquel #LUE swelling: negative for DVT #FTT: due to dementia #Neuropathy: hold Neurontin with oversedation #Mild leukocytosis: afebrile. Due to steroids #Acute hypoxic resp failure: due to atelectasis #Breast/incontinence dermatitis: wound care following #Diet: regular #DVT ppx: [facility] #Disp: LTAC vs. SNF once medically clear Subjective: walked with PT today Objective: Vital Signs Temp Pulse Resp BP Pulse Ox 36.7 C 86 18 159/93 H 97 05/27/16 07:51 05/27/16 07:51 05/27/16 07:51 05/27/16 07:51 05/27/16 09:55 Laboratory Results 05/26/16 05:00 05/25/16 07:30 05/26/16 05/27/16 05/28/16 05:59 05:59 05:59 Intake Total 2325 1400 Output Total 2360 2225 Balance -35 -825 PT 13.2 SEC (12.0-15.0) 05/21/16 09:50 INR 1.01 (0.83-1.16) 05/21/16 09:50 - Physical Exam Constitutional: other (appears brighter today, sitting in chair) Eyes: PERRL Ears, Nose, Mouth, Throat: moist mucous membranes Cardiovascular: regular rate and rhythym, no murmur, rub, or gallop Respiratory: no respiratory distress Gastrointestinal: normoactive bowel sounds Genitourinary: no bladder fullness Skin: warm Musculoskeletal: full muscle strength Neurologic: CN II-XII Intact, other (alert to self, year, month, not place/date) Psychiatric: anxious ICD10 Worksheet Patient Problems: Problems Problem Status Onset Palliative care encounter Acute Lower limb nerve lesion Active Multiple myeloma in remission Active Back pain Acute Decubital ulcer Acute Knee pain, acute Acute Yeast infection involving the vagina and surrounding area Acute GERD (gastroesophageal reflux disease) Chronic Hypertension Chronic
[2016-05-27 15:45] LABS: HEMATOCRIT 43.9 % (38.0-47.0); HEMOGLOBIN 14.9 g/dL (12.6-16.3); MEAN CELL HEMOGLOBIN 28.8 pg (27.9-34.1); MEAN CELL HEMOGLOBIN CONCENTR. 33.9 g/dL (32.4-36.7); MEAN CELL VOLUME 84.7 fL (81.5-99.8); RED BLOOD CELL COUNT 5.18 10^6/uL (4.18-5.33); RED CELL DISTRIBUTION WIDTH 12.1 % (11.5-15.2)
[2016-05-27] MEDS: MONTELUKAST SODIUM 10 MG TAB PO SCH (18:38)
[2016-05-27] MEDS: QUEtiapine FUMARATE 25 MG TAB PO PRN (21:05)
[2016-05-27] MEDS: DONEPEZIL HCL 5 MG TAB PO SCH (21:05)
[2016-05-27] MEDS: ACETAMINOPHEN 500 MG TAB PO PRN (21:05)
[2016-05-27] MEDS ORDERED: morphINE 10 MG/0.5 ML UDSYR ONE (21:22)
[2016-05-27] MEDS: morphINE 10 MG/0.5 ML UDSYR PO PRN (21:26)
[2016-05-28] MEDS: morphINE 10 MG/0.5 ML UDSYR PO PRN (00:33)
[2016-05-28] MEDS: HEPARIN 5,000 UNIT/0.5 ML SYR SC SCH ×3 (05:50→21:26)
[2016-05-28 06:59] LABS: ANION GAP 4 mEq/L (8-16); CALCIUM 9.3 mg/dL (8.5-10.4); CARBON DIOXIDE 31 mEq/l (22-31); CHLORIDE 100 mEq/L (97-110); CREATININE 0.7 mg/dL (0.6-1.0); GLOMERULAR FILTRATION RATE > 60; GLUCOSE 106 mg/dL (70-100); SODIUM 135 mEq/L (134-144)
[2016-05-28] MEDS: LISINOPRIL/HCTZ 20/12.5MG 1 EA TAB PO SCH (08:27)
[2016-05-28] MEDS: PANTOPRAZOLE SODIUM 40 MG TAB PO SCH (08:28)
--- NOTE | 2016-05-28 09:23 | NEUROPROG ---
Assessment: // RAPIDLY PROGRESSIVE DEMENTIA Patient much improved over the course of her hospitalization. No family at bedside today. She completed 5 days of methylprednisolone IV. Temproally, she seemed to improve with the steroids, but there has been no indication of autoimmunity on her workup. Question if this was just coincidental with natural fluctuating course of a neurodegenerative process, like alpha- synucleinopathy/Lewy body process, particularly given her parkinsonism. Her CSF was noninfectious with a nonspecific elevation in protein. Systemic and CSF infectious/metabolic/autoimmune/PNP workup negative. Her MRI was unremarkable for anything culprit or acute. Still differential of neurodegenerative process, protracted sedative/ psychoactive medication effect, likely both. At this point, would continue with supportive measures, avoid sedating/ disinhibiting medications, exercise delirium precautions. No further neurologic workup from an inpatient perspective. She can be discharged to a SNF and followup with Dr. Queen or behavioral neurology clinic. Will sign off. Please recall PRN. 25 mins in direct patient care activities on the floor. Case was discussed with nursing. Objective: Vital Signs Temp Pulse Resp BP Pulse Ox 36.5 C 68 18 178/100 H 95 05/28/16 07:40 05/28/16 07:40 05/28/16 07:40 05/28/16 08:27 05/28/16 07:40 Laboratory Results 05/27/16 15:30 05/28/16 06:00 05/27/16 05/28/16 05/29/16 05:59 05:59 05:59 Intake Total 1400 2462 2036 Output Total 2225 3250 Balance -825 -788 2036 PT 13.2 SEC (12.0-15.0) 05/21/16 09:50 INR 1.01 (0.83-1.16) 05/21/16 09:50 Allergies/Adverse Reactions: No Allergies [NKDA] Allergy (Unknown, Verified 08/20/12 13:30)
[2016-05-28] MEDS: D5W 1/2 NS W/ 20 KCl/L 1,000 ML IV SCH (12:18)
--- NOTE | 2016-05-28 13:51 | HOSPPROG ---
Hospitalist Progress Note Assessment/Plan: #Rapidly progressive dementia: improvement in mental status and mobility today. -paraneoplastic panel negative. Completed 5 day IV Solumedrol. FU neurology outpatient -avoid sedative meds (ie. Benzos, etc) #Agitation: cont Seroquel #LUE swelling: negative for DVT #FTT: due to dementia #Neuropathy: hold Neurontin with oversedation #Mild leukocytosis: afebrile. Due to steroids #Acute hypoxic resp failure: due to atelectasis #Breast/incontinence dermatitis: wound care following #Diet: regular #DVT ppx: [facility] #Disp: awaiting SNF acceptance Subjective: more conversive today Objective: Vital Signs Temp Pulse Resp BP Pulse Ox 36.5 C 68 18 178/100 H 95 05/28/16 07:40 05/28/16 07:40 05/28/16 07:40 05/28/16 08:27 05/28/16 07:40 Laboratory Results 05/27/16 15:30 05/28/16 06:00 05/27/16 05/28/16 05/29/16 05:59 05:59 05:59 Intake Total 1400 2462 2036 Output Total 2225 3250 Balance -825 -788 2036 PT 13.2 SEC (12.0-15.0) 05/21/16 09:50 INR 1.01 (0.83-1.16) 05/21/16 09:50 - Physical Exam Constitutional: no apparent distress Eyes: PERRL Ears, Nose, Mouth, Throat: moist mucous membranes Cardiovascular: regular rate and rhythym, no murmur, rub, or gallop Respiratory: no respiratory distress, no rales or rhonchi Gastrointestinal: normoactive bowel sounds Genitourinary: no bladder fullness Skin: warm Musculoskeletal: full muscle strength Neurologic: other (alert to self, place) Psychiatric: poor memory ICD10 Worksheet Patient Problems: Problems Problem Status Onset Palliative care encounter Acute Lower limb nerve lesion Active Multiple myeloma in remission Active Back pain Acute Decubital ulcer Acute Knee pain, acute Acute Yeast infection involving the vagina and surrounding area Acute GERD (gastroesophageal reflux disease) Chronic Hypertension Chronic
[2016-05-28] MEDS: MONTELUKAST SODIUM 10 MG TAB PO SCH (18:19)
[2016-05-28] MEDS: DONEPEZIL HCL 5 MG TAB PO SCH (21:26)
[2016-05-29] MEDS: HEPARIN 5,000 UNIT/0.5 ML SYR SC SCH ×3 (05:24→20:57)
[2016-05-29] MEDS: PANTOPRAZOLE SODIUM 40 MG TAB PO SCH (08:19)
[2016-05-29] MEDS: LISINOPRIL/HCTZ 20/12.5MG 1 EA TAB PO SCH (08:19)
[2016-05-29] MEDS: ACETAMINOPHEN 500 MG TAB PO PRN (08:29)
--- NOTE | 2016-05-29 08:35 | HOSPPROG ---
Hospitalist Progress Note Assessment/Plan: #Rapidly progressive dementia: improvement in mental status and mobility -paraneoplastic panel negative. Completed 5 day IV Solumedrol. UMBERTO Queen -avoid sedative meds (ie. Benzos, etc) #Mild cough: afebrile, but will check CXR #Agitation: cont Seroquel #LUE swelling: negative for DVT #FTT: due to dementia #Neuropathy: hold Neurontin with oversedation #Mild leukocytosis: afebrile. Due to steroids #Acute hypoxic resp failure: due to atelectasis #Breast/incontinence dermatitis: wound care following #Deconditioning: out of bed with PT today #Diet: regular #DVT ppx: [facility] #Disp: awaiting insurance approval for SNF acceptance; likely DC Monday Subjective: mild cough this mo Objective: Vital Signs Temp Pulse Resp BP Pulse Ox 36.4 C 67 18 175/87 H 98 05/29/16 07:41 05/29/16 07:41 05/29/16 07:41 05/29/16 08:19 05/29/16 07:41 Laboratory Results 05/27/16 15:30 05/28/16 06:00 05/28/16 05/29/16 05/30/16 05:59 05:59 05:59 Intake Total 2462 3043 Output Total 3250 2000 Balance -788 1043 PT 13.2 SEC (12.0-15.0) 05/21/16 09:50 INR 1.01 (0.83-1.16) 05/21/16 09:50 - Physical Exam Constitutional: no apparent distress, chronically ill appearing Eyes: PERRL Ears, Nose, Mouth, Throat: moist mucous membranes Cardiovascular: regular rate and rhythym Respiratory: rhonchi Gastrointestinal: normoactive bowel sounds Genitourinary: no bladder fullness Skin: warm Musculoskeletal: generalized weakness Neurologic: AAOx3 (alert to self ) Psychiatric: interacting appropriately ICD10 Worksheet Patient Problems: Problems Problem Status Onset Palliative care encounter Acute Lower limb nerve lesion Active Multiple myeloma in remission Active Back pain Acute Decubital ulcer Acute Knee pain, acute Acute Yeast infection involving the vagina and surrounding area Acute GERD (gastroesophageal reflux disease) Chronic Hypertension Chronic
[2016-05-29] MEDS: METHYL SALICYLATE/MENTHOL OINTMENT TP PRN (13:14)
[2016-05-29] MEDS ORDERED: ONDANSETRON DISINTEGRATING 4 MG TAB PO PRN (14:38)
[2016-05-29] MEDS ORDERED: PROMETHAZINE HCL 25 MG/ML INJ IV ONE (16:30)
[2016-05-29] MEDS: MONTELUKAST SODIUM 10 MG TAB PO SCH (19:44)
[2016-05-29] MEDS: DONEPEZIL HCL 5 MG TAB PO SCH (20:57)
[2016-05-30] MEDS: QUEtiapine FUMARATE 25 MG TAB PO PRN ×2 (02:24→22:01)
[2016-05-30] MEDS: ACETAMINOPHEN 500 MG TAB PO PRN (02:24)
[2016-05-30] MEDS: HEPARIN 5,000 UNIT/0.5 ML SYR SC SCH ×3 (05:34→21:08)
[2016-05-30 05:57] LABS: HEMOGLOBIN 13.1 g/dL (12.6-16.3); MEAN CELL HEMOGLOBIN 29.3 pg (27.9-34.1); MEAN CELL HEMOGLOBIN CONCENTR. 33.6 g/dL (32.4-36.7); MEAN CELL VOLUME 87.2 fL (81.5-99.8); RED BLOOD CELL COUNT 4.47 10^6/uL (4.18-5.33); RED CELL DISTRIBUTION WIDTH 12.5 % (11.5-15.2)
[2016-05-30 06:18] LABS: ANION GAP 4 mEq/L (8-16); CALCIUM 9.1 mg/dL (8.5-10.4); CARBON DIOXIDE 34 mEq/l (22-31); CHLORIDE 96 mEq/L (97-110); CREATININE 0.9 mg/dL (0.6-1.0); GLOMERULAR FILTRATION RATE > 60; GLUCOSE 79 mg/dL (70-100); POTASSIUM 3.4 mEq/L (3.5-5.2); SODIUM 134 mEq/L (134-144)
[2016-05-30] MEDS: PANTOPRAZOLE SODIUM 40 MG TAB PO SCH (10:51)
[2016-05-30] MEDS: LISINOPRIL/HCTZ 20/12.5MG 1 EA TAB PO SCH (10:51)
[2016-05-30] MEDS ORDERED: POTASSIUM CL 20 MEQ TAB PO ONE (14:13)
--- NOTE | 2016-05-30 14:17 | HOSPPROG ---
Hospitalist Progress Note Assessment/Plan: #Rapidly progressive dementia: improvement in mental status and mobility -paraneoplastic panel negative. Completed 5 day IV Solumedrol. FU Dr. Queen -avoid sedative meds (ie. Benzos, etc) #Mild cough: afebrile. CXR negative for PNA #Mild leukocytosis: afebrile, no PNA. Resolved; from steroids #Agitation: cont Seroquel #Dysphagia: speech to evaluate today #LUE swelling: negative for DVT #Accelerated HTN: on ACEI/HCTZ, but still high. Add Norvasc today #FTT: due to dementia #Neuropathy: hold Neurontin with oversedation #Mild leukocytosis: afebrile. Due to steroids #Acute hypoxic resp failure: due to atelectasis #Breast/incontinence dermatitis: wound care following #Deconditioning: strength improving daily #Diet: regular #DVT ppx: SQ[facility] #Disp: awaiting insurance approval for SNF acceptance; likely DC Monday Subjective: doing leg exercises in chair Objective: Vital Signs Temp Pulse Resp BP Pulse Ox 36.6 C 81 16 162/79 H 96 05/30/16 07:24 05/30/16 07:24 05/30/16 07:24 05/30/16 07:24 05/30/16 07:24 Laboratory Results 05/30/16 05:35 05/30/16 05:35 05/29/16 05/30/16 05/31/16 05:59 05:59 05:59 Intake Total 3043 850 Output Total 2000 200 Balance 1043 650 PT 13.2 SEC (12.0-15.0) 05/21/16 09:50 INR 1.01 (0.83-1.16) 05/21/16 09:50 - Physical Exam Constitutional: chronically ill appearing Eyes: PERRL Ears, Nose, Mouth, Throat: moist mucous membranes, hearing normal Cardiovascular: regular rate and rhythym, no murmur, rub, or gallop Respiratory: no respiratory distress, no rales or rhonchi Gastrointestinal: normoactive bowel sounds, soft, non-tender abdomen Genitourinary: no bladder fullness, no bladder tenderness Skin: warm Musculoskeletal: full muscle strength Neurologic: CN II-XII Intact Psychiatric: interacting appropriately (brighter today and more interactive) ICD10 Worksheet Patient Problems: Problems Problem Status Onset Palliative care encounter Acute Lower limb nerve lesion Active Multiple myeloma in remission Active Back pain Acute Decubital ulcer Acute Knee pain, acute Acute Yeast infection involving the vagina and surrounding area Acute GERD (gastroesophageal reflux disease) Chronic Hypertension Chronic
[2016-05-30] MEDS: amLODIPine BESYLATE 5 MG TAB PO SCH (14:46)
[2016-05-30] MEDS: MONTELUKAST SODIUM 10 MG TAB PO SCH ×2 (20:48→20:51)
[2016-05-30] MEDS: DONEPEZIL HCL 5 MG TAB PO SCH (20:48)
[2016-05-30] MEDS: METHYL SALICYLATE/MENTHOL OINTMENT TP PRN (21:07)
[2016-05-31 03:24] VITALS: RESP 18
[2016-05-31] MEDS: HEPARIN 5,000 UNIT/0.5 ML SYR SC SCH ×2 (06:25→15:36)
[2016-05-31 07:14] LABS: ANION GAP 6 mEq/L (8-16); CALCIUM 8.9 mg/dL (8.5-10.4); CARBON DIOXIDE 32 mEq/l (22-31); CHLORIDE 98 mEq/L (97-110); CREATININE 0.9 mg/dL (0.6-1.0); GLOMERULAR FILTRATION RATE > 60; GLUCOSE 84 mg/dL (70-100); POTASSIUM 3.6 mEq/L (3.5-5.2); SODIUM 136 mEq/L (134-144)
[2016-05-31] MEDS: amLODIPine BESYLATE 5 MG TAB PO SCH (10:01)
[2016-05-31] MEDS: PANTOPRAZOLE SODIUM 40 MG TAB PO SCH (10:01)
[2016-05-31] MEDS: LISINOPRIL/HCTZ 20/12.5MG 1 EA TAB PO SCH (10:01)
--- NOTE | 2016-05-31 13:31 | HOSPPROG ---
Hospitalist Progress Note Assessment/Plan: Rapidly progressive dementia: improvement in mental status and mobility -paraneoplastic panel negative. Completed 5 day IV Solumedrol. FU Dr. Queen -avoid sedative meds (ie. Benzos, etc) #Mild cough: afebrile. CXR negative for PNA #Mild leukocytosis: afebrile, no PNA. Resolved; from steroids #Agitation: cont Seroquel #Dysphagia: speech to evaluate today #LUE swelling: negative for DVT #Accelerated HTN: on ACEI/HCTZ, but still high. Add Norvasc today #FTT: due to dementia #Neuropathy: hold Neurontin with oversedation #Mild leukocytosis: afebrile. Due to steroids #Acute hypoxic resp failure: due to atelectasis #Breast/incontinence dermatitis: wound care following #Deconditioning: strength improving daily #Diet: regular to SNF today > 30 minutes Objective: Vital Signs Temp Pulse Resp BP Pulse Ox 36.3 C 78 18 121/68 H 95 05/31/16 08:00 05/31/16 08:00 05/31/16 08:00 05/31/16 08:00 05/31/16 08:00 Laboratory Results 05/30/16 05:35 05/31/16 06:40 05/30/16 05/31/16 06/01/16 05:59 05:59 05:59 Intake Total 850 Output Total 200 Balance 650 PT 13.2 SEC (12.0-15.0) 05/21/16 09:50 INR 1.01 (0.83-1.16) 05/21/16 09:50 ICD10 Worksheet Patient Problems: Problems Problem Status Onset Palliative care encounter Acute Lower limb nerve lesion Active Multiple myeloma in remission Active Back pain Acute Decubital ulcer Acute Knee pain, acute Acute Yeast infection involving the vagina and surrounding area Acute GERD (gastroesophageal reflux disease) Chronic Hypertension Chronic
--- NOTE | 2016-05-31 13:41 | PDIAF ---
- Diagnosis Diagnosis: dementia Code Status: Full Code - Medication Management Discharge Medications: Medications to Continue on Transfer Fluticasone/Salmeter 100/50Mcg [Advair 100/50 (*)] 1 puffs IH BID 10/24/15 [ Last Taken 10/24/15] Gabapentin [Neurontin 300 MG (*)] 600 mg PO HS 10/24/15 [Last Taken Unknown] Herbals/Supplements -Info Only 1 ea PO DAILY 10/24/15 [Last Taken Unknown] celeCOXIB [Celebrex (*)] 200 mg PO DAILY 10/24/15 [Last Taken 10/24/15] Gabapentin [Neurontin 300 MG (*)] 300 mg PO DAILY06 10/25/15 [Last Taken Unknown ] Albuterol [Proventil Inhaler HFA (*)] 1 - 2 puffs IH DAILY PRN 05/12/16 [Last Taken Unknown] Esomeprazole Mag Trihydrate [Nexium] 40 mg PO DAILY 05/12/16 [Last Taken Unknown ] Lisinopril/Hctz 20/12.5MG [Zestoretic/Prinzide 20/12.5MG (*)] 1 ea PO DAILY 05/27 [Last Taken Unknown] Montelukast Sodium [Singulair 10 mg (*)] 10 mg PO DAILY@1800 05/12/16 [Last Taken Unknown] Polyethylene Glycol 3350 [Miralax 17 gm (*)] 17 gm PO DAILY 05/12/16 [Last Taken Unknown] Triamterene/Hydrochlorothiazid [Triamterene-Hctz 37.5-25 mg Tb] 1 each PO DAILY PRN 05/12/16 [Last Taken Unknown] Donepezil HCl [Aricept 5 MG (*)] 5 mg PO HS #0 tab 05/31/16 [Last Taken Unknown] Methyl Salicylate/Menthol [Bengay (*)] 1 devendra TP BID PRN #0 oint 05/31/16 [Last Taken Unknown] QUEtiapine FUMARATE [Seroquel 25 mg (*)] 25 mg PO DAILY PRN #0 tab 05/31/16 [ Last Taken Unknown] Sennosides/Docusate Sodium [Senokot-S] 1 - 2 tab PO BID PRN #0 tab 05/31/16 [ Last Taken Unknown] morphINE [Roxanol 10 mg/0.5 ml oral soln (*)] 5 - 10 mg PO Q4H PRN #0 udsyr [Last Taken Unknown] Discharge Medications: Refer to the Discharge Home Medication list for PRN reason. - Orders Services needed: Registered Nurse, Physical Therapy, Occupational Therapy, Speech Language Pathologist Diet Texture: Regular Texture Diet, Thin Liquids, Meds Whole w/Liquids, Meds Whole in Puree - Follow Up Care Current Providers and Referrals: IN STATE,. [Primary Care Provider] -
--- NOTE | 2016-05-31 14:13 | GDS ---
[f rep st] DISCHARGE SUMMARY DISCHARGE DIAGNOSES: 1. Fall. 2. Rapidly progressive dementia with large workup that is negative. 3. Hypertension. 4. Dysphagia. 5. Failure to thrive. 6. Neuropathy. 7. Hypoxemic respiratory failure, now resolved. CONSULTS DURING THIS ADMISSION: Neurology. PROCEDURES: Lumbar puncture which revealed elevated protein with old blood but no white cells. Cul tures were unremarkable. HOSPITAL COURSE: The patient presented with falls, progressive dementia, aforementioned workup. Sh e did improve with a course of steroids. She had a brain MRI performed on the , showing hypervas cular ischemic changes with moderate age-appropriate atrophy. She is discharged to local SNF with outpatient followup with Neurology. /[id number]/MODL
[2016-05-31 16:36] VITALS: BP 129/84; PULSE 82; TEMP 98.9; O2SAT 98
== END 2016-05-31 17:30 | DRG 884 ==
LOC: EDUNIT# → F1N 05:26
PROVIDERS: ADMIT Internal Medicine; ATTEND Internal Medicine
PROC: 009U3ZX Drainage of Spinal Canal, Percutaneous Approach, Diagnostic (ICD-10-PCS; principal; 2016-05-21)
PROC: 02HV33Z Insertion of Infusion Device into Superior Vena Cava, Percutaneous Approach (ICD-10-PCS; 2016-05-23)
DX: F03.91 Unspecified dementia, unspecified severity, with behavioral disturbance (principal); J96.11 Chronic respiratory failure with hypoxia; C90.01 Multiple myeloma in remission; S93.402A Sprain of unspecified ligament of left ankle, initial encounter; I10 Essential (primary) hypertension; L30.9 Dermatitis, unspecified; E66.01 Morbid (severe) obesity due to excess calories; G62.9 Polyneuropathy, unspecified; R13.10 Dysphagia, unspecified; J45.909 Unspecified asthma, uncomplicated; W18.49XA Other slipping, tripping and stumbling without falling, initial encounter; Y93.89 Activity, other specified; Y92.019 Unspecified place in single-family (private) house as the place of occurrence of the external cause; R62.7 Adult failure to thrive; M19.019 Primary osteoarthritis, unspecified shoulder; E86.0 Dehydration; Z96.643 Presence of artificial hip joint, bilateral; Z86.718 Personal history of other venous thrombosis and embolism; Z85.3 Personal history of malignant neoplasm of breast; Z96.653 Presence of artificial knee joint, bilateral
CPT/HCPCS: 82607-90; 82784-90; 83520-90; 83916-90; 86256-90; 86376-90; 87529-90; 92507-GN; 92523-GN; 92526-GN; 92610-GN; 96374; 97110-GP; 97112-GP; 97116-GP; 97162-GP; 97166-GO; 97530-GO; 97530-GP; 97535-GO; C1751; G8978-GP-CM; G8979-GP-CL; G8996-GN-CH; G8997-GN-CH; G8998-GN-CH; G9168-GN-CM; G9169-GN-CL; J0696; J1170; J2405; J2550; J2930; J2997

== ENCOUNTER 2017-03-21 15:55 | Inpatient (IN) | payer OTHER ==
[2017-03-21] MEDS ORDERED: NS 500 ML IV ONE (16:20)
[2017-03-21 17:20] LABS: % IMMATURE GRANULYOCYTES 0.7 % (0.0-1.1); ABSOLUTE IMMATURE GRANULOCYTES 0.07 10^3/uL (0.00-0.10); ADD DIFF? NO; ADD MORPH? NO; ADD SCAN? NO; ATYPICAL LYMPHOCYTE FLAG 10 (0-99); FRAGMENT RBC FLAG 0 (0-99); HEMATOCRIT 39.8 % (38.0-47.0); HEMOGLOBIN 13.1 g/dL (12.6-16.3); LEFT SHIFT FLG 0 (0-99); LIPEMIA HEMOLYSIS FLAG 80 (0-99); MEAN CELL HEMOGLOBIN 29.4 pg (27.9-34.1); MEAN CELL HEMOGLOBIN CONCENTR. 32.9 g/dL (32.4-36.7); MEAN CELL VOLUME 89.2 fL (81.5-99.8); MEAN PLATELET VOLUME 8.9 fL (8.7-11.7); PLATELET CLUMPS FLAG 0 (0-99); PLATELET COUNT 216 10^3/uL (150-400); RED BLOOD CELL COUNT 4.46 10^6/uL (4.18-5.33); RED CELL DISTRIBUTION WIDTH 13.9 % (11.5-15.2)
--- NOTE | 2017-03-21 17:33 | CPEKG ---
Heart Rate: 79 RR Interval: 759 P-R Interval: 172 QRSD Interval: 98 QT Interval: 412 QTC Interval: 473 P [place]: 56 QRS [place]: -42 T Wave [place]: 24 EKG Severity - ABNORMAL ECG - EKG Impression: SINUS RHYTHM EKG Impression: LEFT ATRIAL ABNORMALITY EKG Impression: LEFT AXIS DEVIATION Electronically Signed By: Michael Berry 21-Mar-2017 22:22:43
[2017-03-21 17:42] LABS: COLOR YELLOW; LEUKOCYTE ESTERASE,URINE NEGATIVE (NEGATIVE); NITRITE,URINE POSITIVE (NEGATIVE)
[2017-03-21 17:43] LABS: ALANINE AMINOTRANSFERASE 27 IU/L (9-52); ALBUMIN 3.7 g/dL (3.5-5.0); ALKALINE PHOSPHATASE 119 IU/L (38-126); ANION GAP 13 mEq/L (8-16); ASPARTATE AMINOTRANSFERASE 24 IU/L (14-46); BILIRUBIN,TOTAL 0.3 mg/dL (0.1-1.4); BILIRUBIN-CONJUGATED 0.2 mg/dL (0.0-0.5); BILIRUBIN-UNCONJUGATED 0.1 mg/dL (0.0-1.1); CALCIUM 9.9 mg/dL (8.5-10.4); CARBON DIOXIDE 26 mEq/l (22-31); CHLORIDE 103 mEq/L (97-110); CREATININE 0.9 mg/dL (0.6-1.0); ETHANOL SERUM < 10 mg/dL (0-10); GLOMERULAR FILTRATION RATE > 60; GLUCOSE 113 mg/dL (70-100); POTASSIUM 4.2 mEq/L (3.5-5.2); SODIUM 142 mEq/L (134-144)
[2017-03-21 17:56] LABS: BACTERIA 4+ /hpf (NONE SEEN); MUCUS TRACE /lpf (NONE-1+); RBC,URINE 15-25 /hpf (0-3)
--- NOTE | 2017-03-21 20:09 | EDPHY ---
H & P Time Seen by Provider: 03/21/17 16:19 HPI/ROS: HPI Altered mental status. 77-year-old female by ambulance from [facility]. care home staff reported that the patient seemed more somnolent than usual. Usually she is more active in communicative. They report that she gets this way when she develops urinary tract infection. She was sent for evaluation of this. She has a prior history of a CVA with chronic left-sided deficits. She is bed ridden. ROS: Unable to obtain review of systems secondary to patient's altered mental status. Past medical history: Dementia, hypertension, GERD, asthma, chronic pain, on oxygen at night, urinary tract infections. Social history: Has a daughter who lives nearby and who is [id number]. Patient is a nonsmoker. No alcohol. Bed ridden according to [facility] staff. Physical Exam: General Appearance: Alert, follows basic commands. Moderately obese. This patient appears generally well-hydrated and well-nourished. Eyes: Pupils equal and round no pallor or injection. No lid edema, erythema or injection. Respiratory: There are no retractions, lungs are clear to auscultation with good air movement bilaterally. Cardiovascular: Regular rate and rhythm. No murmur. Gastrointestinal: Abdomen is soft and nontender, no masses, bowel sounds normal. No focal tenderness at McBurney's point. No Donis sign. Neurological: I feel her motor sensory function is at baseline based on my exam and in accordance with the description of her condition from her [facility] staff. 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 She does follow basic commands. She has diminished but symmetrical deep tendon reflexes in the lower extremities. She appears to have a left-sided neglect. Skin: Warm and dry, she has stage I decubitus ulcers involving the bilateral gluteal regions Musculoskeletal: Neck is supple and nontender. Extremities are symmetrical. All joints range without pain or impingement. Psychiatric: Mild agitation. No depression. Database: EKG: EKG time is 5:31 p.m.; EKG shows a narrow complex normal sinus rhythm with a ventricular rate of 79. Left axis deviation noted. The IN, QRS, QT intervals are within normal limits. There are no ST-T wave changes indicative of ischemic or injury pattern. No evidence of right heart strain. Interpreted by me. Imaging: Chest x-ray AP portable; the cardiac mediastinal silhouette is unremarkable. No evidence of infiltrate or pneumothorax. No acute cardiopulmonary disease process noted. Interpreted by me. CT scan of head without contrast; CVA, likely subacute. Please see below report for details. Procedures: Emergency department course: Vital signs reviewed. She is hypertensive. Vital signs otherwise normal. She is afebrile. She was placed on a potline monitor. IV placed. She was started on IV normal saline with 500 cc to be given over the next hour. Urinalysis indicates urinary tract infection. She was given 1 g of IV ceftriaxone. She does not meet criteria for sepsis. 8:50 p.m., patient re-evaluated. She is following basic commands. No change in her neurologic status from prior. I spoke with the on-call hospitalist Dr. Byron Contreras. She has been accepted for admission to the hospitalist service. We considered getting a noncontrast MRI to further evaluate her prior CVA but secondary to her agitation this will be deferred to the hospitalist service. Her remaining emergency department course under my care has been uneventful. She was admitted in stable condition. Differential Diagnosis: The differential diagnosis on this patient includes but is not limited to urinary tract infection, altered mental status secondary to this. Sepsis, acute CVA, TIA, pneumonia unlikely. This represents a partial list of diagnoses considered. These considerations are based on history, physical exam , past history, reassessment and diagnostic testing. Smoking Status: Former smoker Constitutional: Initial Vital Signs Temperature (C) 36.5 C 03/21/17 16:09 Heart Rate 75 03/21/17 16:09 Respiratory Rate 18 03/21/17 16:09 Blood Pressure 187/102 H 03/21/17 16:09 O2 Sat (%) 97 03/21/17 16:09 O2 Delivery Mode Nasal Cannula O2 (L/minute) 2 Allergies/Adverse Reactions: No Allergies [NKDA] Allergy (Unknown, Verified 08/20/12 13:30) Home Medications: Medication Instructions Recorded Fluticasone/Salmeter 100/50Mcg 1 puffs IH BID 10/24/15 [Advair 100/50 (*)] Herbals/Supplements -Info Only 1 ea PO DAILY 10/24/15 celeCOXIB [Celebrex (*)] 200 mg PO BID@08,18 10/24/15 Gabapentin [Neurontin 300 MG (*)] 300 mg PO BID@10/25/15 Esomeprazole Mag Trihydrate 40 mg PO DAILY@05/12/16 [Nexium] Montelukast Sodium [Singulair 10 10 mg PO DAILY@05/12/16 mg (*)] Polyethylene Glycol 3350 [Miralax 17 gm PO DAILY PRN 05/12/16 17 gm (*)] Acetaminophen [Tylenol 325mg (*)] 650 mg PO Q6 PRN 03/21/17 Docusate Sodium [Colace 100 MG (*)] 100 mg PO DAILY@03/21/17 Donepezil HCl [Aricept 5 MG (*)] 10 mg PO DAILY@03/21/17 Hydrocodone/Acetaminophen [[place] 1 tab PO Q6 PRN 03/21/17 5/325 (*)] Mirabegron [Myrbetriq] 25 mg PO DAILY@03/21/17 Multivitamins [Multivitamin (*)] 1 each PO DAILY 03/21/17 Sertraline HCl [Zoloft 50mg (*)] 50 mg PO DAILY 03/21/17 Medical Decision Making - Diagnostics Imaging Results: Imaging Impressions Abdomen X-Ray 03/21/17 00:00 Impression: No contraindication to MRI identified in the lower chest or abdomen. Chest X-Ray 03/21/17 00:00 Impression: Negative for acute abnormality with findings as detailed above. Head CT 03/21/17 16:22 Impression: 1. Suspect multifocal subacute infarctions involving the right parietoccipital, high bilateral posterior parietal, and posterior left frontal lobes. Query subtle hemorrhagic transformation within the high parietal and posterior left frontal lobes. 2. No subdural hematoma or mass effect. Findings discussed with Emergency Department physician, Dr. Michael Berry on March 21, 2017 at 1718 hours. - Data Points Laboratory Results: Laboratory Results 03/21/17 17:12 03/21/17 17:12 03/21/17 03/21/17 03/21/17 17:20 17:12 17:12 WBC 9.75 10^3/uL H 10^3/uL (3.80-9.50) RBC 4.46 10^6/uL 10^6/uL (4.18-5.33) Hgb 13.1 g/dL g/dL (12.6-16.3) Hct 39.8 % % (38.0-47.0) MCV 89.2 fL fL (81.5-99.8) MCH 29.4 pg pg (27.9-34.1) MCHC 32.9 g/dL g/dL (32.4-36.7) RDW 13.9 % % (11.5-15.2) Plt Count 216 10^3/uL 10^3/uL (150-400) MPV 8.9 fL fL (8.7-11.7) Neut % (Auto) 79.3 % H % (39.3-74.2) Lymph % (Auto) 13.5 % L % (15.0-45.0) [place] % (Auto) 5.6 % % (4.5-13.0) Eos % (Auto) 0.6 % % (0.6-7.6) Baso % (Auto) 0.3 % % (0.3-1.7) Nucleat RBC Rel Count 0.0 % % (0.0-0.2) Absolute Neuts (auto) 7.72 10^3/uL H 10^3/uL (1.70-6.50) Absolute Lymphs (auto) 1.32 10^3/uL 10^3/uL (1.00-3.00) Absolute Monos (auto) 0.55 10^3/uL 10^3/uL (0.30-0.80) Absolute Eos (auto) 0.06 10^3/uL 10^3/uL (0.03-0.40) Absolute Basos (auto) 0.03 10^3/uL 10^3/uL (0.02-0.10) Absolute Nucleated RBC 0.00 10^3/uL 10^3/uL (0-0.01) Immature Gran % 0.7 % % (0.0-1.1) Immature Gran # 0.07 10^3/uL 10^3/uL (0.00-0.10) Sodium 142 mEq/L mEq/L (134-144) Potassium 4.2 mEq/L mEq/L (3.5-5.2) Chloride 103 mEq/L mEq/L (97-110) Carbon Dioxide 26 mEq/l mEq/l (22-31) Anion Gap 13 mEq/L mEq/L (8-16) BUN 20 mg/dL mg/dL (7-23) Creatinine 0.9 mg/dL mg/dL (0.6-1.0) Estimated GFR > 60 Glucose 113 mg/dL H mg/dL (70-100) Calcium 9.9 mg/dL mg/dL (8.5-10.4) Total Bilirubin 0.3 mg/dL mg/dL (0.1-1.4) Conjugated Bilirubin 0.2 mg/dL mg/dL (0.0-0.5) Unconjugated Bilirubin 0.1 mg/dL mg/dL (0.0-1.1) AST 24 IU/L IU/L (14-46) ALT 27 IU/L IU/L (9-52) Alkaline Phosphatase 119 IU/L IU/L (38-126) Total Protein 7.0 g/dL g/dL (6.3-8.2) Albumin 3.7 g/dL g/dL (3.5-5.0) TSH 1.440 uIU/mL uIU/mL (0.465-4.680) Urine Color YELLOW Urine Appearance HAZY Urine pH 7.0 (5.0-7.5) Ur Specific [place] 1.020 (1.002-1.030) Urine Protein NEGATIVE (NEGATIVE) Urine Ketones NEGATIVE (NEGATIVE) Urine Blood NEGATIVE (NEGATIVE) Urine Nitrate POSITIVE H (NEGATIVE) Urine Bilirubin NEGATIVE (NEGATIVE) Urine Urobilinogen NEGATIVE EU EU (0.2-1.0) Ur Leukocyte Esterase NEGATIVE (NEGATIVE) Urine RBC 15-25 /hpf H /hpf (0-3) Urine WBC 3-5 /hpf H /hpf (0-3) Ur Epithelial Cells TRACE /lpf /lpf (NONE-1+) Urine Bacteria 4+ /hpf H /hpf (NONE SEEN) Urine Mucus TRACE /lpf /lpf (NONE-1+) Urine Glucose NEGATIVE (NEGATIVE) Urine Opiates Screen NEGATIVE (NEGATIVE) Urine Barbiturates NEGATIVE (NEGATIVE) Ur Phencyclidine Scrn NEGATIVE (NEGATIVE) Ur Amphetamine Screen NEGATIVE (NEGATIVE) U Benzodiazepines Scrn NEGATIVE (NEGATIVE) Urine Cocaine Screen NEGATIVE (NEGATIVE) U Marijuana (THC) Screen NEGATIVE (NEGATIVE) Ethyl Alcohol < 10 mg/dL mg/dL (0-10) Medications Given: Dextrose/Sodium Chloride (D5w 1/2 Ns) 1,000 mls @ 100 mls/hr IV CONT RAY Stop: 03/22/17 07:29 Last Admin: 03/21/17 22:29 Dose: 1,000 mls Polyethylene Glycol (Miralax) 17 gm PO DAILY RAY Stop: 09/17/17 21:29 Last Admin: 03/21/17 22:29 Dose: 17 gm Discontinued Medications Sodium Chloride (Ns) 500 mls @ 0 mls/hr IV EDNOW ONE; Wide Open PRN Reason: Protocol Stop: 03/21/17 16:21 Last Admin: 03/21/17 17:26 Dose: 500 mls Ceftriaxone Sodium/Dextrose (Rocephin 1 Gm (Premix)) 50 mls @ 100 mls/hr IV EDNOW ONE PRN Reason: Protocol Stop: 03/21/17 19:24 Last Admin: 03/21/17 19:05 Dose: 50 mls Departure - Departure Disposition: [facility] Inpatient Acute Clinical Impression: Urinary tract infection, Altered mental status
[2017-03-21] MEDS ORDERED: ONDANSETRON 4 MG/2 ML VIAL IVP PRN (21:18)
[2017-03-21] MEDS ORDERED: ONDANSETRON DISINTEGRATING 4 MG TAB PO PRN (21:18)
[2017-03-21] MEDS ORDERED: ACETAMINOPHEN 325 MG TAB PO PRN (21:18)
[2017-03-21] MEDS ORDERED: D5W 1/2 NS 1,000 ML IV SCH (21:30)
--- NOTE | 2017-03-21 22:23 | GHP ---
[f rep st] HISTORY AND PHYSICAL DATE OF ADMISSION: 03/21/2017 HISTORY OF PRESENT ILLNESS: Ms. King is a 77-year-old female with a history of rapidly progress rosita dementia, as well as hyperlipidemia, osteoarthritis, UTIs, and VTE, as well as breast cancer. Edith vang was brought in from the [facility] where she lives, with somnolence. When I speak wit h the patient, she is able to deny urinary symptoms or diarrhea. She says she does not have pain any where. She also says she has had urinary symptoms in the past, but does not have them now. She denies shortness of breath. She is able to tell me she can feel on both sides, essent ially without complaints. She is somewhat confused. I have taken care of her on previous admissions for rapidly progressive dementia. She was discharged to the [facility]. In reviewing her medication list, potentially sedating medications include gabapentin, although she h as been on that at least since November, as well as [place]. Zyprexa and Zoloft were discontinued today. REVIEW OF SYSTEMS: A complete 10-point review of systems was conducted and negative except as noted in the HPI. PAST MEDICAL HISTORY: Dementia of uncertain etiology, rapidly progressive. She had an MRI in of this year showing no evidence of acute infarction and hypervascular changes. She also has a hi story of UTI, COPD not on oxygen, mental status changes, pressure ulcer, hyperlipidemia, protein marilyn royer malnutrition, obesity, and breast cancer. ALLERGIES: No known drug allergies. HOME MEDICATIONS: Celebrex, gabapentin, Centrum Silver, donepezil, montelukast, Nexium, Colace, Zolo ft, [place], Myrbetriq, Tylenol, MiraLAX, tumeric, and Advair. SOCIAL HISTORY: She lives at the [facility]. No alcohol. No tobacco. FAMILY HISTORY: Parents are . PHYSICAL EXAMINATION: PRESENTING VITAL SIGNS: Temperature 36.5, blood pressure 187/102, pulse 75, b reathing 18 times a minute, 97% on 2 L. GENERAL: No acute distress. Lying flat. HEENT: Sclerae a re anicteric. Oropharynx is clear. Mucous membranes are moist. NECK: Supple without lymphadenopat hy or JVD. LUNGS: Clear auscultation anterolaterally. HEART: S1, S2. ABDOMEN: Soft, nontender, nondistended. LOWER EXTREMITIES: Without edema. Based on her feet, it is clear she does not walk. NEUROLOGIC: Exam is limited and grossly nonfocal. She is moving her extremities and symmetric sens ation. LABORATORY DATA: White count 9.75, which is not high for her. Hematocrit 39.8. Platelets are 216,0 00. Sodium of 142, potassium 4.2, chloride 103, bicarbonate 26, BUN 20, creatinine 0.9, glucose 113. TSH is 1.4. U/A shows 15 to 25 red cells, 3 to 5 white cells. This is a little bit greater than u sual. She also has 4+ bacteria. Toxicology screen is negative. Alcohol level is normal. Chest x-ray interpreted by me shows no acute cardiopulmonary disease. It is limited somewhat by her body habitus. IMAGING STUDIES: 1. Abdominal x-ray is unremarkable. She has constipation. 2. EKG interpreted by me, shows sinus at 79 with left axis deviation. No ST or T-wave changes. 3. Head CT: Suspected multifocal subacute infarctions in the right parietal occipital, high bilater al posterior parietal, and posterior left frontal lobe. Query subtle hemorrhagic transformation in t he high parietal posterior left lobe. No hematoma or mass effect. I discussed the case with Dr. Michael Berry. ASSESSMENT AND PLAN: A 77-year-old female with dementia presenting with mental status changes. 1. Mental status changes. The patient is encephalopathic. It is not clear there is much of a depar ture from her baseline. Abnormal U/A, although it is not particularly abnormal. She received antibi otics in the emergency department. We are not going to continue them. Also potentially noted as abn ormal is a medication such as [place] on her medication list. This could be potentially sedating. I t hink this may not be ideal for her. 2. Chronic obstructive pulmonary disease. We will continue medications and then reconcile. 3. Potential stroke. The patient has a limited capacity on neurologic examination. This is a barnes e from her MRI in May of this year. I will put her on telemetry. Given the potential transform ation we will hold on aspirin and follow her. We will repeat a head CT in the morning. It does not appear to be an acute event. 4. Code status. She appears to be full code. 5. Constipation. I have written her for some MiraLAX. 6. Disposition. Observation status. /[id number]/MODL
[2017-03-21] MEDS: POLYETHYLENE GLYCOL 3350 17 GM PKT PO SCH (22:29)
[2017-03-22 09:28] LABS: % IMMATURE GRANULYOCYTES 0.5 % (0.0-1.1); ABSOLUTE IMMATURE GRANULOCYTES 0.04 10^3/uL (0.00-0.10); ADD DIFF? NO; ADD MORPH? NO; ADD SCAN? NO; ATYPICAL LYMPHOCYTE FLAG 0 (0-99); FRAGMENT RBC FLAG 0 (0-99); HEMATOCRIT 39.6 % (38.0-47.0); HEMOGLOBIN 13.1 g/dL (12.6-16.3); LEFT SHIFT FLG 0 (0-99); LIPEMIA HEMOLYSIS FLAG 80 (0-99); MEAN CELL HEMOGLOBIN 29.2 pg (27.9-34.1); MEAN CELL HEMOGLOBIN CONCENTR. 33.1 g/dL (32.4-36.7); MEAN CELL VOLUME 88.4 fL (81.5-99.8); MEAN PLATELET VOLUME 9.2 fL (8.7-11.7); PLATELET CLUMPS FLAG 0 (0-99); PLATELET COUNT 214 10^3/uL (150-400); RED BLOOD CELL COUNT 4.48 10^6/uL (4.18-5.33); RED CELL DISTRIBUTION WIDTH 13.7 % (11.5-15.2)
[2017-03-22 09:34] LABS: INR 0.95 (0.83-1.16); PROTIME(PATIENT) 12.9 SEC (12.0-15.0)
[2017-03-22 09:49] LABS: ANION GAP 11 mEq/L (8-16); CALCIUM 9.6 mg/dL (8.5-10.4); CARBON DIOXIDE 25 mEq/l (22-31); CHLORIDE 105 mEq/L (97-110); CREATININE 0.8 mg/dL (0.6-1.0); GLOMERULAR FILTRATION RATE > 60; GLUCOSE 101 mg/dL (70-100); POTASSIUM 4.2 mEq/L (3.5-5.2); SODIUM 141 mEq/L (134-144)
[2017-03-22] MEDS: POLYETHYLENE GLYCOL 3350 17 GM PKT PO SCH (11:36)
[2017-03-22] MEDS ORDERED: POLYETHYLENE GLYCOL 3350 17 GM PKT PO PRN (13:20)
--- NOTE | 2017-03-22 13:20 | HOSPPROG ---
Hospitalist Progress Note Assessment/Plan: Patient is a 77 y/o with progressive dementia who presented to the ER with somnolence. Today is my first encounter w the patient, chart reviewed. * Likely stroke (unclear if this is acute or subacute) -CT scan shows suspected multifocal subacute infarctions in r parietal occipital , high bilateral posterior parietal and posterior l frontal lobe -will ask neurology to see -MRI ordered -called her to update him on results of the CT scan -reviewed telemetry - she is in sinus rhythm -check lipid panel and A1c -due to her dementia it is hard to get a clear cut neuro exam, she appears to be bedridden *acute on chronic encephalopathy -patient has underlying dementia -suspect the above added to her confusion *Pyuria -likely chronic colonization *COPD -resumed inhaler *constipation -having regular bowel movements *plan: will ask neurology to evaluate, she will need another midnight stay for further w/u and evaluation which will make her IP stay. Subjective: Bridgett is not c/o pain. Explained to her about concerns of CT of her head, she is fine getting an MRI. Objective: Vital Signs Temp Pulse Resp BP Pulse Ox 37.4 C 68 20 165/91 H 91 L 03/22/17 11:11 03/22/17 11:11 03/22/17 11:11 03/22/17 11:11 03/22/17 11:11 Laboratory Results 03/22/17 09:15 03/22/17 09:15 03/21/17 03/22/17 03/23/17 05:59 05:59 05:59 Intake Total 802 Balance 802 PT 12.9 SEC (12.0-15.0) 03/22/17 09:15 INR 0.95 (0.83-1.16) 03/22/17 09:15 - Physical Exam Constitutional: appears nourished, not in pain, chronically ill appearing Eyes: PERRL Ears, Nose, Mouth, Throat: hearing normal Cardiovascular: regular rate and rhythym, no murmur, rub, or gallop Respiratory: no respiratory distress Gastrointestinal: normoactive bowel sounds, no palpable masses Skin: warm Musculoskeletal: other (appears to be bedridden) Neurologic: other (alert and appropriate), No facial droop Psychiatric: interacting appropriately, not anxious, No not encephalopathic ICD10 Worksheet Patient Problems: Problems Problem Status Onset Altered mental status Acute Urinary tract infection Acute Lower limb nerve lesion Active Multiple myeloma in remission Active Back pain Acute Decubital ulcer Acute Knee pain, acute Acute Palliative care encounter Acute Yeast infection involving the vagina and surrounding area Acute GERD (gastroesophageal reflux disease) Chronic Hypertension Chronic
--- NOTE | 2017-03-22 16:35 | PDMN ---
Medical Necessity Medical necessity: Pt meets INPT criteria per CARD SORTER/MD as of 03/22/17 (est. LOS >2 MN for ongoing eval/mgmt of likely stroke, acute on chronic encephalopathy; neuro consult and MRI pending per CARD SORTER progress note).
[2017-03-22] MEDS: GABAPENTIN 300 MG CAP PO SCH (18:29)
[2017-03-22] MEDS: FLUTICASONE/SALMETER 100/50MCG DISKUS IH SCH (20:41)
[2017-03-23 07:50] LABS: CHOLESTEROL 245 mg/dL (140-220); HIGH DENSITY LIPOPROTEIN 79 mg/dL (40-85); LDL/HDL RATIO 1.81 RATIO (1.00-3.22); LOW DENSITY LIPOPROTEIN 143 mg/dL (80-100); NON-HIGH DENSITY LIPOPROTEIN 166 mg/dL (90-129); TRIGLYCERIDE 117 mg/dL (35-135); VERY LOW DENSITY LIPOPROTEINS 23 mg/dL (8-25)
[2017-03-23] MEDS ORDERED: NON-FORMULARY NEW DRUG (Esomeprazole Mag Trihydrate [Nexium] 40 MG) PO SCH (08:00)
[2017-03-23] MEDS: FLUTICASONE/SALMETER 100/50MCG DISKUS IH SCH ×2 (08:07→20:02)
[2017-03-23] MEDS: GABAPENTIN 300 MG CAP PO SCH ×2 (09:21→17:20)
[2017-03-23] MEDS: MONTELUKAST SODIUM 10 MG TAB PO SCH (09:21)
[2017-03-23] MEDS: SERTRALINE HCL 50 MG TAB PO SCH (09:21)
[2017-03-23] MEDS: PANTOPRAZOLE SODIUM 40 MG TAB PO SCH (09:21)
[2017-03-23] MEDS: DOCUSATE SODIUM 100 MG CAP PO SCH (09:21)
[2017-03-23] MEDS: MULTIVITAMINS 1 EACH TAB PO SCH (09:21)
[2017-03-23] MEDS: DONEPEZIL HCL 5 MG TAB PO SCH (09:21)
[2017-03-23] MEDS: POLYETHYLENE GLYCOL 3350 17 GM PKT PO SCH (09:22)
--- NOTE | 2017-03-23 09:35 | NEUROPROG ---
Assessment: HOSPITAL NEUROLOGY CONSULT REQUESTING: Oxana Weinstein NP REASON: stroke HPI: 77 year old woman known to our practice from an admission in May 2016 for relatively rapidly progressive dementia. She was found to be parkinsonian with what appeared to be fluctuating LOC raising the likelihood of Lewy body dementia with parkinsonism. She had an unremarkable extensive workup for rapidly progressive dementia with MRI, extensive labs and CSF analysis, all of which were unyielding. She was discharged to a SNF with instructions to hold any neuroleptics. She reported back to our ED 03/21 as her SNF staff found her to be less verbal/ responsive. On admission, she was found to have an abnormal CT head wo with multiple areas of cortically based hypodensity concerning for ischemia. MRI brain wo was done showing rather symmetric restricted diffusion and T2 FLAIR hyperintensity in the the parasagittal/superior gyri from the occipital lobes to the frontal lobes. A few scattered areas of GRE blossoming were observed in these regions consistent with microbleeds. There is some faint reduced T1 signal in these regions, as well. On the floor, she is back to her baseline status without any focal deficits noted. She is baseline profoundly demented and bedbound with severe parkinsonism. There was no indication of any inciting event such as a cardiopulmonary event. The patient is unable to provide any meaningful history. No family is at bedside. I attempted to phone her to discuss her case but nobody answered. ROS: Unobtainable from patient ALLERGIES AND MEDS: As recorded in the EMR - reviewed and reconciled PFSH: As per the intake H&P by Dr. Contreras from 03/21 EXAM: VS reviewed in EMR GEN: WDWN laying in NAD. Her mouth is agape and she is staring at the ceiling. HEENT: NCAT, sclera anicteric, conjunctiva not injected, MMM, oropharynx clear, no scalp tenderness NECK: supple, nontender, no meningismus CV: RRR s1 s2 wo m/r/c/g. Carotid pulses 2+ wo bruit NEURO: MS: awake, reduced attention, disoriented to all spheres. She is very hypomimetic and bradyphrenic. Paucity of speech production, and she tends to answer vaguely in 1-2 word responses. Her speech is hypophonic and bradykinetic. No apparent language disturbance. Follows simple appendicular commands. Attends to both sides. Clear episodic/recent/remote memory disturbance on casual conversation. Mood depressed/withdrawn. Unable to get a good sense of fund of knowledge. CN: pupils 3mm round and reactive. Intolerant of fundoscopy. Blinks to threat OU. Primary gaze centered. Restricted vertical gaze. Smooth pursuit with saccadic intrusions and motor impersistence. Facial sensation preserved. Face symmetric. Hearing grossly intact to finger rub. Palate appears symmetric. She won't stick out her tongue, but there is a clear tremor of the tongue. Won' t participate in shoulder shrug/head turn. MOTOR: reduced appendicular bulk. She has rigidity in all extremities about all joints. Subtle resting tremor of the hands is notes. She does not participate in formal segmental strength testing but raises arms off bed and wiggles toes symmetrically. SENSORY: withdraws to nox stim in all extremities. She cannot participate in double simultaneous stimulation exam. COORD: cannot assess FN/HS. Capo profoundly bradykinetic -3-4. REFLEX: plantars extensor. No clonus. DTRS 2/4. GAIT: not safe to assess DATA REVIEW: Labs reviewed in EMR PERSONALLY INTERPRETED RESULTS AND DATA: MRI brain as per the HPI IMPRESSION AND RECOMMENDATIONS: // ENCEPHALOPATHY - RESOLVED // ABNORMAL MRI - STROKE VS. CORTICAL LAMINAR NECROSIS // DEMENTIA AND PARKINSONISM - SUSPECT LBD Patient with an episode of being less responsive and verbal. She has an abnormal MRI which could represent acute ischemic from cardioembolism or could be cortical laminar necrosis from a hypoxic ischemic event. There is no T1 hyperintensity in the regions of abnormality, which is typical of cortical laminar necrosis, but it may be too early for this to have developed. Cortical ribboning can also be seen in CJD, but the microhemorrhages are not typical and she is not displaying typical stigmata of CJD other than her dementia. I think it is important to clarify goals of care with her . She has very clear severe dementing illness with severe parkinsonism and is requiring SNF and is bedbound. She now has some process, likely vascular in nature, which has resulted in extensive cortical damage. We could clarify this diagnosis with a repeat MRI in 4 weeks to see what evolves on the sequences. But we may want to shift to a palliative approach at this time given her overall clinical picture and severity. In the interim, she can be started on ASA 325mg daily - microhemorrhages do not preclude this. A statin can be introduced as well. I would hold on further diagnostics until we can clarify goal of care with her . Case discussed with hospitalist team. Objective: Vital Signs Temp Pulse Resp BP Pulse Ox 36.7 C 60 12 180/89 H 90 L 03/23/17 08:00 03/23/17 08:08 03/23/17 08:08 03/23/17 08:00 03/23/17 08:08 03/22/17 03/23/17 03/24/17 05:59 05:59 05:59 Intake Total 50 Balance 50 PT 12.9 SEC (12.0-15.0) 03/22/17 09:15 INR 0.95 (0.83-1.16) 03/22/17 09:15 Allergies/Adverse Reactions: No Allergies [NKDA] Allergy (Unknown, Verified 08/20/12 13:30)
--- NOTE | 2017-03-23 10:10 | HOSPPROG ---
Hospitalist Progress Note Assessment/Plan: Patient is a 77 y/o with progressive dementia who presented to the ER with somnolence. Today is my first encounter w the patient, chart reviewed. * stroke(low likelihood) vs cortical laminar necrosis -MRI shows acute ischemic from poss emboli or necrosis from a hypoxic event -CT scan shows suspected multifocal subacute infarctions in r parietal occipital , high bilateral posterior parietal and posterior l frontal lobe -reviewed telemetry - she is in sinus rhythm -start asa therapy and statin therapy -due to her dementia it is hard to get a clear cut neuro exam, she is bedridden -will need a repeat MRI in 4 weeks *PRES (possible reversible encephalopathy syndrome )poss from htn -will treat her bp >160 -she is not on any bp agents, will start low dose Norvasc and prn hydralazine -reviewed her care with neurology *acute on chronic encephalopathy -patient has underlying dementia -suspect the above added to her confusion -reviewed her care w Neurology, she should not get neuroleptics *dementia and Parkinsonism *Pyuria -likely chronic colonization *COPD -resumed inhaler *constipation -having regular bowel movements *plan: Will require another midnight stay to see if she clears more with better blood pressure control Subjective: Bridgett said she isn't have any pain. Objective: Vital Signs Temp Pulse Resp BP Pulse Ox 36.7 C 60 12 180/89 H 90 L 03/23/17 08:00 03/23/17 08:08 03/23/17 08:08 03/23/17 08:00 03/23/17 08:08 03/22/17 03/23/17 03/24/17 05:59 05:59 05:59 Intake Total 50 Balance 50 PT 12.9 SEC (12.0-15.0) 03/22/17 09:15 INR 0.95 (0.83-1.16) 03/22/17 09:15 - Physical Exam Constitutional: no apparent distress, appears nourished, not in pain Eyes: PERRL Ears, Nose, Mouth, Throat: hearing normal Cardiovascular: regular rate and rhythym Respiratory: no respiratory distress Gastrointestinal: normoactive bowel sounds Skin: warm Musculoskeletal: generalized weakness, other (bedridden) Psychiatric: other (alert, answers questions appropriately with yes and no, pauses frequently when responding ) ICD10 Worksheet Patient Problems: Problems Problem Status Onset Altered mental status Acute Urinary tract infection Acute Lower limb nerve lesion Active Multiple myeloma in remission Active Back pain Acute Decubital ulcer Acute Knee pain, acute Acute Palliative care encounter Acute Yeast infection involving the vagina and surrounding area Acute GERD (gastroesophageal reflux disease) Chronic Hypertension Chronic
[2017-03-23] MEDS ORDERED: hydrALAZINE 10 MG TAB PO PRN (10:23)
[2017-03-23] MEDS: ASPIRIN 325 MG TAB PO SCH (11:14)
[2017-03-23] MEDS: ATORVASTATIN CALCIUM 10 MG TAB PO SCH (11:14)
--- NOTE | 2017-03-23 11:56 | ASMTCMCOM ---
CM Note CM Note Notes: Spoke w/RN at [facility] where pt lives. She lives in their SNF and is dependent for all cares, when doing well she can feed herself but sometimes does need assistance, otherwise pt is roughly at baseline. They will take her back when medically stable. CM discussed dc poc with who is in agreement, CM will arrange for transport back to [facility] via [facility] stretcher, advised that I cannot guarantee Medicare will pay for it but he statys they have covered at least a portion in the past. CM to call Viola at [facility] [phone] and Fax orders to [phone] DC Plan: Dc back to [facility] via stretcher Date Signed: 03/23/2017 11:56 AM Electronically Signed By:Molly Drummond RN
--- NOTE | 2017-03-23 13:09 | WOCRNPDOC ---
WOCRN Advanced Assessment Note - Skin Integrity Problem, Advanced Assess Coccyx Pressure Injury Dressing Type: Open to Air Josefina Wound Tissue: Blanching Josefina Wound Swelling: None Wound Bed Color: [place] Wound Bed Constitution: Smooth Tissue Site Measurement - Head-to-Toe Length X Width X Depth (cm): 4x0.5x0.1 Pressure Injury Stage: Stage 2 Pressure Injury Present on Admit: Yes Skin Integrity Problem Comment: Patient identified during PIPP study 03/22 with a partial thickness opening to her coccyx, continuing proximally into the gluteal cleft. It is possible that this wound is of mixed etiology but because it presents over a bony prominance, it is suspected that pressure is involved. Will ensure proper turning schedules and surfaces are in place. Wound care will round again next week. Right Dorsal Foot Pressure Injury Dressing Type: Open to Air Exudate Amount: None Josefina Wound Tissue: Non-blanching (Skin intact) Josefina Wound Swelling: None Wound Bed Color: Purple Site Measurement - Head-to-Toe Length X Width X Depth (cm): 0.5x1.2xDTI Pressure Injury Stage: Deep Tissue Injury (DTI) Pressure Injury Present on Admit: Yes Skin Integrity Problem Comment: During PIPP study on 03/22, a urine saturated brace was removed from this patient's right ankle. Wound care was asked to see a "bruise" on the patient's dorsal foot believed to be related to the brace. When I see the patient, the brace remains off. The wound bed is a small area of dark purple with more diffuse, advertisement compositor purple markings. The skin remains in tact but is non-blanching. Will alert RN to consult wound care if this wound opens.
[2017-03-24 08:10] VITALS: RESP 18; TEMP 98.1
[2017-03-24] MEDS: MONTELUKAST SODIUM 10 MG TAB PO SCH (08:24)
[2017-03-24] MEDS: GABAPENTIN 300 MG CAP PO SCH (08:24)
[2017-03-24] MEDS: ATORVASTATIN CALCIUM 10 MG TAB PO SCH (08:24)
[2017-03-24] MEDS: DONEPEZIL HCL 5 MG TAB PO SCH (08:25)
[2017-03-24] MEDS: MULTIVITAMINS 1 EACH TAB PO SCH (08:25)
[2017-03-24] MEDS: PANTOPRAZOLE SODIUM 40 MG TAB PO SCH (08:25)
[2017-03-24] MEDS: POLYETHYLENE GLYCOL 3350 17 GM PKT PO SCH (08:25)
[2017-03-24] MEDS: SERTRALINE HCL 50 MG TAB PO SCH (08:25)
[2017-03-24] MEDS: ASPIRIN 325 MG TAB PO SCH (08:25)
[2017-03-24] MEDS: DOCUSATE SODIUM 100 MG CAP PO SCH (08:25)
[2017-03-24 08:26] VITALS: BP 134/63
[2017-03-24] MEDS: FLUTICASONE/SALMETER 100/50MCG DISKUS IH SCH (08:38)
[2017-03-24 08:44] VITALS: PULSE 73; O2SAT 92
--- NOTE | 2017-03-24 09:02 | HOSPPROG ---
Hospitalist Progress Note Assessment/Plan: Patient is a 77 y/o with progressive dementia who presented to the ER with somnolence. Today is my first encounter w the patient, chart reviewed. * stroke(low likelihood) vs cortical laminar necrosis -MRI shows acute ischemic from poss emboli or necrosis from a hypoxic event -CT scan shows suspected multifocal subacute infarctions in r parietal occipital , high bilateral posterior parietal and posterior l frontal lobe -reviewed telemetry - she is in sinus rhythm throughout her stay -asa therapy and statin therapy -due to her dementia it is hard to get a clear cut neuro exam, she is bedridden -will need a repeat MRI in 4 weeks *PRES (possible reversible encephalopathy syndrome )poss from htn -will treat her bp >160 -she is not on any bp agents, will start low dose Norvasc and prn hydralazine -reviewed her care with neurology -she is much clearer today with controlling her bp *acute on chronic encephalopathy -patient has underlying dementia -suspect the above added to her confusion -reviewed her care w Neurology, she should not get neuroleptics *dementia and Parkinsonism *Pyuria -likely chronic colonization *COPD -resumed inhaler *constipation -having regular bowel movements *plan: dc back to [place] Subjective: Bridgett is happy, no complaints. Objective: Vital Signs Temp Pulse Resp BP Pulse Ox 36.7 C 73 18 134/63 H 92 03/24/17 08:00 03/24/17 08:39 03/24/17 08:39 03/24/17 08:24 03/24/17 08:39 03/23/17 03/24/17 03/25/17 05:59 05:59 05:59 Intake Total 50 Balance 50 PT 12.9 SEC (12.0-15.0) 03/22/17 09:15 INR 0.95 (0.83-1.16) 03/22/17 09:15 - Physical Exam Constitutional: not in pain, chronically ill appearing Eyes: PERRL Ears, Nose, Mouth, Throat: hearing normal Cardiovascular: regular rate and rhythym Respiratory: no respiratory distress Gastrointestinal: normoactive bowel sounds Skin: warm Musculoskeletal: other (bedridden) Neurologic: other (alert, converasant and appropriate) Psychiatric: interacting appropriately, not anxious, not encephalopathic ICD10 Worksheet Patient Problems: Problems Problem Status Onset Altered mental status Acute Urinary tract infection Acute Lower limb nerve lesion Active Multiple myeloma in remission Active Back pain Acute Decubital ulcer Acute Knee pain, acute Acute Palliative care encounter Acute Yeast infection involving the vagina and surrounding area Acute GERD (gastroesophageal reflux disease) Chronic Hypertension Chronic
--- NOTE | 2017-03-24 09:09 | PDIAF ---
- Diagnosis Diagnosis: Poss PRES, acute on chronic encephalopathy Code Status: Full Code - Medication Management Discharge Medications: Medications to Continue on Transfer Fluticasone/Salmeter 100/50Mcg [Advair 100/50 (*)] 1 puffs IH BID 10/24/15 [ Last Taken 03/21/17 08:00] Herbals/Supplements -Info Only 1 ea PO DAILY 10/24/15 [Last Taken Unknown] celeCOXIB [Celebrex (*)] 200 mg PO BID@,10/24/15 [Last Taken 03/21/17 08:00 ] Gabapentin [Neurontin 300 MG (*)] 300 mg PO BID@,10/25/15 [Last Taken 03/21 08:00] Esomeprazole Mag Trihydrate [Nexium] 40 mg PO DAILY@05/12/16 [Last Taken 03/26 08:00] Montelukast Sodium [Singulair 10 mg (*)] 10 mg PO DAILY@05/12/16 [Last Taken 03/21/17 08:00] Polyethylene Glycol 3350 [Miralax 17 gm (*)] 17 gm PO DAILY PRN 05/12/16 [Last Taken 03/13/17] Acetaminophen [Tylenol 325mg (*)] 650 mg PO Q6 PRN 03/21/17 [Last Taken Unknown] Docusate Sodium [Colace 100 MG (*)] 100 mg PO DAILY@03/21/17 [Last Taken 03/26 08:00] Donepezil HCl [Aricept 5 MG (*)] 10 mg PO DAILY@03/21/17 [Last Taken 08:00] Mirabegron [Myrbetriq] 25 mg PO DAILY@03/21/17 [Last Taken 03/20/17] Multivitamins [Multivitamin (*)] 1 each PO DAILY 03/21/17 [Last Taken 03/21/17 08:00] Sertraline HCl [Zoloft 50mg (*)] 50 mg PO DAILY 03/21/17 [Last Taken 03/20/17] Aspirin [Aspirin 325 mg (*)] 325 mg PO DAILY tab 03/24/17 [Last Taken Unknown] Atorvastatin Calcium [Lipitor 10 mg (*)] 10 mg PO DAILY #0 tab 03/24/17 [Last Taken Unknown] amLODIPine BESYLATE [Norvasc 2.5 mg (*)] 2.5 mg PO DAILY tab 03/24/17 [Last Taken Unknown] Discharge Medications: Refer to the Discharge Home Medication list for PRN reason. - Orders Services needed: Physical Therapy, Occupational Therapy Diet Recommendation: no restrictions on diet Diet Texture: Regular Texture Diet, Thin Liquids, Meds Whole w/Liquids, Meds Whole in Puree Additional: Amarilys saldaña during hospital stay. New meds:Norvasc, aspirin, and liptior. Avoid all neuroleptics. She needs a repeat MRI in 4 weeks and f/u with neurology. - Follow Up Care Current Providers and Referrals: Yen Lou MD [Primary Care Provider] - As per Instructions
--- NOTE | 2017-03-24 09:15 | NEUROPROG ---
Assessment: BACKGROUND: 03/23 77 year old woman known to our practice from an admission in May 2016 for relatively rapidly progressive dementia. She was found to be parkinsonian with what appeared to be fluctuating LOC raising the likelihood of Lewy body dementia with parkinsonism. She had an unremarkable extensive workup for rapidly progressive dementia with MRI, extensive labs and CSF analysis, all of which were unyielding. She was discharged to a SNF with instructions to hold any neuroleptics. She reported back to our ED 03/21 as her SNF staff found her to be less verbal/ responsive. On admission, she was found to have an abnormal CT head wo with multiple areas of cortically based hypodensity concerning for ischemia. MRI brain wo was done showing rather symmetric restricted diffusion and T2 FLAIR hyperintensity in the the parasagittal/superior gyri from the occipital lobes to the frontal lobes. A few scattered areas of GRE blossoming were observed in these regions consistent with microbleeds. There is some faint reduced T1 signal in these regions, as well. On the floor, she is back to her baseline status without any focal deficits noted. She is baseline profoundly demented and bedbound with severe parkinsonism. There was no indication of any inciting event such as a cardiopulmonary event. The patient is unable to provide any meaningful history. No family is at bedside. I attempted to phone her to discuss her case but nobody answered. INTERVAL HISTORY: 03/24: No change in clinical status. Still no family at bedside and I am still unable to reach the patient's by telephone. EXAM: VS reviewed in EMR GEN: WDWN laying in NAD. Her mouth is agape and she is staring at the ceiling. NEURO: MS: awake, reduced attention, disoriented to all spheres. She is very hypomimetic and bradyphrenic. Paucity of speech production, and she tends to answer vaguely in 1-2 word responses. Her speech is hypophonic and bradykinetic. No apparent language disturbance. Follows simple appendicular commands. Attends to both sides. Clear episodic/recent/remote memory disturbance on casual conversation. Mood depressed/withdrawn. Unable to get a good sense of fund of knowledge. CN: pupils 3mm round and reactive. Blinks to threat OU. Primary gaze centered. Restricted vertical gaze. Smooth pursuit with saccadic intrusions and motor impersistence. Facial sensation preserved. Face symmetric. Hearing grossly intact to finger rub. Palate appears symmetric. She won't stick out her tongue, but there is a clear tremor of the tongue. Won't participate in shoulder shrug/head turn. MOTOR: reduced appendicular bulk. She has rigidity in all extremities about all joints. Subtle resting tremor of the hands is notes. She does not participate in formal segmental strength testing but raises arms off bed and wiggles toes symmetrically. SENSORY: withdraws to nox stim in all extremities. She cannot participate in double simultaneous stimulation exam. COORD: cannot assess FN/HS. Capo profoundly bradykinetic -3-4. REFLEX: plantars extensor. No clonus. DTRS 2/4. GAIT: not safe to assess DATA REVIEW: Labs reviewed in EMR PERSONALLY INTERPRETED RESULTS AND DATA: MRI brain as per the Background section IMPRESSION AND RECOMMENDATIONS: // ENCEPHALOPATHY - RESOLVED // ABNORMAL MRI - ? CORTICAL LAMINAR NECROSIS VS PRES VS LESS LIKELY STROKE // DEMENTIA AND PARKINSONISM - SUSPECT LBD Patient with an episode of being less responsive and verbal. She has an abnormal MRI which could represent cortical laminar necrosis from a hypoxic ischemic event vs. PRES from HTN. Less likely to be ischemic stroke given the pattern on MRI. There is no T1 hyperintensity in the regions of abnormality, which is typical of cortical laminar necrosis, but it may be too early for this to have developed. Cortical ribboning can also be seen in CJD, but the microhemorrhages are not typical and she is not displaying typical stigmata of CJD other than her dementia. I think it is important to clarify goals of care with her . She has very clear severe dementing illness with severe parkinsonism and is requiring SNF and is bedbound. She now has some process, which has resulted in extensive cortical damage. We could clarify this diagnosis with a repeat MRI in 4 weeks to see what evolves on the sequences. But we may want to shift to a palliative approach at this time given her overall clinical picture and severity. She can continue ASA 325mg daily - microhemorrhages do not preclude this. A statin can be introduced as well. Plan is for her to discharge back to SNF today. If aggressive measures are decided upon, a repeat MRI brain wow could be done in 4 weeks to clarify the diagnosis/MRI abnormality. However, overall I think a palliative approach would be more appropriate given her baseline status. Will sign off. Please recall PRN. Objective: Vital Signs Temp Pulse Resp BP Pulse Ox 36.7 C 73 18 134/63 H 92 03/24/17 08:00 03/24/17 08:39 03/24/17 08:39 03/24/17 08:24 03/24/17 08:39 03/23/17 03/24/17 03/25/17 05:59 05:59 05:59 Intake Total 50 Balance 50 PT 12.9 SEC (12.0-15.0) 03/22/17 09:15 INR 0.95 (0.83-1.16) 03/22/17 09:15 Allergies/Adverse Reactions: No Allergies [NKDA] Allergy (Unknown, Verified 08/20/12 13:30)
--- NOTE | 2017-03-24 10:46 | GDS ---
[f rep st] DISCHARGE SUMMARY DISCHARGE DIAGNOSES: 1. Acute on chronic encephalopathy, concern for stroke versus cortical laminar necrosis. 2. Possible posterior reversible encephalopathy syndrome from hypertension. 3. Dementia and parkinsonism. 4. Pyuria. 5. Chronic obstructive pulmonary disease.. 6. Constipation. CONSULTATION: Nikhil Deras DO Briefly, the patient is a 77-year-old female who was brought from [place] out of concern with increased somnolence. She has a history of rapidly progressive dementia as well as hyperlipidemia, osteoarthritis, UTIs. She had a CT scan of her head performed, which showed suspected multifocal subacute infarctions in the right parietal occipital, high bilateral posterior parietal and posterior left frontal lobe. It showed a query subtle hemorrhagic transformation in the high parietal posterior left lobe. Subsequently, an MRI was performed which showed features consistent with infarcts resulting from recent bilateral shower emboli affecting the right and left superior frontal, occipital and superior posterior parietal cortices. There was blooming artifact suggestive of occult hemorrhagic products associated with these areas of infarction versus an underlying amyloid angiopathy. She was seen and evaluated by Neurology. They noted that she has an abnormal MRI, is likely that she has a cortical laminar necrosis, but it may be too early for this to have developed. Recommended is got consideration of palliative care. If the family wishes further evaluation, they can get an MRI in 4 weeks. HOSPITAL COURSE: 1. Acute on chronic encephalopathy. Her mentation did clear throughout her stay. There was concern initially for a stroke, but it is likely cortical laminar necrosis. It is difficult to get a good neuro exam because she has significant dementia. 2. Possible PRES secondary from hypertension. Have treated her and brought her blood pressure down using Norvasc. She is improved. 3. Dementia and parkinsonism, at her baseline. 4. Pyuria, likely chronic colonization. 5. COPD, stable. Resumed her inhaler. 6. Constipation, resolved. DISCHARGE CONDITION: Stable. Blood pressure is 134/63, heart rate is 71, respiratory rate is 18, O2 saturation on 1 L 91%, temperature is 36.7 Celsius. MEDICATIONS AT DISCHARGE: Please see the EMR. New medications include aspirin, Lipitor and Norvasc. Please note, her narcotic was discontinued out of concern this makes her more confused. DISCHARGE INSTRUCTIONS: 1. Repeat MRI if the family would like further evaluation. 2. Recommending to look at palliative care. 3. If she develops fever, chills, chest pain, shortness of breath, or stroke- like symptoms return to the ER if the family wishes further treatment. Greater than 30 minutes. /[id number]/MODL MTDD
--- NOTE | 2017-03-24 18:13 | ASDISCHSUM ---
Discharge Information Plan Status:SNF Medically Cleared to Leave: Discharge Date:03/24/2017 02:00 PM CM D/C Disposition:[facility] Facility ADT D/C Disposition:[facility] Facility Projected Discharge Date:03/24/2017 01:00 PM Transportation at D/C:ALS/BLS Discharge Delay Reason: Follow-Up Date:03/24/2017 01:00 PM Discharge Slot: Final Diagnosis: Placement Information Referral Type:*Shelter/SNF Referral ID:[id number] Provider Name:[facility] Address 1:[address] Address 2: City:[place] Selection Factors: State:[place] Patient Contact Information Contact Name:JAE Relationship: Address:[address] Work Phone: [facility] Phone: State/Zip Code:[place] [address] Email: Financial Information Financial Class:Medicare Advantage Plans Primary Plan Desc:[employer] MEDICARE ADV Primary Plan Number:[id number] Secondary Plan Desc: Secondary Plan Number: Assessment Information [facility] Progress Note CM Note VLAD Note Notes: Spoke w/RN at [facility] where pt lives. She lives in their SNF and is dependent for all cares, when doing well she can feed herself but sometimes does need assistance, otherwise pt is roughly at baseline. They will take her back when medically stable. VLAD discussed dc poc with who is in agreement, CM will arrange for transport back to [facility] via [employer], advised that I cannot guarantee Medicare will pay for it but he statys they have covered at least a portion in the past. VLAD to call Viola at [facility] [phone] and Fax orders to [phone] DC Plan: Dc back to [facility] via [facility] Date Signed: 03/23/2017 11:56 AM Electronically Signed By:Molly Drummond RN Case Management Discharge Plan Note Case Management Discharge Discharge Order Complete? Answers: Yes Patient to Obtain Answers: Other Notes: [facility] Transportation Arranged Answers: [facility] will Pick (Date 03/24/2017 01:00 PM & Time) Faxed Final Orders Answers: Yes Family Notified Answers: Yes Discharge Comments Notes: D/w [facility], final orders faxed. Viola mcgovern [facility] RN to call report. VLAD called and informed him of crop picker time. Date Signed: 03/24/2017 11:40 AM Electronically Signed By:Molly Drummond RN Intervention Information
== END 2017-03-24 14:00 | DRG 72 ==
LOC: EDUNIT# → F3E 22:17 → OBSVTOIN 03-22 15:36
PROVIDERS: ADMIT Internal Medicine; ATTEND Internal Medicine
DX: G93.40 Encephalopathy, unspecified (principal); I67.83 Posterior reversible encephalopathy syndrome; G31.83 Neurocognitive disorder with Lewy bodies; F02.80 Dementia in other diseases classified elsewhere, unspecified severity, without behavioral disturbance, psychotic disturbance, mood disturbance, and anxiety; L89.152 Pressure ulcer of sacral region, stage 2; K21.9 Gastro-esophageal reflux disease without esophagitis; K59.00 Constipation, unspecified; G89.29 Other chronic pain; I10 Essential (primary) hypertension; I69.898 Other sequelae of other cerebrovascular disease; Z87.440 Personal history of urinary (tract) infections; Z85.3 Personal history of malignant neoplasm of breast; Z74.01 Bed confinement status
CPT/HCPCS: 80305; 92610-GN; 96365; G0378; G0480; G8996-GN-CI; G8997-GN-CI; G8998-GN-CI; J0696